=== PATIENT | female | born 1960 | race Caucasian/White ===

== ENCOUNTER → 2018-02-07 | Outpatient (CLI) | payer BC ==
--- NOTE | 2018-02-09 12:51 | RADIOLOGY REPORT (SQ) ---
EXAM DESCRIPTION: MRI PELVIS COMBO COMPLETED DATE/TIME: 02/07/2018 REASON FOR STUDY: RECTAL CANCER C20 MALIGNANT NEOPLASM OF RECTUM COMPARISON: None. TECHNIQUE: Sagittal, axial oblique, and coronal oblique T2-weighted images of the pelvis centered on the rectum. Additional postcontrast images are obtained. 10 cc ProHance. GFR greater than 60. FINDINGS: BRIEF DESCRIPTION OF MASS: Partially circumferential wall thickening in the rectum. Irreg ular wall thickening most pronounced posteriorly. LOCATION OF TUMOR: low. 0-5 cm. DISTANCE FROM ANORECTAL JUNCTION TO LOWER POLE OF TUMOR: 0 cm. LENGTH OF TUMOR: 3.9 cm. EXTENSION BEYOND MUSCULARIS PROPIA: Irregular spiculation along the left aspect of the mass and poste riorly, suspected extension into the mesorectum. Regional T2 hyperintense presacral edema. INVOLVEMENT OF THE MESORECTAL FASCIA: Yes, extension to involve the posterior mesorectal fascia. PATHOLOGIC LYMPH NODES: None suggested. BONES: Hyperintense T2 lesions in the sacrum, potentially underlying metastatic disease. OTHER: Bladder unremarkable. IMPRESSION: LOW RECTAL TUMOR WITH INVASION OF THE MESORECTAL MK AND EXTENSION TO INVOLVE THE MESOREC GUEVARA FASCIA. BONE LESIONS OUTLINED ABOVE, CONSIDER BONE SCAN EVALUATION. TECHNICAL DOCUMENTATION: JOB ID: [id number] [employer]- All Rights Reserved Reading location - IP/workstation name: [email or web address]
== END ==
LOC: RAD 08:19
PROVIDERS: ATTEND Internal Medicine Hematology & Oncology
DX: C20 Malignant neoplasm of rectum (principal)
CPT/HCPCS: 82565; 72197; A9576

== ENCOUNTER → 2018-02-11 | Outpatient (CLI) | payer BC ==
--- NOTE | 2018-02-11 10:31 | RADIOLOGY REPORT (SQ) ---
EXAM DESCRIPTION: CT CHEST WITH COMPLETED DATE/TIME: 02/11/2018 10:13 am REASON FOR STUDY: RECTAL CA C20 MALIGNANT NEOPLASM OF RECTUM COMPARISON: MR pelvis dated 02/07/2018 TECHNIQUE: CT scan of the chest performed using helical scanning technique with dynamic intravenous contrast injection. Images reviewed with lung, soft tissue and bone windows. Reconstructed coronal and sagittal MPR and MIP images reviewed. All images stored on PACS. All CT scanners at this facility use dose modulation, iterative reconstruction, and/or weight based d osing when appropriate to reduce radiation dose to as low as reasonably achievable (ALARA). [facility]: Dose Right [facility]: CareDose [facility]: Dose Right [facility]: Teradose 4D [facility]: [employer]Spring CONTRAST TYPE AND DOSE: 76.2 mL Isovue 370- low osmolar. RENAL FUNCTION: Creatinine 0.8 RADIATION DOSE: . LIMITATIONS: None. FINDINGS: LUNGS AND PLEURA: There are multiple bilateral subpleural nodules. These are nonspecific. These range in size from approximately 3.6 mm up to 6.8 mm. No consolidation or effusions. HILAR AND MEDIASTINAL STRUCTURES: No identified masses or abnormal nodes. HEART AND VASCULAR STRUCTURES: No aneurysm or dissection. No central pulmonary emboli. No pericardi al effusion. HARDWARE: None in the chest. UPPER ABDOMEN: No significant findings. Limited exam. THYROID AND OTHER SOFT TISSUES: No masses. No adenopathy. BONES: No significant finding. OTHER: No other significant finding. IMPRESSION: Multiple small subpleural pulmonary nodules. These are nonspecific but will need follow up. TECHNICAL DOCUMENTATION: JOB ID: [id number] Quality ID # [id number]: Final reports with documentation of one or more dose reduction techniques (e.g., Au tomated exposure control, adjustment of the mA and/or kV according to patient size, use of iterative reconstruction technique) 2010 [employer]- All Rights Reserved Reading location - IP/workstation name: [email or web address]
--- NOTE | 2018-02-11 10:33 | RADIOLOGY REPORT (SQ) ---
EXAM DESCRIPTION: CT ABDOMEN WITH IV ORAL CONT COMPLETED DATE/TIME: 02/11/2018 10:13 am REASON FOR STUDY: RECTAL CA C20 MALIGNANT NEOPLASM OF RECTUM COMPARISON: None. TECHNIQUE: CT scan of the abdomen performed with intravenous and with oral contrast using helical sc anning technique with dynamic intravenous contrast injection. Images reviewed with lung, soft tissue, and bone windows. Reconstructed coronal and sagittal MPR images reviewed. Delayed images for evaluat ion of the urinary system also acquired and evaluated. All images stored on PACS. All CT scanners at this facility use dose modulation, iterative reconstruc tion, and/or weight based dosing when appropriate to reduce radiation dose to as low as reasonably ac hievable (ALARA). [facility]: Dose Right [facility]: CareDose [facility]: Dose Right [facility]: Teradose 4D [facility]: [employer] CONTRAST TYPE AND DOSE: contrast/concentration: Isovue 350.00 mg/ml; Total Contrast Delivered: 76.0 ml; Total Saline Delivered: 67.0 ml RENAL FUNCTION: Creatinine 0.8 RADIATION DOSE: CT Rad equipment meets quality standard of care and radiation dose reduction techniq ues were employed. CTDIvol: 4.4 - 4.6 mGy. DLP: 446 mGy-cm. . LIMITATIONS: None. FINDINGS: LOWER CHEST: Please refer to the chest CT for lung findings. There are small subpleural n odules. LIVER: No masses. There are mildly prominent central bile ducts. SPLEEN: Normal size. No focal lesions. PANCREAS: No masses. No significant calcifications. No adjacent inflammation or peripancreatic fluid collections. Pancreatic duct not dilated. GALLBLADDER: There is large amount of gallbladder sludge. Probable septation in the gallbladder neck . Correlation with ultrasound is recommended. ADRENAL GLANDS: No significant masses or asymmetry. RIGHT KIDNEY AND URETER: No solid masses. No significant calcifications. No hydronephrosis or hyd roureter. LEFT KIDNEY AND URETER: No solid masses. No significant calcifications. No hydronephrosis or hydr oureter. AORTA AND VESSELS: No aneurysm. No dissection. Renal arteries, SMA, celiac without stenosis. RETROPERITONEUM: No retroperitoneal adenopathy, hemorrhage or masses. BOWEL AND PERITONEAL CAVITY: No masses or inflammatory changes. No free fluid or peritoneal masses. APPENDIX: Not imaged. ABDOMINAL WALL: No masses. No hernias. BONES: No significant or acute findings. OTHER: No other significant finding. IMPRESSION: 1. Large amount of gallbladder sludge with mildly dilated central bile ducts. Correlati on with ultrasound is recommended. No other significant findings. TECHNICAL DOCUMENTATION: JOB ID: [id number] Quality ID # [id number]: Final reports with documentation of one or more dose reduction techniques (e.g., Au tomated exposure control, adjustment of the mA and/or kV according to patient size, use of iterative reconstruction technique) 2010 [employer]- All Rights Reserved Reading location - IP/workstation name: [email or web address]
== END ==
LOC: RAD 08:20
PROVIDERS: ATTEND Internal Medicine Hematology & Oncology
DX: C20 Malignant neoplasm of rectum (principal); R91.8 Other nonspecific abnormal finding of lung field
CPT/HCPCS: 71260; 74160

== ENCOUNTER → 2018-02-24 | Outpatient (CLI) | payer BC ==
--- NOTE | 2018-02-25 09:22 | RADIOLOGY REPORT (SQ) ---
EXAM DESCRIPTION: PET CT SKULL/THIGH COMPLETED DATE/TIME: 02/24/2018 8:10 pm REASON FOR STUDY: RECTAL CANCER C20 MALIGNANT NEOPLASM OF RECTUM COMPARISON: None. RADIONUCLIDE AND DOSE: 10.4 mCi F18 FDG The route of agent administration: Intravenous FASTING BLOOD SUGAR: 87 mg/dl CONTRAST TYPE AND DOSE: No CT contrast given. TECHNIQUE: Blood glucose level was verified. Above dose of FDG was injected intravenously. 2-D seg mented attenuation correction images were obtained from the base of the skull to the midthighs. Nonc ontrast CT images were obtained for attenuation correction and fusion with emission images. CT image s were performed without oral or intravenous contrast and are not sensitive for parenchymal lesions. A series of overlapping emission PET images were obtained. Images reviewed and manipulated at [facility] [employer] work station by the radiologist. Images stored on PACS. LIMITATIONS: None. FINDINGS: HEAD AND NECK: No areas of abnormal metabolic activity in the soft tissues of the head and neck. CHEST: No areas of abnormal metabolic activity in the chest. ABDOMEN AND PELVIS: Several hypermetabolic retroperitoneal nodes measuring 3.5 to 4.0 SUV. Morpholog ically up to 1 cm. Hypermetabolic pelvic nodes measuring 3.1 to 3.5 SUV. Largest is a right externa l iliac chain node measuring 1.5 cm and 6.1 to 6.8 SUV. Hypermetabolic rind of right rectal tissue 5 .4 to 6.5 SUV. PROXIMAL LOWER EXTREMITIES: No areas of abnormal metabolic activity in the soft tissues of the lower extremities. BONES: No abnormal metabolic activity in the visualized skeleton. ADDITIONAL CT FINDINGS: Stable occasional subpleural nodules measuring up to about 6 mm in the right lower lobe. Non hypermetabolic but below size threshold for negative predictive value. OTHER: No other significant findings. IMPRESSION: Hypermetabolic rectal mass. Hypermetabolic pelvic and retroperitoneal nodes. TECHNICAL DOCUMENTATION: JOB ID: [id number] [employer]- All Rights Reserved Reading location - IP/workstation name: [email or web address]
== END ==
LOC: RAD 17:42
PROVIDERS: ATTEND Radiology Radiation Oncology
DX: C20 Malignant neoplasm of rectum (principal)
CPT/HCPCS: 78815; A9552

== ENCOUNTER 2018-03-23 05:54 | Day surgery (SDC) | payer BC ==
[~2018-03-23 05:54] MED LIST: CEFAZOLIN 2 GM/D5W RTU 2 GM/50 ML RTUPB IV PRN; DIAZEPAM 5 MG TABLET PO PRN; OXYCODONE-ACETAMINOPHEN 5-325 MG TABLET PO PRN
--- NOTE | 2018-03-23 06:23 | RADIOLOGY REPORT (SQ) ---
EXAM DESCRIPTION: X-ray single view chest. CLINICAL HISTORY: 57 years Female, preop COMPARISON: None. TECHNIQUE: Single portable view of the chest performed on 03/23/2018 at 6:17 AM FINDINGS: The lungs are well expanded and are clear. There is no evidence of a pneumothorax. The cardiac silhouette is normal in size and configuration. The mediastinal contours are normal. No acute osseous abnormality is identified. No focal soft tissue abnormalities are seen. Lines and tubes: None. IMPRESSION: No evidence of acute intrathoracic disease.
[2018-03-23 06:37] LABS: ABSOLUTE BASOPHILS # (AUTO) 0.1 10^3/uL (0.0-0.2); ABSOLUTE EOSINOPHILS # (AUTO) 0.4 10^3/uL (0.0-0.6); ABSOLUTE LYMPHOCYTES (AUTO) 1.8 10^3/uL (0.5-4.7); ABSOLUTE MONOCYTES (AUTO) 0.4 10^3/uL (0.1-1.4); ABSOLUTE NEUT (AUTO) 3.5 10^3/uL (1.7-8.2); BASOPHILS % (AUTO) 0.8 % (0-2); EOSINOPHILS % (AUTO) 6.5 % (0-6); HEMATOCRIT 38.7 % (36.0-47.0); HEMOGLOBIN 13.7 g/dL (12.0-15.5); LYMPHOCYTES % (AUTO) 29.2 % (13-45); MEAN CORPUSCULAR HEMOGLOBIN 30.5 pg (27.0-33.4); MEAN CORPUSCULAR HGB CONC 35.4 g/dL (32.0-36.0); MEAN CORPUSCULAR VOLUME 86 fl (80-97); MONOCYTES % (AUTO) 6.4 % (3-13); PLATELET COUNT 181 10^3/uL (150-450); RED BLOOD COUNT 4.49 10^6/uL (3.72-5.28); RED CELL DISTRIBUTION WIDTH 12.8 % (11.5-14.0); SEGMENTED NEUTROPHILS % (AUTO) 57.1 % (42-78); TOTAL CELLS COUNTED % (AUTO) 100 %; WHITE BLOOD COUNT 6.1 10^3/uL (4.0-10.5)
[2018-03-23] MEDS ORDERED: OXYCODONE-ACETAMINOPHEN 5-325 MG TABLET ONE (06:37)
[2018-03-23] MEDS ORDERED: DIAZEPAM 5 MG TABLET ONE (06:37)
[2018-03-23] MEDS ORDERED: CEFAZOLIN 1 GM/D5W RTU 1 GM/50 ML RTUPB IV ONE (06:38)
[2018-03-23 06:59] LABS: ANION GAP 9 (5-19); BLOOD UREA NITROGEN 11 mg/dL (7-20); CALCIUM 9.4 mg/dL (8.4-10.2); CARBON DIOXIDE 27 mmol/L (22-30); CHLORIDE 107 mmol/L (98-107); GLUCOSE 96 mg/dL (75-110); POTASSIUM 3.9 mmol/L (3.6-5.0); SODIUM 142.8 mmol/L (137-145)
[2018-03-23] MEDS ORDERED: BACITRACIN INJ 50,000 UNIT VIAL ONE (07:18)
[2018-03-23] MEDS ORDERED: LIDOCAINE 0.5% INJ-PF (5 MG/ML) 50 ML SDV ONE (07:18)
[2018-03-23] MEDS ORDERED: MIDAZOLAM 2 MG/2 ML INJ ONE (07:42)
[2018-03-23] MEDS ORDERED: FENTANYL CITRATE INJ/PF 100 MCG/2 ML AMPUL ONE (07:42)
--- NOTE | 2018-03-23 08:44 | Discharge Summary ---
Discharge Summary (SDC) - Discharge Final Diagnosis: Rectal cancer Date of Surgery: 03/23/18 Discharge Date: 03/23/18 Condition: Good Treatment or Instructions: Discharge home [after recovery per ASU criteria]. Diet , as tolerated, when fully awake advance as tolerated. Activities within moderation encouraged. Follow up in my office by appointment in about [1 week]. Call for appointment. Leave wounds [covered], [keep clean and dry, until office visit in 1 week]. Hold of on school/work [until evaluation in office]. Meds per med rec. May shower [in 48 hrs], [try to keep operated area as dry as possible]. Referrals: GÓMEZ PETERSON MD [Primary Care Provider] - Discharge Diet: As Tolerated Respiratory Treatments at Home: Deep Breathing/Coughing Discharge Activity: Activity As Tolerated Report the Following to Your Physician Immediately: Shortness of Breath, Unusual Bleeding
--- NOTE | 2018-03-23 08:47 | Operative Report ---
Operative Report DATE OF SURGERY: 03/23/18 PREOPERATIVE DIAGNOSIS: Rectal cancer POSTOPERATIVE DIAGNOSIS: Rectal cancer OPERATION: 1. Ultrasound evaluation of the right internal jugular vein. 2. Insertion of single-lumen Port-A-Cath via real time access in the right internal jugular vein. 3. Angiogram and interpretation. SURGEON: [employer]ICE LEAD: None. ANESTHESIA: Moderate Sedation TISSUE REMOVED OR ALTERED: Not applicable. COMPLICATIONS: None. ESTIMATED BLOOD LOSS: 5 mL. INTRAOPERATIVE FINDINGS: Of a satisfactory right internal jugular vein, about 1.5 cm in diameter. Satisfactory and safe access under ultrasound guidance. Satisfactory position with the tip of the catheter just down in the right atrium. Easy egress of blood and ingress of heparinized solution. Smooth flow of contrast through the right atrium ventricle and pulmonary outflow tract. PROCEDURE: After obtaining informed consent, the patient was taken to the [facility] and positioned supine. The [right] neck and chest were prepared with chlorhexidine and draped out with sterile linen. After the " universal timeout", in which it was verified that the patient continued to receive antibiotic, the procedure commenced. A steriley sheathed ultrasound probe was used to evaluate the [ right] internal jugular vein. Local anesthesia was infiltrated adjacent to the probe. Access into the [right] internal jugular vein was obtained using a micropuncture needle, followed by micropuncture wire and then a micropuncture catheter. This was followed by introduction of a 0.035 guidewire the tip of which was placed down into the inferior vena cava . The port sites was marked , locally anesthetized and incision made. Dissection now proceeded to the deep subcutaneous subcutaneous tissues so that a pocket for the port was made. Meticulous hemostasis was secured and the catheter was tunneled between the 2 incisions. Proximally, the catheter was now positioned using a peel-away sheath. Distally the catheter was tailored to an appropriate length and then mated to the port using the contained fixating device. The port was now placed in the pocket and the catheter optimally positioned. The port was accessed with a Mendenhall needle and an angiogram done under digital subtraction. The findings as dictated. With adequate and satisfactory positioning, both lumens of the chamber were irrigated with heparinized solution. The wounds were now closed using interrupted 3-0 PDS to the subcutaneous tissues and a continuous subcuticular suture of 4-0 Monocryl to the skin. These are reinforced with Steri-Strips over benzoin and then dressings applied. Time: 0.3 minute. Dose: 3.44 m Gy Contrast: 5 Mls. Isovue 300. Copies of the dictated operative report for Dr. Cisco Gilbert MD.
--- NOTE | 2018-03-23 10:02 | RADIOLOGY REPORT (SQ) ---
EXAM DESCRIPTION: PORTACATH INSERTION COMPLETED DATE/TIME: 03/23/2018 8:45 am REASON FOR STUDY: C20 RECTAL CA C20 MALIGNANT NEOPLASM OF RECTUM COMPARISON: None. FLUOROSCOPY TIME: 0.3 minutes 14 digital radiographic images saved to PACS. TECHNIQUE: Intra-operative images acquired during surgical procedure to evaluate progress. NUMBER OF IMAGES: 14 digital radiographic images LIMITATIONS: None. FINDINGS: Intra procedural imaging and fluoro during placement of a central venous catheter by Dr. Jesus candelario in the laborer aquatic life. Please see the operative report IMPRESSION: IMAGE(S) OBTAINED DURING PROCEDURE. COMMENT: Quality ID [id number]: Final reports for procedures using fluoroscopy that document radiation exp osure indices, or exposure time and number of fluorographic images (if radiation exposure indices are not available) Please consult full operative report of the attending physician for description of the procedure. TECHNICAL DOCUMENTATION: JOB ID: [id number] [employer]- All Rights Reserved Reading location - IP/workstation name: [email or web address]
[2018-03-23 11:29] VITALS: BP 164/97
== END 2018-03-23 10:10 | disposition home or self-care (01) ==
LOC: CCL 05:54
PROVIDERS: ATTEND Surgery
DX: C20 Malignant neoplasm of rectum (principal); I10 Essential (primary) hypertension; E78.00 Pure hypercholesterolemia, unspecified; F17.210 Nicotine dependence, cigarettes, uncomplicated; Z79.899 Other long term (current) drug therapy; Z79.82 Long term (current) use of aspirin; Z79.1 Long term (current) use of non-steroidal anti-inflammatories (NSAID); Z01.818 Encounter for other preprocedural examination
CPT/HCPCS: 36415; 85025; 80048; 36561; 76937; 77001; 71045; C1752; C1788; J2250; J3490 ×2; J0690; J3010; J1644

== ENCOUNTER → 2018-04-01 | Outpatient (CLI) | payer BC ==
[2018-04-01 12:05] LABS: ABSOLUTE EOSINOPHILS # (AUTO) 0.4 10^3/uL (0.0-0.6); ABSOLUTE LYMPHOCYTES (AUTO) 1.4 10^3/uL (0.5-4.7); ABSOLUTE MONOCYTES (AUTO) 0.4 10^3/uL (0.1-1.4); ABSOLUTE NEUT (AUTO) 4.5 10^3/uL (1.7-8.2); BASOPHILS % (AUTO) 0.7 % (0-2); EOSINOPHILS % (AUTO) 5.7 % (0-6); HEMATOCRIT 40.1 % (36.0-47.0); HEMOGLOBIN 14.3 g/dL (12.0-15.5); LYMPHOCYTES % (AUTO) 21.3 % (13-45); MEAN CORPUSCULAR HEMOGLOBIN 30.5 pg (27.0-33.4); MEAN CORPUSCULAR HGB CONC 35.7 g/dL (32.0-36.0); MEAN CORPUSCULAR VOLUME 85 fl (80-97); MONOCYTES % (AUTO) 6.2 % (3-13); PLATELET COUNT 218 10^3/uL (150-450); RED BLOOD COUNT 4.71 10^6/uL (3.72-5.28); RED CELL DISTRIBUTION WIDTH 12.9 % (11.5-14.0); SEGMENTED NEUTROPHILS % (AUTO) 66.1 % (42-78); TOTAL CELLS COUNTED % (AUTO) 100 %; WHITE BLOOD COUNT 6.8 10^3/uL (4.0-10.5)
[2018-04-01 12:17] LABS: BLOOD UREA NITROGEN 12 mg/dL (7-20)
[2018-04-01 12:41] LABS: CARCINOEMBRYONIC ANTIGEN 5.6 ng/mL (<3.0)
== END ==
LOC: OD 10:48
PROVIDERS: ATTEND Radiology Radiation Oncology
DX: C20 Malignant neoplasm of rectum (principal); C77.5 Secondary and unspecified malignant neoplasm of intrapelvic lymph nodes; C77.2 Secondary and unspecified malignant neoplasm of intra-abdominal lymph nodes
CPT/HCPCS: 36415; 82378; 82565; 84520; 85025

== ENCOUNTER → 2018-06-05 | Outpatient (CLI) | payer BC ==
--- NOTE | 2018-06-05 10:19 | RADIOLOGY REPORT (SQ) ---
EXAM DESCRIPTION: CT CHEST WITH COMPLETED DATE/TIME: 06/05/2018 9:46 am REASON FOR STUDY: C20 MALIGNANT NEOPLASM OF RECTUM R91.1 SOLITARY PULMONARY NODULE C20 MALIGNANT NE OPLASM OF RECTUM R91.1 SOLITARY PULMONARY NODULE COMPARISON: PET-CT 02/24/2018 CT chest abdomen pelvis 02/11/2018 TECHNIQUE: CT scan of the chest performed using helical scanning technique with dynamic intravenous contrast injection. Images reviewed with lung, soft tissue and bone windows. Reconstructed coronal and sagittal MPR and MIP images reviewed. All images stored on PACS. All CT scanners at this facility use dose modulation, iterative reconstruction, and/or weight based d osing when appropriate to reduce radiation dose to as low as reasonably achievable (ALARA). [facility]: Dose Right [facility]: CareDose [facility]: Dose Right [facility]: Teradose 4D [facility]: [employer] CONTRAST TYPE AND DOSE: contrast/concentration: Isovue 350.00 mg/ml; Total Contrast Delivered: 80.0 ml; Total Saline Delivered: 55.0 ml RENAL FUNCTION: Creatinine 0.6 RADIATION DOSE: CT Rad equipment meets quality standard of care and radiation dose reduction techniq ues were employed. CTDIvol: 3.5 mGy. DLP: 126 mGy-cm. . LIMITATIONS: None. FINDINGS: LUNGS AND PLEURA: No acute infiltrates. No pleural effusion or pneumothorax. There are multiple small less than 5 mm noncalcified subpleural nodules along the periphery of both l ungs, likely benign postinflammatory change. These findings are stable compared to both prior studie s. HILAR AND MEDIASTINAL STRUCTURES: No identified masses or abnormal nodes. HEART AND VASCULAR STRUCTURES: No aneurysm or dissection. No central pulmonary emboli. No pericardi al effusion. HARDWARE: Right jugular central line tip superior vena cava. UPPER ABDOMEN: No significant findings. Limited exam. THYROID AND OTHER SOFT TISSUES: No masses. No adenopathy. BONES: No significant finding. OTHER: No other significant finding. IMPRESSION: Multiple small less than 5 mm noncalcified bilateral subpleural nodules, likely benign p ostinflammatory change. These are stable compared to 02/24/2018 and 02/11/2018 exams TECHNICAL DOCUMENTATION: JOB ID: [id number] Quality ID # [id number]: Final reports with documentation of one or more dose reduction techniques (e.g., Au tomated exposure control, adjustment of the mA and/or kV according to patient size, use of iterative reconstruction technique) 2010 [employer]- All Rights Reserved Reading location - IP/workstation name: [email or web address]
== END ==
LOC: RAD 13:35
PROVIDERS: ATTEND Internal Medicine Hematology & Oncology
DX: C20 Malignant neoplasm of rectum (principal); R91.8 Other nonspecific abnormal finding of lung field
CPT/HCPCS: 71260

== ENCOUNTER → 2018-07-02 | Outpatient (CLI) | payer BC ==
--- NOTE | 2018-07-02 19:55 | DRAGON STRESS TEST REPORT ---
Exercise EKG treadmill stress test. Data procedure: July 02, 2018 Indication: Preop cardiac clearance and chest pain. Coronary risk factors: Smoking, dyslipidemia, hypertension. Significant physical findings prior to stress testing show a blood pressure of 77, and a heart rate of 132/80 beats per minute. Brief exam revealed no contraindication for patient proceeding with treadmill stress test. Resting 12-lead EKG: Sinus rhythm, no baseline ST-T wave changes are noted. Procedure: The patient was excised on a standard Benjamin protocol. The patient walked a total of 6 minutes minutes and 0 seconds on this protocol and reached a peak heart rate of 139 beats per minute, which is 84 percent of maximum predicted heart rate for age. This is at a workload of 7.0 METS. The test was stopped because of fatigue and tiredness. The patient described no symptoms of chest pain. Exercise EKG's show: No significant ST segment changes. Arrhythmias seen: None The blood pressure response was adequate. At peak exercise the blood pressure was 178/86 millimeters of Hg. The double product was 24.4 K. Summary of findings and interpretation: 1. No chest pain or chest discomfort symptoms reproduced. 2. No EKG evidence of ischemia in the form of ST segment depression. 3. Normal blood pressure response. 4. No arrhythmias seen. 5. Average exercise tolerance, average aerobic capacity. Diagnostic treadmill stress test negative for ischemia by EKG criteria. Recommendations: Aggressive risk factor modification, and treatment of underlying co-morbidities. Sunni Charles M.D., [employer] Examiner catalog specialist, Board certified in cardiovascular diseases, Nuclear cardiology, Echocardiography Cardiac CT and cardiac MRI Ph. [phone] [facility]
== END ==
LOC: SP 09:36
PROVIDERS: ATTEND Surgery
DX: R07.9 Chest pain, unspecified (principal); F17.200 Nicotine dependence, unspecified, uncomplicated
CPT/HCPCS: 93017

== ENCOUNTER → 2018-07-28 | Outpatient (CLI) | payer BC ==
--- NOTE | 2018-07-28 15:55 | RADIOLOGY REPORT (SQ) ---
EXAM DESCRIPTION: MRI HEAD COMBO COMPLETED DATE/TIME: 07/28/2018 3:41 pm REASON FOR STUDY: FACIAL NUMBNESS,RECTAL CA R29.818 OTHER SYMPTOMS AND SIGNS INVOLVING THE NERVOUS SYSTE C20 MALIGNANT NEOPLASM OF RECTUM COMPARISON: None. TECHNIQUE: Multiplanar imaging includes noncontrasted T1, T2, FLAIR, and Diffusion with ADC map seq uences. Contrast enhanced T1 images. Images stored on PACS. CONTRAST TYPE AND DOSE: 10 mL Dotarem. RENAL FUNCTION: GFR > 60. LIMITATIONS: None. FINDINGS: ANATOMY: No anomalies. Normal vascular flow voids. Pituitary fossa normal. CSF SPACES: Normal size and contour. No hemorrhage. CEREBRUM: A few high-signal intensity lesions scattered throughout the white matter on FLAIR imaging with distribution suggesting chronic microvascular ischemic change. Sulci and gyri normal in size and contour. No evidence of hemorrhage, mass or extraaxial fluid collection. No enhancing lesions. POSTERIOR FOSSA: No signal alteration. No hemorrhage. No edema, masses or mass effect. Internal audit ory canals, cerebello-pontine angles, mastoids normal. DIFFUSION: Negative for acute or subacute infarction. ORBITS: No masses. Globes normal. PARANASAL SINUSES: No fluid levels. Mucosa normal. OTHER: No other significant finding. IMPRESSION: No evidence of metastatic disease. EVIDENCE OF ACUTE STROKE: NO. TECHNICAL DOCUMENTATION: JOB ID: [id number] [employer]- All Rights Reserved Reading location - IP/workstation name: [email or web address]
== END ==
LOC: RAD 14:50
PROVIDERS: ATTEND Internal Medicine Hematology & Oncology
DX: C20 Malignant neoplasm of rectum (principal); R29.818 Other symptoms and signs involving the nervous system
CPT/HCPCS: 70553; 82565

== ENCOUNTER 2018-07-31 08:09 | Observation (INO) | payer BC ==
--- NOTE | 2018-07-24 10:38 | RADIOLOGY REPORT (SQ) ---
EXAM DESCRIPTION: CHEST PA/LATERAL COMPLETED DATE/TIME: 07/24/2018 10:29 am REASON FOR STUDY: PRE-OP COMPARISON: None. EXAM PARAMETERS: NUMBER OF VIEWS: two views TECHNIQUE: Digital Frontal and Lateral radiographic views of the chest acquired. RADIATION DOSE: NA LIMITATIONS: none FINDINGS: LUNGS AND PLEURA: No opacities, masses or pneumothorax. No pleural effusion. MEDIASTINUM AND HILAR STRUCTURES: No masses or contour abnormalities. HEART AND VASCULAR STRUCTURES: Heart normal size. No evidence for failure. BONES: No acute findings. HARDWARE: Right Kmygnj-P-Noje catheter. OTHER: No other significant finding. IMPRESSION: 1. NO SIGNIFICANT RADIOGRAPHIC FINDING IN THE CHEST. TECHNICAL DOCUMENTATION: JOB ID: [id number] [employer]- All Rights Reserved Reading location - IP/workstation name: [email or web address]
[2018-07-24 11:10] LABS: HEMATOCRIT 38.3 % (36.0-47.0); HEMOGLOBIN 13.4 g/dL (12.0-15.5); MEAN CORPUSCULAR HEMOGLOBIN 31.7 pg (27.0-33.4); MEAN CORPUSCULAR VOLUME 91 fl (80-97); PLATELET COUNT 180 10^3/uL (150-450); RED BLOOD COUNT 4.23 10^6/uL (3.72-5.28); RED CELL DISTRIBUTION WIDTH 13.3 % (11.5-14.0)
[2018-07-24 11:39] LABS: ANION GAP 7 (5-19); BLOOD UREA NITROGEN 16 mg/dL (7-20); CALCIUM 9.3 mg/dL (8.4-10.2); CARBON DIOXIDE 31 mmol/L (22-30); CHLORIDE 104 mmol/L (98-107); GLUCOSE 93 mg/dL (75-110); POTASSIUM 4.3 mmol/L (3.6-5.0); SODIUM 141.6 mmol/L (137-145)
[~2018-07-31 08:09] MED LIST changes: +BUPIVACAINE HCL 0.25 % INJ/PF (2.5 MG/1 ML) 30 ML VIAL ONE; -CEFAZOLIN 2 GM/D5W RTU 2 GM/50 ML RTUPB IV PRN; +CEFOXITIN SODIUM 2 GM in DEXTROSE 5%-WATER 100 ML IV PRN; -DIAZEPAM 5 MG TABLET PO PRN; +IBUPROFEN 800 MG in NORMAL SALINE 250 ML IV PRN; +LACTATED RINGERS 1000 ML IV PRN; +LIDOCAINE 0.5% INJ-PF (5 MG/ML) 50 ML SDV SUBCUT PRN; -OXYCODONE-ACETAMINOPHEN 5-325 MG TABLET PO PRN
[2018-07-31] MEDS ORDERED: CEFAZOLIN 2 GM/D5W RTU 0 GM/0 ML RTUPB IV ONE (08:39)
[2018-07-31] MEDS ORDERED: ROCURONIUM BROMIDE INJ 50 MG/5 ML VIAL IV ONE (09:56)
[2018-07-31] MEDS ORDERED: SUCCINYLCHOLINE CHLORIDE INJ 200 MG/10 ML VIAL ONE (09:56)
[2018-07-31] MEDS ORDERED: FENTANYL CITRATE INJ/PF 250 MCG/5 ML AMPULE ONE (09:58)
[2018-07-31] MEDS ORDERED: MIDAZOLAM 2 MG/2 ML INJ ONE (09:58)
[2018-07-31] MEDS ORDERED: PROMETHAZINE HCL INJ 25 MG/1 ML VIAL ONE (09:58)
[2018-07-31] MEDS ORDERED: ONDANSETRON HCL INJ/PF 4 MG/2 ML SDV ONE (09:59)
[2018-07-31] MEDS ORDERED: EPHEDRINE SULFATE INJ 50 MG/1 ML AMPULE ONE (09:59)
[2018-07-31] MEDS ORDERED: PROPOFOL INJ 200 MG/20 ML VIAL IV ONE (09:59)
[2018-07-31] MEDS ORDERED: DEXAMETHASONE SOD PHOSPHATE INJ 4 MG/1 ML VIAL ONE (09:59)
[2018-07-31] MEDS ORDERED: ACETAMINOPHEN 0 MG/0 ML RTUPB IV ONE (09:59)
[2018-07-31] MEDS ORDERED: HYDROMORPHONE HCL INJ/PF 2 MG/ML AMPULE ONE (09:59)
[2018-07-31] MEDS ORDERED: SUGAMMADEX SODIUM 200 MG/2 ML SDV IV ONE (11:32)
[2018-07-31] MEDS ORDERED: NITROGLYCERIN 0.4 MG/TAB 25 TAB/BOTTLE ONE (12:03)
[2018-07-31] MEDS ORDERED: MORPHINE SULFATE 10 MG/ML INJ IV PRN (12:07)
[2018-07-31] MEDS ORDERED: ONDANSETRON HCL INJ/PF 4 MG/2 ML SDV IV PRN (12:07)
[2018-07-31 12:17] LABS: CREATINE KINASE MB 0.28 ng/mL (<4.55)
[2018-07-31 12:18] LABS: TROPONIN I < 0.012 ng/mL
[2018-07-31 18:30] LABS: CREATINE KINASE MB 0.82 ng/mL (<4.55); TROPONIN I 0.017 ng/mL
--- NOTE | 2018-07-31 21:22 | EKG REPORT ---
SEVERITY:- NORMAL ECG - SINUS RHYTHM : Confirmed by: Gabi Pineda MD 31-Jul-2018 21:20:34
[2018-07-31] MEDS ORDERED: NITROGLYCERIN 2% OINTMENT 1 GM PACKET TP PRN (22:08)
[2018-07-31] MEDS ORDERED: DEXTROSE 40% GEL 15 GM TUBE PO PRN ×2 (22:34)
[2018-07-31] MEDS ORDERED: GLUCAGON,HUMAN RECOMB 1 MG INJ SUBCUT PRN (22:34)
[2018-07-31] MEDS ORDERED: DEXTROSE 50%-WATER 25 GM/50 ML DISP.SYRIN IV PRN ×2 (22:34)
[2018-07-31] MEDS: POTASSI CL 20 MEQ/D5-1/2NS 1L 1,000 ML IV PRN (23:22)
[2018-08-01 00:45] LABS: CREATINE KINASE MB 0.59 ng/mL (<4.55); TROPONIN I 0.012 ng/mL
[2018-08-01 05:02] LABS: ABSOLUTE LYMPHOCYTES (AUTO) 0.5 10^3/uL (0.5-4.7); ABSOLUTE MONOCYTES (AUTO) 0.6 10^3/uL (0.1-1.4); ABSOLUTE NEUT (AUTO) 7.3 10^3/uL (1.7-8.2); BASOPHILS % (AUTO) 0.3 % (0-2); EOSINOPHILS % (AUTO) 0.5 % (0-6); HEMATOCRIT 33.8 % (36.0-47.0); HEMOGLOBIN 11.8 g/dL (12.0-15.5); LYMPHOCYTES % (AUTO) 6.3 % (13-45); MEAN CORPUSCULAR HEMOGLOBIN 31.6 pg (27.0-33.4); MEAN CORPUSCULAR HGB CONC 35.1 g/dL (32.0-36.0); MEAN CORPUSCULAR VOLUME 90 fl (80-97); MONOCYTES % (AUTO) 6.9 % (3-13); PLATELET COUNT 156 10^3/uL (150-450); RED BLOOD COUNT 3.74 10^6/uL (3.72-5.28); RED CELL DISTRIBUTION WIDTH 12.6 % (11.5-14.0); TOTAL CELLS COUNTED % (AUTO) 100 %; WHITE BLOOD COUNT 8.5 10^3/uL (4.0-10.5)
[2018-08-01 05:17] LABS: ANION GAP 6 (5-19); BLOOD UREA NITROGEN 9 mg/dL (7-20); CALCIUM 9.1 mg/dL (8.4-10.2); CARBON DIOXIDE 28 mmol/L (22-30); CHLORIDE 107 mmol/L (98-107); GLUCOSE 121 mg/dL (75-110); POTASSIUM 4.4 mmol/L (3.6-5.0); SODIUM 140.8 mmol/L (137-145)
[2018-08-01] MEDS: POTASSI CL 20 MEQ/D5-1/2NS 1L 1,000 ML IV PRN (08:11)
--- NOTE | 2018-08-01 08:44 | PDOC DISCHARGE SUMMARY ---
General - Admit/Disc Date/PCP Admission Date/Primary Care Provider: 07/31/18 08:09 CORAL VERMA MD Discharge Date: 08/01/18 - Additional Information Discharge Diet: As Tolerated Discharge Activity: Activity As Tolerated Home Medications: Lisinopril 20 mg PO QAM 03/20/18 Lovastatin [Altoprev] 20 mg PO QHS 03/20/18 Cholecalciferol (Vitamin D3) [Vitamin D3 5000 unit Capsule] 5,000 unit PO DAILY 07/24/18 Docusate Sodium [Colace] 200 mg PO DAILYP PRN 07/24/18 Garlic 1,000 mg PO DAILY 07/24/18 Ibuprofen [Motrin 800 mg Tablet] 800 mg PO DAILYP PRN 07/24/18 [place]-3S/Dha/Epa/Fish Oil [Fish Oil 1,200 mg Softgel] 1 each PO DAILY 07/24/18 History of Present Illness History of Present Illness: RAY BURGESS is a 57 year old female admitted for surgery to address her rectal cancer. Anesthesia was induced and there were changes on the patient's EKG. The surgery was halted and a cardiology consult was sought. Hospital Course Hospital Course: The pt was sent to the floor on telemetry. She was evaluated by Dr. Monique. Her EKG and cardiac enzymes were normal. She was cleared for surgery. On Friday, a discussion was held with OR staff and anesthesia. It was felt that there were not enough resources available on the weekend for such a lengthy case. Will plan for discharge today. Will plan to reschedule the case for possibly Friday. Physical Exam Vital Signs: Temp Pulse Resp BP Pulse Ox 98.4 F 63 20 121/67 100 08/01/18 06:26 08/01/18 07:00 08/01/18 06:26 08/01/18 06:26 08/01/18 06:26 Intake & Output 07/31/18 08/01/18 08/02/18 06:59 06:59 06:59 Intake Total 1586 882 Output Total 170 Balance 1416 882 Weight 65 kg Results Laboratory Results: 08/01/18 04:47 08/01/18 04:47 08/01/18 08/01/18 04:47 04:47 WBC 8.5 RBC 3.74 Hgb 11.8 L Hct 33.8 L MCV 90 MCH 31.6 MCHC 35.1 RDW 12.6 Plt Count 156 Seg Neutrophils % 86.0 H Lymphocytes % 6.3 L Monocytes % 6.9 Eosinophils % 0.5 Basophils % 0.3 Absolute Neutrophils 7.3 Absolute Lymphocytes 0.5 Absolute Monocytes 0.6 Absolute Eosinophils 0.0 Absolute Basophils 0.0 Sodium 140.8 Potassium 4.4 Chloride 107 Carbon Dioxide 28 Anion Gap 6 BUN 9 Creatinine 0.56 Est GFR ( Amer) > 60 Est GFR (Non-Af Amer) > 60 Glucose 121 H Calcium 9.1 07/31/18 07/31/18 07/31/18 11:30 11:30 17:50 Creatine Kinase 50 53 CK-MB (CK-2) 0.28 Troponin I < 0.012 07/31/18 08/01/18 08/01/18 17:50 00:14 00:14 Creatine Kinase 49 CK-MB (CK-2) 0.82 0.59 Troponin I 0.017 0.012 Impressions: Chest X-Ray 07/24/18 10:18 IMPRESSION: 1. NO SIGNIFICANT RADIOGRAPHIC FINDING IN THE CHEST. Qualifiers - * PATIENT BEING DISCHARGED WITH ANY OF THE FOLLOWING DIAGNOSIS: No Plan Discharge Plan: D/c home. diet as tolerated. activity as tolerated. Will call with new day/time for surgery. Time Spent: Less than 30 Minutes
[2018-08-01 08:48] VITALS: BP 119/71
[2018-08-01] MEDS ORDERED: ENOXAPARIN SODIUM INJ 40 MG/0.4 ML DISP.SYRIN SUBCUT SCH (10:00)
[2018-08-01] MEDS ORDERED: AMLODIPINE BESYLATE 2.5 MG TABLET PO SCH (10:00)
--- NOTE | 2018-08-01 22:35 | PDOC CONSULTATION ---
Consultation-Blank Consultation: CARDIOLOGY CONSULTATION by Dr. Gabi Pineda on 08/01/2018. The patient seen at 9 AM on 08/01/2018. The patient was also seen last night [07/31/2018] at around 8:30 PM. REASON FOR CONSULTATION: Patient scheduled for rectal cancer surgery, said to have ST segment elevation on EKG on intubation. HISTORY PRESENT ILLNESS: Patient is a 57-year-old female with known history of hypertension, hyperlipidemia, who was admitted for surgery for rectal cancer. As per my discussion with the POULTRY FARM MANAGER after the patient was intubated she had ST segment elevation. Hence the surgery was canceled, and rescheduled for a later date. Although I was told that the patient did not receive any ephedrine, review of the order sheet shows that the patient did get ephedrine. After that the patient was seen to have frequent PVCs, although asymptomatic, and without any hemodynamic compromise. The patient's troponin I is negative. EKG is reviewed by me shows no ST segment elevation in the monitor strips. The patient at present denies any history of chest pain or discomfort. There is no shortness of breath. There is no PND orthopnea. There is no prior history of angina or coronary artery disease. There is no history of palpitations PND of heart failure or syncope. On July 02, the patient underwent a exercise EKG treadmill stress test in Dr. Charles's office. This showed that there was no exercise induced symptoms of angina or shortness of breath, and no EKG evidence of exercise-induced ischemia at a at a workload of 7 M ETS. [Report on chart]. PAST MEDICAL HISTORY: Is positive for hypertension and hyperlipidemia. The patient is a smoker. There is no history of asthma or COPD. There is no history of diabetes mellitus or thyroid disease. There is no history of coronary artery disease. There is no history of angina or NV. She has no history of congestive heart failure. There is no palpitations or cardiac arrhythmia. There is no TIA CVA symptoms. PAST SURGICAL HISTORY: Bilateral tubal ligation. FAMILY HISTORY: Is negative for coronary artery disease or sudden . ALLERGIES: No known allergies. SOCIAL HISTORY: The patient is a smoker. There is no history of EtOH abuse. DISPOSITION: The patient is a full code. Her is a surrogate healthcare decision maker. REVIEW SYSTEMS: Constitutional: Denies fever chills or rigors. She is does have some generalized fatigue. HEAD: Denies headaches or head injury. EYES: No history of amlodipine diplopia. No history of amaurosis fugax. EARS: No history of hearing loss. No history of tinnitus. No history of vertigo. NOSE: No history of hayfever. No history of nosebleeds. No history of nasal polyposis. MOUTH: No history of altered taste sensation. No ulcers in the mouth. THROAT: No history of odynophagia or dysphagia. No history of recurrent sore throats. SKIN: There is no pruritus. There is no yellowish discoloration of the skin. There is no psoriasis or skin cancer. NECK: No neck pain. No lymphadenopathy. No swelling in the neck. No goiter. LUNGS: No history of asthma or COPD. The patient is a smoker. There is no history of sleep apnea. No symptoms of upper or lower respiratory tract infections. No wheezing. No pleuritic chest pain. No history of pulmonary embolism. No history of pleuritic chest pain no history of hemoptysis. CARDIAC: History of hypertension present patient states is well controlled. She states prior to the diagnosis of rectal cancer she had a good exercise tolerance. No history of coronary artery disease. No history of NV or anginal symptoms. No history of congenital heart disease. No history of rheumatic fever. No history of congestive heart fa ilure. No history of cardiac arrhythmias. No history of dizziness or syncope. No history of Raynaud's phenomena. GI: History of rectal cancer. She has received radiation therapy and chemotherapy. Patient is now for surgical surgery of the rectal cancer. No history of fatty food intolerance. No history of altered bowel movements. No tawny GI bleed. No ascites. No history of hepatitis or jaundice. ENDOCRINE: No history of diabetes mellitus or thyroid disease. No history of polydipsia polyuria no history of heat or cold intolerance. No history of hirsutism. No history of excessive sweating. RENAL: No history of chronic kidney disease. No symptoms of UTI. No history of hematuria pyuria or dysuria. MUSCULOSKELETAL: Denies arthritis or collagen vascular disease. METABOLIC: No history of obesity. No history of gout. History of hyperlipidemia. LOAN SERVICING SPECIALIST: No history of TIA CVA. No history of headaches migraines or seizures. PSYCHIATRIC: No history of anxiety or depression. No suicidal ideation. No homicidal ideation. HEMATOLOGICAL: No history of bleeding diathesis. No history of clotting disorders. VASCULAR: No history of calf or buttock claudication. No history of DVT. Physical EXAMINATION: The patient is well-built and well-nourished. At present in no acute distress. Selected Entries 07/31/18 08/01/18 08/01/18 23:58 06:26 08:43 Temperature 98.3 F 98.4 F Temperature Oral Source Pulse Rate 64 63 Respiratory 16 20 Rate Blood Pressure 119/65 Blood Pressure 119/71 [Right] Blood Pressure 83 Mean BP Location Right Arm BP Position Sitting O2 Sat by Pulse 98 100 Oximetry Oxygen Delivery Room Air Room Air Method Pain Level Denies Home Meds Table Lisinopril 20 mg PO QAM 03/20/18 Lovastatin [Altoprev] 20 mg PO QHS 03/20/18 Cholecalciferol (Vitamin D3) [Vitamin D3 5000 unit Capsule] 5,000 unit PO DAILY 07/24/18 Docusate Sodium [Colace] 200 mg PO DAILYP PRN 07/24/18 Garlic 1,000 mg PO DAILY 07/24/18 Ibuprofen [Motrin 800 mg Tablet] 800 mg PO DAILYP PRN 07/24/18 [place]-3S/Dha/Epa/Fish Oil [Fish Oil 1,200 mg Softgel] 1 each PO DAILY 07/24/18 MEDICATION in this hospital 07/31/18 07:16 Bupivacaine HCl/Pf [Sensorcaine-Mpf 0.25% Inj 30 ml Sdv] 30 ml .ROUTE .STK-MED ONE 07/31/18 08:39 Cefazolin 2 gm/D5w RTU [Ancef RTU 2 gm/D5w 50 ml Premix Bag] 2 gm in 50 ml IV .STK-MED 07/31/18 09:58 Fentanyl Citrate/Pf [Sublimaze Inj/Pf 250 Mcg/5 ml Ampule] 250 mcg .ROUTE .STK-MED ONE Midazolam HCl [Versed 2 mg/2 ml Inj] 2 mg .ROUTE .STK-MED ONE Promethazine HCl [Phenergan Inj 25 mg/1 ml Vial] 25 mg .ROUTE .STK-MED ONE 07/31/18 09:59 Acetaminophen [Ofirmev Inj/Pf 1000 mg/100 ml Sdv] 1,000 mg in 100 ml IV .STK-MED Dexamethasone Sod Phosphate [Decadron Inj 4 mg/ml Vial] 4 mg .ROUTE .STK-MED ONE Ephedrine Sulfate [Ephedrine Sulfate Inj 50 mg/ml Ampule] 50 mg .ROUTE .STK- MED ONE Hydromorphone HCl/Pf [Dilaudid Inj/Pf 2 mg/ml Ampule] 2 mg .ROUTE .STK-MED ONE Ondansetron HCl/Pf [Zofran Inj/Pf 4 mg/2 ml Sdv] 4 mg .ROUTE .STK-MED ONE Propofol [Diprivan Inj 200 mg/20 ml Vial] 200 mg IV .STK-MED ONE 07/31/18 11:32 Sugammadex Sodium [Bridion 200 mg/2 ml Sdv] 200 mg IV .STK-MED ONE 07/31/18 12:03 Nitroglycerin [Nitrostat 0.4 mg (1/150 Gr) Tabs 25/Bottle] 25 tab .ROUTE .STK- MED ONE CHEST X-ray: Is negative. EKG shows sinus bradycardia within normal limits. The patient's troponin I is negative. 1. Alleged ST segment elevation as per anesthesia. There are no strips to support this. But the patient did receive ephedrine, which sometimes could in some people because coronary vasospasm. Hence would recommend adding a small dose of Norvasc 2.5 mg p.o. daily to her lisinopril. 2. Hypertension: Well-controlled with current medications. 3. Hyperlipidemia. Continue the patient's statin. 4. Clinically no coronary artery disease, and EKG within normal limits. The patient did have a negative EKG treadmill stress test by Dr. Charles which has been reported as negative for ischemia at a workload of 7 M ETS. 5. Tobacco abuse disorder: Tobacco cessation counseling done. 3 minutes spent on this. 6. Rectal cancer: For surgery Discussed with Dr. Velasquez, and the surgicalist that the patient will be at her low/average cardiac risk for this procedure. Also recommended addition of Norvasc, in case the patient does indeed have coronary artery spasm. [I very much doubt that the patient has coronary spasm] Discussed with the patient and patient's . I have explained to the patie nt that she would be at an average/low cardiac risk for this procedure. As per Dr. Velasquez the patient is being discharged home, and brought back on Friday for surgery. At present we will sign off please call me if my services are needed postoperatively on Friday. Medical decision making is of moderate complexity. 60 minutes spent on this patient with more than 50% of time spent in direct patient care. Her medications have been reviewed. Medications added.
== END 2018-08-01 11:33 | disposition home or self-care (01) ==
LOC: INTOOBSV 08:09 → INOR 08:09 → EDSTATUS 10:30 → 3W 14:26
PROVIDERS: ADMIT Surgery; ATTEND Surgery
DX: C20 Malignant neoplasm of rectum (principal); T88.59XA Other complications of anesthesia, initial encounter; T41.295A Adverse effect of other general anesthetics, initial encounter; Y84.9 Medical procedure, unspecified as the cause of abnormal reaction of the patient, or of later complication, without mention of misadventure at the time of the procedure; Y92.234 Operating room of hospital as the place of occurrence of the external cause; I49.3 Ventricular premature depolarization; E78.00 Pure hypercholesterolemia, unspecified; I10 Essential (primary) hypertension; F17.210 Nicotine dependence, cigarettes, uncomplicated; R53.83 Other fatigue; Z79.899 Other long term (current) drug therapy; Z92.3 Personal history of irradiation; Z95.828 Presence of other vascular implants and grafts; Z92.21 Personal history of antineoplastic chemotherapy; Z79.82 Long term (current) use of aspirin; Z53.09 Procedure and treatment not carried out because of other contraindication; Z98.890 Other specified postprocedural states
CPT/HCPCS: 86900; 86901; 36415 ×3; 82553 ×2; 86850; 82550 ×2; 85025; 85027; 80048 ×2; 84484 ×2; 71046; 93005; 93010; 45395; J2250; J3490 ×2; J1100; J0694; J3010; J1650; J3480 ×2; J2550; J0330; J2405; J7050; J2704; J1741; 840; G0378; G0379; J0131; J0690; J1170

== ENCOUNTER 2018-08-04 08:41 | Inpatient (IN) | payer BC ==
[~2018-08-04 08:41] MED LIST changes: -BUPIVACAINE HCL 0.25 % INJ/PF (2.5 MG/1 ML) 30 ML VIAL ONE; -CEFOXITIN SODIUM 2 GM in DEXTROSE 5%-WATER 100 ML IV PRN; +GLYCOPYRROLATE 1 MG/5 ML SYRINGE ONE; -IBUPROFEN 800 MG in NORMAL SALINE 250 ML IV PRN; -LACTATED RINGERS 1000 ML IV PRN; -LIDOCAINE 0.5% INJ-PF (5 MG/ML) 50 ML SDV SUBCUT PRN; +NEOSTIGMINE METHYLSULFATE 10 MG/10 ML VIAL ONE; +ROCURONIUM BROMIDE INJ 50 MG/5 ML VIAL IV ONE; +SUCCINYLCHOLINE CHLORIDE INJ 200 MG/10 ML VIAL ONE
[2018-08-04] MEDS ORDERED: CEFOXITIN SODIUM 2 GM in DEXTROSE 5%-WATER 100 ML IV PRN (08:46)
[2018-08-04] MEDS ORDERED: IBUPROFEN 800 MG in NORMAL SALINE 250 ML IV PRN (08:46)
[2018-08-04] MEDS ORDERED: CEFAZOLIN 2 GM/D5W RTU 0 GM/0 ML RTUPB IV ONE (08:59)
[2018-08-04] MEDS ORDERED: ALBUTEROL SULFATE 0.083% NEB 2.5 MG/3 ML AMPUL NEB ONE (09:17)
[2018-08-04] MEDS ORDERED: BUPIVACAINE HCL 0.25 % INJ/PF (2.5 MG/1 ML) 30 ML VIAL ONE (09:35)
[2018-08-04] MEDS ORDERED: FENTANYL CITRATE INJ/PF 100 MCG/2 ML AMPUL ONE (10:19)
[2018-08-04] MEDS ORDERED: MIDAZOLAM 2 MG/2 ML INJ ONE (10:19)
[2018-08-04] MEDS ORDERED: PROPOFOL INJ 200 MG/20 ML VIAL IV ONE (10:20)
[2018-08-04] MEDS ORDERED: ACETAMINOPHEN 1,000 MG/100 ML RTUPB IV ONE (10:20)
[2018-08-04] MEDS ORDERED: HYDROMORPHONE HCL INJ/PF 2 MG/ML AMPULE ONE (10:20)
[2018-08-04] MEDS ORDERED: ONDANSETRON HCL INJ/PF 4 MG/2 ML SDV ONE (10:20)
[2018-08-04] MEDS ORDERED: EPHEDRINE SULFATE INJ 50 MG/1 ML AMPULE ONE (10:20)
[2018-08-04] MEDS ORDERED: DEXAMETHASONE SOD PHOSPHATE INJ 4 MG/1 ML VIAL ONE (10:20)
[2018-08-04] MEDS ORDERED: VASOPRESSIN INJ 20 UNIT/1 ML VIAL ONE (10:28)
[2018-08-04] MEDS ORDERED: DIPHENHYDRAMINE HCL 50 MG/ML VIAL IV PRN (12:57)
[2018-08-04] MEDS ORDERED: MORPHINE SULFATE 10 MG/ML INJ IV PRN (12:57)
[2018-08-04] MEDS ORDERED: PROMETHAZINE HCL INJ 25 MG/1 ML VIAL IV PRN ×2 (12:57)
[2018-08-04] MEDS ORDERED: FENTANYL CITRATE INJ/PF 100 MCG/2 ML AMPUL IV PRN ×3 (12:57)
[2018-08-04] MEDS ORDERED: MEPERIDINE HCL/PF INJ 25 MG/1 ML DISP.SYRIN IV PRN (12:57)
[2018-08-04] MEDS ORDERED: ONDANSETRON HCL INJ/PF 4 MG/2 ML SDV IV PRN (19:18)
[2018-08-04] MEDS ORDERED: MORPHINE SULFATE 60 MG/60 ML RTUINJ IV PRN (19:47)
[2018-08-04] MEDS: CEFOXITIN SODIUM 2 GM in DEXTROSE 5%-WATER 100 ML IV SCH (22:09)
[2018-08-04] MEDS: KETOROLAC TROMETHAMINE INJ/PF 30 MG/1 ML SDV IV SCH (22:09)
[2018-08-04] MEDS: FAMOTIDINE INJ/PF 20 MG/2 ML SDV IV SCH (22:09)
[2018-08-04] MEDS: ACETAMINOPHEN 1,000 MG/100 ML RTUPB IV SCH (23:29)
[2018-08-05] MEDS: DEXTROSE 5%-LACTATED RINGERS 1,000 ML IV PRN ×3 (03:31→14:48)
[2018-08-05] MEDS: KETOROLAC TROMETHAMINE INJ/PF 30 MG/1 ML SDV IV SCH ×3 (05:00→20:59)
[2018-08-05] MEDS: CEFOXITIN SODIUM 2 GM in DEXTROSE 5%-WATER 100 ML IV SCH (05:00)
[2018-08-05] MEDS: ACETAMINOPHEN 1,000 MG/100 ML RTUPB IV SCH ×3 (05:00→20:59)
[2018-08-05 05:22] LABS: HEMATOCRIT 33.8 % (36.0-47.0); HEMOGLOBIN 11.8 g/dL (12.0-15.5); MEAN CORPUSCULAR HEMOGLOBIN 31.4 pg (27.0-33.4); MEAN CORPUSCULAR VOLUME 90 fl (80-97); PLATELET COUNT 142 10^3/uL (150-450); RED BLOOD COUNT 3.77 10^6/uL (3.72-5.28); RED CELL DISTRIBUTION WIDTH 12.7 % (11.5-14.0)
[2018-08-05 05:34] LABS: ANION GAP 5 (5-19); BLOOD UREA NITROGEN 14 mg/dL (7-20); CALCIUM 8.8 mg/dL (8.4-10.2); GLUCOSE 121 mg/dL (75-110); POTASSIUM 4.1 mmol/L (3.6-5.0)
[2018-08-05 05:40] LABS: CARBON DIOXIDE 29 mmol/L (22-30); CHLORIDE 103 mmol/L (98-107); SODIUM 136.8 mmol/L (137-145)
[2018-08-05 05:50] LABS: ABSOLUTE LYMPHOCYTES# (MANUAL) 0.5 10^3/uL (0.5-4.7); ABSOLUTE MONOCYTES # (MANUAL) 0.4 10^3/uL (0.1-1.4); ABSOLUTE NEUTROPHILS# (MANUAL) 8.1 10^3/uL (1.7-8.2); BAND NEUTROPHILS % (MANUAL) 1 % (3-5); BASOPHILS % (MANUAL) 0 % (0-2); EOSINOPHILS % (MANUAL) 0 % (0-6); LYMPHOCYTES % (MANUAL) 6 % (13-45); MONOCYTES % (MANUAL) 4 % (3-13); SEGMENTED NEUTROPHILS % (MAN) 89 % (42-78); TOTAL CELLS COUNTED 100
[2018-08-05 05:51] LABS: PLATELET COMMENT DECREASED; RBC MORPHOLOGY COMMENT NORMO-CYTIC/CHROMIC
[2018-08-05] MEDS: FAMOTIDINE INJ/PF 20 MG/2 ML SDV IV SCH ×2 (10:04→20:59)
[2018-08-05] MEDS: ENOXAPARIN SODIUM INJ 40 MG/0.4 ML DISP.SYRIN SUBCUT SCH (10:05)
--- NOTE | 2018-08-05 11:09 | PDOC PROGRESS REPORT ---
Subjective Progress Note for:: 08/05/18 Reason For Visit: RECTAL CANCER Physical Exam Vital Signs: Temp Pulse Resp BP Pulse Ox 98.6 F 83 22 H 132/70 H 99 08/05/18 08:00 08/05/18 10:00 08/05/18 10:00 08/05/18 10:00 08/05/18 10:00 Intake & Output 08/04/18 08/05/18 08/06/18 06:59 06:59 06:59 Intake Total 5257 Output Total 8070 785 Balance 5347 -785 Weight 64 kg 66.9 kg Results Laboratory Results: 08/05/18 05:09 08/05/18 05:09 08/05/18 08/05/18 05:09 05:09 WBC 9.0 RBC 3.77 Hgb 11.8 L Hct 33.8 L MCV 90 MCH 31.4 MCHC 35.0 RDW 12.7 Plt Count 142 L Seg Neutrophils % Not Reportable Lymphocytes % Not Reportable Monocytes % Not Reportable Eosinophils % Not Reportable Basophils % Not Reportable Absolute Neutrophils Not Reportable Absolute Lymphocytes Not Reportable Absolute Monocytes Not Reportable Absolute Eosinophils Not Reportable Absolute Basophils Not Reportable Sodium 136.8 L Potassium 4.1 Chloride 103 Carbon Dioxide 29 Anion Gap 5 BUN 14 Creatinine 0.58 Est GFR ( Amer) > 60 Est GFR (Non-Af Amer) > 60 Glucose 121 H Calcium 8.8 Assessment & Plan - Diagnosis (1) Rectal cancer Is this a current diagnosis for this admission?: Yes - Plan Summary Plan Summary: This is a 57-year-old female status post robot-assisted laparoscopic abdominoperineal resection for rectal cancer. She was also found to have a s mall focus of metastasis on the left anterior liver. This was removed via laparoscopic wedge resection. The patient is doing well today. She reports that her pain is well controlled. Her colostomy is pink. It is not yet productive. Out of bed today. Aggressive pulmonary toilet. Maintain Smith for strict urine output measurement as well as significant pelvic floor trauma. Continue POWER SUPERINTENDENT for now. Continue Toradol and acetaminophen for now. Repeat labs tomorrow.
[2018-08-06] MEDS ORDERED: NORMAL SALINE 500 ML IV ONE (04:00)
[2018-08-06] MEDS: KETOROLAC TROMETHAMINE INJ/PF 30 MG/1 ML SDV IV SCH ×3 (05:06→23:36)
[2018-08-06] MEDS: ACETAMINOPHEN 1,000 MG/100 ML RTUPB IV SCH ×3 (05:06→23:36)
[2018-08-06] MEDS: DEXTROSE 5%-LACTATED RINGERS 1,000 ML IV PRN (05:06)
[2018-08-06 06:51] LABS: ANION GAP 5 (5-19); BLOOD UREA NITROGEN 15 mg/dL (7-20); CARBON DIOXIDE 27 mmol/L (22-30); CHLORIDE 102 mmol/L (98-107); GLUCOSE 97 mg/dL (75-110); POTASSIUM 3.7 mmol/L (3.6-5.0); SODIUM 133.8 mmol/L (137-145)
[2018-08-06 07:41] LABS: ABSOLUTE LYMPHOCYTES (AUTO) 0.2 10^3/uL (0.5-4.7); ABSOLUTE MONOCYTES (AUTO) 0.4 10^3/uL (0.1-1.4); ABSOLUTE NEUT (AUTO) 2.1 10^3/uL (1.7-8.2); BASOPHILS % (AUTO) 0.2 % (0-2); EOSINOPHILS % (AUTO) 1.5 % (0-6); HEMATOCRIT 31.9 % (36.0-47.0); HEMOGLOBIN 11.1 g/dL (12.0-15.5); LYMPHOCYTES % (AUTO) 5.9 % (13-45); MEAN CORPUSCULAR HEMOGLOBIN 31.3 pg (27.0-33.4); MEAN CORPUSCULAR HGB CONC 34.9 g/dL (32.0-36.0); MEAN CORPUSCULAR VOLUME 90 fl (80-97); MONOCYTES % (AUTO) 13.2 % (3-13); PLATELET COUNT 130 10^3/uL (150-450); RED BLOOD COUNT 3.56 10^6/uL (3.72-5.28); RED CELL DISTRIBUTION WIDTH 12.7 % (11.5-14.0); SEGMENTED NEUTROPHILS % (AUTO) 79.2 % (42-78); TOTAL CELLS COUNTED % (AUTO) 100 %
[2018-08-06 07:48] LABS: WHITE BLOOD COUNT 2.7 10^3/uL (4.0-10.5)
[2018-08-06] MEDS: ENOXAPARIN SODIUM INJ 40 MG/0.4 ML DISP.SYRIN SUBCUT SCH (10:27)
[2018-08-06] MEDS: FAMOTIDINE INJ/PF 20 MG/2 ML SDV IV SCH (10:27)
--- NOTE | 2018-08-06 17:22 | PDOC PROGRESS REPORT ---
Subjective Reason For Visit: RECTAL CANCER Physical Exam Vital Signs: Temp Pulse Resp BP Pulse Ox 98.0 F 89 18 136/72 H 99 08/06/18 16:19 08/06/18 16:19 08/06/18 16:19 08/06/18 16:19 08/06/18 16:19 Intake & Output 08/05/18 08/06/18 08/07/18 06:59 06:59 06:59 Intake Total 5257 2515 640 Output Total 2560 2075 525 Balance 2697 440 115 Weight 66.9 kg 67.2 kg Results Laboratory Results: 08/06/18 06:22 08/06/18 06:22 08/06/18 08/06/18 06:22 06:22 WBC 2.7 L D RBC 3.56 L Hgb 11.1 L Hct 31.9 L MCV 90 MCH 31.3 MCHC 34.9 RDW 12.7 Plt Count 130 L Seg Neutrophils % 79.2 H Lymphocytes % 5.9 L Monocytes % 13.2 H Eosinophils % 1.5 Basophils % 0.2 Absolute Neutrophils 2.1 Absolute Lymphocytes 0.2 L Absolute Monocytes 0.4 Absolute Eosinophils 0.0 Absolute Basophils 0.0 Sodium 133.8 L Potassium 3.7 Chloride 102 Carbon Dioxide 27 Anion Gap 5 BUN 15 Creatinine 0.60 Est GFR ( Amer) > 60 Est GFR (Non-Af Amer) > 60 Glucose 97 Calcium 8.0 L Assessment & Plan - Diagnosis (1) Rectal cancer Is this a current diagnosis for this admission?: Yes - Plan Summary Plan Summary: This is a 57-year-old female status post robot-assisted laparoscopic abdominoperineal resection for rectal cancer. She was also found to have a small focus of metastasis on the left anterior liver. This was removed via laparoscopic wedge resection. The patient is doing well today. She reports that her pain is well controlled. Her colostomy is pink and productive. Out of bed today. Aggressive pulmonary toilet. Maintain Smith for strict urine output measurement as well as significant pelvic floor trauma. Continue REFUELER for now. Continue Toradol and acetaminophen. Start PO pain meds. Transfer to floor. Advance diet as tolerated. Repeat labs tomorrow.
[2018-08-06] MEDS ORDERED: TRAMADOL HCL 50 MG TABLET PO PRN (17:39)
[2018-08-06] MEDS: FAMOTIDINE 20 MG TABLET PO SCH (23:37)
[2018-08-07] MEDS ORDERED: ACETAMINOPHEN 1,000 MG/100 ML RTUPB IV ONE (05:58)
[2018-08-07] MEDS: KETOROLAC TROMETHAMINE INJ/PF 30 MG/1 ML SDV IV SCH ×3 (06:50→21:24)
[2018-08-07] MEDS: ACETAMINOPHEN 1,000 MG/100 ML RTUPB IV SCH ×2 (06:51→15:18)
[2018-08-07 07:36] LABS: ABSOLUTE EOSINOPHILS # (AUTO) 0.1 10^3/uL (0.0-0.6); ABSOLUTE LYMPHOCYTES (AUTO) 0.3 10^3/uL (0.5-4.7); ABSOLUTE MONOCYTES (AUTO) 0.5 10^3/uL (0.1-1.4); BASOPHILS % (AUTO) 0.3 % (0-2); EOSINOPHILS % (AUTO) 3.6 % (0-6); HEMOGLOBIN 10.6 g/dL (12.0-15.5); LYMPHOCYTES % (AUTO) 6.5 % (13-45); MEAN CORPUSCULAR HEMOGLOBIN 31.2 pg (27.0-33.4); MEAN CORPUSCULAR HGB CONC 35.3 g/dL (32.0-36.0); MEAN CORPUSCULAR VOLUME 88 fl (80-97); MONOCYTES % (AUTO) 12.4 % (3-13); PLATELET COUNT 113 10^3/uL (150-450); RED CELL DISTRIBUTION WIDTH 12.5 % (11.5-14.0); SEGMENTED NEUTROPHILS % (AUTO) 77.2 % (42-78); TOTAL CELLS COUNTED % (AUTO) 100 %; WHITE BLOOD COUNT 3.9 10^3/uL (4.0-10.5)
[2018-08-07 07:55] LABS: ANION GAP 5 (5-19); BLOOD UREA NITROGEN 16 mg/dL (7-20); CARBON DIOXIDE 28 mmol/L (22-30); CHLORIDE 101 mmol/L (98-107); GLUCOSE 82 mg/dL (75-110); POTASSIUM 3.2 mmol/L (3.6-5.0); SODIUM 134.1 mmol/L (137-145)
[2018-08-07] MEDS: FAMOTIDINE 20 MG TABLET PO SCH ×2 (08:59→21:24)
[2018-08-07] MEDS: ENOXAPARIN SODIUM INJ 40 MG/0.4 ML DISP.SYRIN SUBCUT SCH (09:01)
[2018-08-07] MEDS ORDERED: MORPHINE SULFATE 10 MG/ML INJ IV PRN (15:40)
--- NOTE | 2018-08-07 17:11 | PDOC PROGRESS REPORT ---
Subjective Reason For Visit: RECTAL CANCER Physical Exam Vital Signs: Temp Pulse Resp BP Pulse Ox 98.2 F 71 18 126/74 H 100 08/07/18 12:40 08/07/18 14:00 08/07/18 12:40 08/07/18 12:40 08/07/18 12:40 Intake & Output 08/06/18 08/07/18 08/08/18 06:59 06:59 06:59 Intake Total 2515 2715 366 Output Total 2075 1420 350 Balance 440 1295 16 Weight 67.2 kg 68.4 kg Results Laboratory Results: 08/07/18 06:48 08/07/18 06:48 08/07/18 08/07/18 06:48 06:48 WBC 3.9 L RBC 3.40 L Hgb 10.6 L Hct 30.0 L MCV 88 MCH 31.2 MCHC 35.3 RDW 12.5 Plt Count 113 L Seg Neutrophils % 77.2 Lymphocytes % 6.5 L Monocytes % 12.4 Eosinophils % 3.6 Basophils % 0.3 Absolute Neutrophils 3.0 Absolute Lymphocytes 0.3 L Absolute Monocytes 0.5 Absolute Eosinophils 0.1 Absolute Basophils 0.0 Sodium 134.1 L Potassium 3.2 L Chloride 101 Carbon Dioxide 28 Anion Gap 5 BUN 16 Creatinine 0.59 Est GFR ( Amer) > 60 Est GFR (Non-Af Amer) > 60 Glucose 82 Calcium 8.0 L Assessment & Plan - Diagnosis (1) Rectal cancer Is this a current diagnosis for this admission?: Yes - Plan Summary Plan Summary: This is a 57-year-old female status post robot-assisted laparoscopic abdominoperineal resection for rectal cancer. She was also found to have a small focus of metastasis on the left anterior liver. This was removed via laparoscopic wedge resection. The patient is doing well today. She reports that her pain is controlled. Her colostomy is pink and productive. her incisions are without erythema or drainage. Out of bed today. Aggressive pulmonary toilet. D/c Smith today. discontinue TEXTURE ARTIST. Continue Toradol and PO pain meds. Tolerated soft diet. Hypokalemia --> replace with oral potassium. Repeat labs tomorrow.
[2018-08-07] MEDS: POTASSIUM CHLORIDE 10 MEQ CAPSULE.ER PO SCH (21:25)
[2018-08-08 08:14] LABS: ABSOLUTE EOSINOPHILS # (AUTO) 0.2 10^3/uL (0.0-0.6); ABSOLUTE LYMPHOCYTES (AUTO) 0.3 10^3/uL (0.5-4.7); ABSOLUTE MONOCYTES (AUTO) 0.3 10^3/uL (0.1-1.4); ABSOLUTE NEUT (AUTO) 4.4 10^3/uL (1.7-8.2); BASOPHILS % (AUTO) 0.2 % (0-2); EOSINOPHILS % (AUTO) 3.9 % (0-6); HEMATOCRIT 31.3 % (36.0-47.0); HEMOGLOBIN 11.1 g/dL (12.0-15.5); LYMPHOCYTES % (AUTO) 5.1 % (13-45); MEAN CORPUSCULAR HEMOGLOBIN 31.5 pg (27.0-33.4); MEAN CORPUSCULAR HGB CONC 35.5 g/dL (32.0-36.0); MEAN CORPUSCULAR VOLUME 89 fl (80-97); MONOCYTES % (AUTO) 6.3 % (3-13); PLATELET COUNT 158 10^3/uL (150-450); RED BLOOD COUNT 3.53 10^6/uL (3.72-5.28); RED CELL DISTRIBUTION WIDTH 12.7 % (11.5-14.0); SEGMENTED NEUTROPHILS % (AUTO) 84.5 % (42-78); TOTAL CELLS COUNTED % (AUTO) 100 %; WHITE BLOOD COUNT 5.2 10^3/uL (4.0-10.5)
[2018-08-08] MEDS: KETOROLAC TROMETHAMINE INJ/PF 30 MG/1 ML SDV IV SCH ×3 (08:30→21:05)
[2018-08-08 08:37] LABS: ANION GAP 5 (5-19); BLOOD UREA NITROGEN 11 mg/dL (7-20); CALCIUM 8.2 mg/dL (8.4-10.2); CARBON DIOXIDE 30 mmol/L (22-30); CHLORIDE 102 mmol/L (98-107); GLUCOSE 99 mg/dL (75-110); POTASSIUM 3.4 mmol/L (3.6-5.0); SODIUM 136.8 mmol/L (137-145)
[2018-08-08] MEDS ORDERED: POTASSIUM CHLORIDE 10 MEQ CAPSULE.ER PO SCH (10:18)
[2018-08-08] MEDS: POTASSIUM CHLORIDE 10 MEQ CAPSULE.ER PO SCH ×2 (10:38→18:15)
[2018-08-08] MEDS: FAMOTIDINE 20 MG TABLET PO SCH ×2 (10:39→21:05)
[2018-08-08] MEDS: ENOXAPARIN SODIUM INJ 40 MG/0.4 ML DISP.SYRIN SUBCUT SCH (10:43)
[2018-08-08] MEDS: NYSTATIN 500000 UNIT/5 ML UDCUP PO SCH ×3 (14:39→23:42)
[2018-08-08] MEDS ORDERED: LORAZEPAM 1 MG TABLET PO ONE (18:15)
--- NOTE | 2018-08-08 19:33 | PDOC PROGRESS REPORT ---
Subjective Reason For Visit: RECTAL CANCER Physical Exam Vital Signs: Temp Pulse Resp BP Pulse Ox 99.2 F 74 17 143/90 H 99 08/08/18 08:02 08/08/18 08:02 08/08/18 08:02 08/08/18 08:02 08/08/18 08:02 Intake & Output 08/07/18 08/08/18 08/09/18 06:59 06:59 06:59 Intake Total 2715 666 Output Total 1420 1295 Balance 1295 -629 Weight 68.4 kg Results Laboratory Results: 08/08/18 07:19 08/08/18 07:19 08/08/18 08/08/18 07:19 07:19 WBC 5.2 RBC 3.53 L Hgb 11.1 L Hct 31.3 L MCV 89 MCH 31.5 MCHC 35.5 RDW 12.7 Plt Count 158 Seg Neutrophils % 84.5 H Lymphocytes % 5.1 L Monocytes % 6.3 Eosinophils % 3.9 Basophils % 0.2 Absolute Neutrophils 4.4 Absolute Lymphocytes 0.3 L Absolute Monocytes 0.3 Absolute Eosinophils 0.2 Absolute Basophils 0.0 Sodium 136.8 L Potassium 3.4 L Chloride 102 Carbon Dioxide 30 Anion Gap 5 BUN 11 Creatinine 0.58 Est GFR ( Amer) > 60 Est GFR (Non-Af Amer) > 60 Glucose 99 Calcium 8.2 L Assessment & Plan - Diagnosis (1) Rectal cancer Is this a current diagnosis for this admission?: Yes - Plan Summary Plan Summary: This is a 57-year-old female status post robot-assisted laparoscopic abdominoperineal resection for rectal cancer. She was also found to have a small focus of metastasis on the left anterior liver. This was removed via laparoscopic wedge resection. The patient is doing well today. She reports that her pain is controlled. Her colostomy is pink and productive. Her incisions are without erythema or drainage. Out of bed today. Aggressive pulmonary toilet. Continue current pain medication regimen. Tolerated regular diet. Hypokalemia --> replace with oral potassium. Repeat labs tomorrow.
--- NOTE | 2018-08-08 19:55 | Operative Report ---
Nonrecallable Operative Report DATE OF SURGERY: 08/04/18 PREOPERATIVE DIAGNOSIS: Rectal cancer, advanced POSTOPERATIVE DIAGNOSIS: 1. Rectal cancer. 2. Evidence of small metastasis on the left lobe of the liver, anterior position. OPERATION: 1. Robot-assisted laparoscopic abdominoperineal resection. 2. Laparoscopic wedge resection of a portion of the left lobe of the liver. SURGEON: ELKIN CALHOUN ANESTHESIA: GA TISSUE REMOVED OR ALTERED: 1. Sigmoid colon and rectum. 2. Wedge resection of the left lobe of the liver. COMPLICATIONS: Evidence of a small focus of metastatic disease on the left lobe of the liver. This was removed and wedge resection fashion. ESTIMATED BLOOD LOSS: 75 cc. PROCEDURE: Drains/implants: 1. 15 Armenian round Blaise drain in the pelvis. 2. Surgicel at the raw edge of the left lobe of the liver. Procedure in detail: After informed consent was obtained, the patient was brought into the operating room and laid in the supine position. The area of the abdomen and perineum were prepped and draped in a normal sterile fashion. A supraumbilical incision was created with a 15 blade scalpel. Dissection was then carried through the subcutaneous tissue using sharp and blunt means. The linea alba fascia was incised sharply, and the abdomen was entered sharply. The balloon trocar was inserted, and pneumoperitoneum was achieved. The abdomen was then surveyed with the laparoscopic/robotic camera. The right lobe of the liver appeared smooth without obvious defect or mass. The left lobe of the liver was then inspected. There is a small, less than 1 cm focus of what appeared to be metastatic disease. This was biopsied and sent for frozen section. It was confirmed to be adenocarcinoma, likely metastatic. Once this was confirmed, the area would have to be resected (this would be done after the APR was completed). Robotic trochars were then placed in the left lateral abdomen, left lower quadrant, and right lower quadrant. An intellectual property legal assistant port was placed in the right upper quadrant. The robot was then brought over the patient and docked appropriately. Dissection was then begun at the mesentery of the descending colon/Sigmoid junction. I then assumed my position at the surgeon's console. An incision was created in the mesentery anterior to the sacral promontory. Dissection was then carried out in a medial to lateral fashion. The mesentery of the sigmoid colon was lifted anteriorly. The left iliac artery and left ureter were then identified. Once this was completed the dissection was carried cranially. The superior rectal artery was identified and was divided using the vessel sealing device. Once this was completed the dissection was carried inferiorly into the pelvis. The total mesorectal excision was performed by retracting the rectum anteriorly and dividing the plane between the sacral fascia and the mesorectum. This was done using sharp dissection and electrocautery. The posterior dissection was taken from the sacral promontory all the way down to the levators. Next, attention was turned to the anterior dissection. The ureter was again identified on the left and right. The anterior peritoneal reflection was taken down using a mixture of electrocautery and sharp dissection. Great care was taken to separate the rectum from the vagina anteriorly. The dissection was carried inferiorly until the levators were identified. Once this was completed the lateral stalks were taken down using electrocautery. This was done with great care to avoid injury to the ureters bilaterally. Once the rectum was completely freed, attention was turned to the perineal dissection. I assumed a position between the legs, at the perineum. An incision was created lateral to the sphincter complex in an elliptical fashion extending from the perineal body to the gluteal cleft. This incision was created with a 15 blade scalpel. Bovie electrocautery was then used to perform an extra sphincteric dissection. The dissection was carried posteriorly to the tip of the sacrum. The levators were divided and a finger was inserted into the pelvis. Dissection was carried laterally over top of my finger, dividing the levators. This was done on the left and right sides. Next, the rectum was pulled out the defect, a nd the anterior dissection was completed. Great care was taken not to injure the posterior vagina. Once the specimen was freed, it was removed from the patient, passed off the field, and sent to pathology. Next, the levators were reapproximated using multiple 0 Vicryl sutures in [id number] fashion. The subcutaneous tissue was closed using 2-0 Vicryl suture in simple interrupted fashion. This was done after a 15 Armenian round Blaise drain was inserted through the levators, and into the pelvis. The skin was closed using skin almaz. I then returned to the surgeon's console. The pelvic peritoneum was then closed using 2-0 V lock suture in simple running fashion. The abdomen was copiously irrigated and suctioned. The robot was then undocked, and I scrubbed back into the case. Attention was then turned to the liver. Using traditional laparoscopic instruments the small metastasis was identified on the liver. It was elevated and the LigaSure device was used to wedge out the area of metastasis. Hemostasis was achieved using electrocautery and Surgicel. The Surgicel was packed onto the liver and left in situ. Once this was completed, attention was turned to creation of the colostomy. A left lower quadrant incision was created. Dissection was carried through the subcutaneous tissue using blunt dissection. A cruciate incision was created within the rectus muscle midway between the ASIS and the umbilicus. The distal descending colon was then pulled out through the colostomy site. The bowel appeared healthy without necrosis or injury. The right lower quadrant 12 mm site and supraumbilical 12 mm site were closed using 0 Vicryl suture in [id number] fashion. The overlying skin was closed using skin almaz. Attention was then turned to the colostomy. The colostomy was matured in Marcela fashion. 3-0 Vicryl pop-off sutures were used to secure the colostomy to the skin circumferentially. Once this was completed, the colostomy appliance was placed. Dressings were fashioned, and the procedure was concluded. All sponge, instrument, and needle counts were correct x2. Condition: Fair.
[2018-08-08] MEDS ORDERED: PREDNISONE 20 MG TABLET PO ONE (22:30)
[2018-08-08] MEDS ORDERED: VALACYCLOVIR HCL 500 MG TABLET PO ONE (23:30)
[2018-08-09] MEDS: NYSTATIN 500000 UNIT/5 ML UDCUP PO SCH ×4 (06:24→22:29)
[2018-08-09] MEDS: KETOROLAC TROMETHAMINE INJ/PF 30 MG/1 ML SDV IV SCH ×2 (06:24→14:00)
[2018-08-09] MEDS: POTASSIUM CHLORIDE 10 MEQ CAPSULE.ER PO SCH (06:24)
[2018-08-09 06:46] LABS: HEMATOCRIT 31.8 % (36.0-47.0); HEMOGLOBIN 11.2 g/dL (12.0-15.5); MEAN CORPUSCULAR HEMOGLOBIN 31.5 pg (27.0-33.4); MEAN CORPUSCULAR HGB CONC 35.3 g/dL (32.0-36.0); MEAN CORPUSCULAR VOLUME 89 fl (80-97); PLATELET COUNT 154 10^3/uL (150-450); RED BLOOD COUNT 3.55 10^6/uL (3.72-5.28); RED CELL DISTRIBUTION WIDTH 12.7 % (11.5-14.0)
[2018-08-09 07:04] LABS: ANION GAP 5 (5-19); BLOOD UREA NITROGEN 9 mg/dL (7-20); CALCIUM 8.3 mg/dL (8.4-10.2); CARBON DIOXIDE 29 mmol/L (22-30); CHLORIDE 102 mmol/L (98-107); GLUCOSE 102 mg/dL (75-110); POTASSIUM 3.4 mmol/L (3.6-5.0); SODIUM 135.8 mmol/L (137-145)
[2018-08-09 07:16] LABS: ABSOLUTE LYMPHOCYTES# (MANUAL) 0.1 10^3/uL (0.5-4.7); ABSOLUTE MONOCYTES # (MANUAL) 0.3 10^3/uL (0.1-1.4); ABSOLUTE NEUTROPHILS# (MANUAL) 6.4 10^3/uL (1.7-8.2); BASOPHILS % (MANUAL) 0 % (0-2); EOSINOPHILS % (MANUAL) 2 % (0-6); LYMPHOCYTES % (MANUAL) 2 % (13-45); MONOCYTES % (MANUAL) 4 % (3-13); SEGMENTED NEUTROPHILS % (MAN) 92 % (42-78); TOTAL CELLS COUNTED 100
[2018-08-09 07:18] LABS: PLATELET COMMENT ADEQUATE; TOXIC GRANULATION SLIGHT
[2018-08-09] MEDS: ENOXAPARIN SODIUM INJ 40 MG/0.4 ML DISP.SYRIN SUBCUT SCH (10:22)
[2018-08-09] MEDS: PREDNISONE 20 MG TABLET PO SCH (10:25)
[2018-08-09] MEDS: FAMOTIDINE 20 MG TABLET PO SCH ×2 (10:25→22:30)
[2018-08-09] MEDS: VALACYCLOVIR HCL 500 MG TABLET PO SCH ×2 (10:25→22:30)
--- NOTE | 2018-08-09 14:22 | PDOC PROGRESS REPORT ---
Subjective Progress Note for:: 08/09/18 Reason For Visit: RECTAL CANCER Physical Exam Vital Signs: Temp Pulse Resp BP Pulse Ox 99.4 F 91 18 134/76 H 100 08/09/18 11:19 08/09/18 11:19 08/09/18 11:19 08/09/18 11:19 08/09/18 11:19 Intake & Output 08/08/18 08/09/18 08/10/18 06:59 06:59 06:59 Intake Total 666 700 Output Total 1295 1250 Balance -629 -550 Weight 64.3 kg Results Laboratory Results: 08/09/18 06:26 08/09/18 06:26 08/09/18 08/09/18 06:26 06:26 WBC 7.0 RBC 3.55 L Hgb 11.2 L Hct 31.8 L MCV 89 MCH 31.5 MCHC 35.3 RDW 12.7 Plt Count 154 Seg Neutrophils % Not Reportable Lymphocytes % Not Reportable Monocytes % Not Reportable Eosinophils % Not Reportable Basophils % Not Reportable Absolute Neutrophils Not Reportable Absolute Lymphocytes Not Reportable Absolute Monocytes Not Reportable Absolute Eosinophils Not Reportable Absolute Basophils Not Reportable Sodium 135.8 L Potassium 3.4 L Chloride 102 Carbon Dioxide 29 Anion Gap 5 BUN 9 Creatinine 0.52 Est GFR ( Amer) > 60 Est GFR (Non-Af Amer) > 60 Glucose 102 Calcium 8.3 L Assessment & Plan - Diagnosis (1) Rectal cancer Is this a current diagnosis for this admission?: Yes - Plan Summary Plan Summary: This is a 57-year-old female status post robot-assisted laparoscopic abdominoperineal resection for rectal cancer. She was also found to have a sm all focus of metastasis on the left anterior liver. This was removed via laparoscopic wedge resection. The patient is doing well today. She reports that her pain is controlled. Her colostomy is pink and productive. Her abdominal incisions are without erythema or drainage. Her rectal incision has bruising in the vacinity, that I believe is related to pressure. Out of bed today. Try to avoid pressure to the perineal incision. Aggressive pulmonary toilet. Continue current pain medication regimen. Tolerated regular diet. Hypokalemia --> replace again with oral potassium. Repeat labs tomorrow.
[2018-08-10] MEDS: FAMOTIDINE 20 MG TABLET PO SCH ×2 (11:15→22:23)
[2018-08-10] MEDS: VALACYCLOVIR HCL 500 MG TABLET PO SCH ×2 (11:17→22:23)
[2018-08-10] MEDS: ENOXAPARIN SODIUM INJ 40 MG/0.4 ML DISP.SYRIN SUBCUT SCH (11:17)
[2018-08-10] MEDS: NYSTATIN 500000 UNIT/5 ML UDCUP PO SCH ×4 (11:17→22:23)
[2018-08-10] MEDS: PREDNISONE 20 MG TABLET PO SCH (11:17)
--- NOTE | 2018-08-10 13:08 | PDOC PROGRESS REPORT ---
Subjective Reason For Visit: RECTAL CANCER Physical Exam Vital Signs: Temp Pulse Resp BP Pulse Ox 97.9 F 72 20 144/93 H 100 08/10/18 11:28 08/10/18 11:28 08/10/18 11:28 08/10/18 11:28 08/10/18 11:28 Intake & Output 08/09/18 08/10/18 08/11/18 06:59 06:59 06:59 Intake Total 700 418 236 Output Total 1250 3385 300 Balance -550 -2967 -64 Weight 64.3 kg 64 kg Results Laboratory Results: 08/09/18 06:26 08/09/18 06:26 Assessment & Plan - Diagnosis (1) Rectal cancer Is this a current diagnosis for this admission?: Yes - Plan Summary Plan Summary: This is a 57-year-old female status post robot-assisted laparoscopic abdominoperineal resection for rectal cancer. She was also found to have a small focus of metastasis on the left anterior liver. This was removed via laparoscopic wedge resection. The patient is doing well today. She reports that her pain is controlled. Her colostomy is pink and productive. Her abdominal incisions are without erythema or drainage. Her rectal incision has bruising in the vicinity, that I believe is related to pressure. It is stable from yesterday. No erythema or sign of infection. Out of bed today. Try to avoid pressure to the perineal incision. Aggressive pulmonary toilet. Continue current pain medication regimen. Tolerated regular diet. Continue treatment for Moncada's palsy. Likely D/c home tomorrow.
[2018-08-11] MEDS: ENOXAPARIN SODIUM INJ 40 MG/0.4 ML DISP.SYRIN SUBCUT SCH (09:08)
[2018-08-11] MEDS: FAMOTIDINE 20 MG TABLET PO SCH (09:08)
[2018-08-11] MEDS: PREDNISONE 20 MG TABLET PO SCH (09:08)
[2018-08-11] MEDS: VALACYCLOVIR HCL 500 MG TABLET PO SCH (09:08)
[2018-08-11] MEDS: NYSTATIN 500000 UNIT/5 ML UDCUP PO SCH (09:08)
--- NOTE | 2018-08-11 10:11 | PDOC DISCHARGE SUMMARY ---
General - Admit/Disc Date/PCP Admission Date/Primary Care Provider: 08/04/18 08:41 CORAL VERMA MD Discharge Date: 08/11/18 - Discharge Diagnosis (1) Rectal cancer Is this a current diagnosis for this admission?: Yes - Additional Information Resuscitation Status: Full Code Discharge Diet: As Tolerated Discharge Activity: No Lifting Over 10 Pounds Home Medications: Lisinopril 20 mg PO QAM 03/20/18 Lovastatin [Altoprev] 20 mg PO QHS 03/20/18 Cholecalciferol (Vitamin D3) [Vitamin D3 5000 unit Capsule] 5,000 unit PO DAILY 07/24/18 Docusate Sodium [Colace] 200 mg PO DAILYP PRN 07/24/18 Ibuprofen [Motrin 800 mg Tablet] 800 mg PO DAILYP PRN 07/24/18 Maria Stein-3S/Dha/Epa/Fish Oil [Fish Oil 1,200 mg Softgel] 1 each PO DAILY 07/24/18 Amlodipine Besylate [Norvasc 2.5 mg Tablet] 2.5 mg PO DAILY 08/04/18 Garlic 1,000 mg PO DAILY 08/04/18 History of Present Illness History of Present Illness: RAY BURGESS is a 57 year old female with rectal cancer. She was admitted for abdominal perineal resection. She was found to have a small focus of metastasis on the liver, requiring segmental wedge resection of the liver. The patient tolerated the operation well and was taken to the floor in stable condition. See the operative note for details regarding her procedure. Hospital Course Hospital Course: The patient was taken to the floor in stable condition. She is on postop day 0 she was tolerating a full liquid diet. Within several days, the patient's colostomy began producing air and stool. The patient's diet was advanced. Over the coming days, she began ambulating, tolerating a diet, and her pain was controlled with oral pain medications. By 08/11/2018 her DONTAE drain was minimally productive, and was removed. At this time it was felt that she had reached maximal hospital benefit, and was fit for discharge. Physical Exam Vital Signs: Temp Pulse Resp BP Pulse Ox 98.2 F 59 L 18 143/78 H 100 08/11/18 07:34 08/11/18 07:34 08/11/18 07:34 08/11/18 07:34 08/11/18 07:34 Intake & Output 08/10/18 08/11/18 08/12/18 06:59 06:59 06:59 Intake Total 418 236 Output Total 3387 7206 Balance -9804 -1295 Weight 64 kg 63.4 kg Results Laboratory Results: 08/09/18 06:26 08/09/18 06:26 Qualifiers - * PATIENT BEING DISCHARGED WITH ANY OF THE FOLLOWING DIAGNOSIS: No Plan Discharge Plan: Discharge home. Diet as tolerated. Activity: No lifting greater than 10 pounds x 6 weeks. Follow-up with me in 7-10 days. Ultram 50 mg p.o. every 6 hours as needed for pain. Okay to shower. No tub baths or swimming pools times 2 weeks. Moncada's palsy treatment: Prednisone 60 mg p.o. daily times 6 days. Prednisone taper for the following 6 days, per written instructions. Acyclovir 500 mg p.o. 5 times per day, x8 more days. Time Spent: Less than 30 Minutes
[2018-08-11 11:09] LABS: ANION GAP 5 (5-19); BLOOD UREA NITROGEN 10 mg/dL (7-20); CALCIUM 8.8 mg/dL (8.4-10.2); CARBON DIOXIDE 32 mmol/L (22-30); CHLORIDE 99 mmol/L (98-107); GLUCOSE 105 mg/dL (75-110); POTASSIUM 3.2 mmol/L (3.6-5.0); SODIUM 135.7 mmol/L (137-145)
[2018-08-11 14:19] VITALS: BP 131/76
== END 2018-08-11 15:04 | disposition home health service (06) | DRG 330 ==
LOC: INOR 08:41 → EDSTATUS 11:00 → ICU 21:13 → 4S 08-06 16:44
PROVIDERS: ADMIT Surgery; ATTEND Surgery
PROC: 0D1M4Z4 Bypass Descending Colon to Cutaneous, Percutaneous Endoscopic Approach (ICD-10-PCS; principal; 2018-08-05)
PROC: 0FB24ZX Excision of Left Lobe Liver, Percutaneous Endoscopic Approach, Diagnostic (ICD-10-PCS; 2018-08-05)
PROC: 0DBP4ZZ Excision of Rectum, Percutaneous Endoscopic Approach (ICD-10-PCS; 2018-08-05)
PROC: 8E0W4CZ Robotic Assisted Procedure of Trunk Region, Percutaneous Endoscopic Approach (ICD-10-PCS; 2018-08-05)
DX: C20 Malignant neoplasm of rectum (principal); C78.7 Secondary malignant neoplasm of liver and intrahepatic bile duct; G51.0 Bell's palsy; E87.6 Hypokalemia; I10 Essential (primary) hypertension; E78.00 Pure hypercholesterolemia, unspecified; F17.210 Nicotine dependence, cigarettes, uncomplicated
CPT/HCPCS: 36415; 790; 80048; 85025; 86850; 86900; 86901; 88305; 88307; 88309; 88313; 88341; 88342; 94799; J0131; J0330; J0690; J0694; J1100; J1170; J1650; J1741; J1885; J2250; J2270; J2405; J2704; J3010; J3490; J7040; J7050; J7512; S0028

== ENCOUNTER → 2018-09-28 | Outpatient (CLI) | payer BC, OTHER ==
--- NOTE | 2018-09-28 14:46 | RADIOLOGY REPORT (SQ) ---
EXAM DESCRIPTION: MRI HEAD COMBO COMPLETED DATE/TIME: 09/28/2018 2:04 pm REASON FOR STUDY: C20 MALIGNANT NEOPLASM OF RECTUM/H53.8 OTHER VISUAL DISTURBANCES C20 MALIGNANT NE OPLASM OF RECTUM H53.8 OTHER VISUAL DISTURBANCES COMPARISON: 07/28/2018. TECHNIQUE: Multiplanar imaging includes noncontrasted T1, T2, FLAIR, diffusion with ADC map and post gadolinium contrast T1 sequences. Images stored on PACS. CONTRAST TYPE AND DOSE: 10 mL Dotarem. RENAL FUNCTION: GFR > 60. LIMITATIONS: None. FINDINGS: ANATOMY: There is extensive enhancing soft tissue which has totally replaced and destroyed the clivus and fills both sides of the cavernous sinus and extends into the floor of the left middle cranial fossa. Approximate AP measurement is 3.0 cm, transverse measurement 5.0 cm, and craniocauda l measurement 3.0 cm. The mass also extends anteriorly into the posterior aspect of the nasopharynx. The flow void in the cavernous left internal carotid artery is not present and this is concerning f or extrinsic compression of the vessel with occlusion. On postcontrast imaging there is contrast opa cification of the left middle cerebral artery and left anterior cerebral artery and therefore some fl ow may be present and there is likely flow via the communicating arteries of the [place] of [place]. CSF SPACES: Normal in size and contour. No hemorrhage. CEREBRUM: Sulci and gyri normal in size and contour. Normal white matter signal on FLAIR imaging. No evidence of hemorrhage, mass, or extraaxial fluid collection. No abnormal enhancement post contrast. POSTERIOR FOSSA: No signal alteration. No hemorrhage. No edema, masses, or mass effect. Internal agus tory canals and cerebellopontine angles normal. Fluid signal in the left mastoid air cells. No enhan cing lesions. No abnormal enhancement post contrast. DIFFUSION IMAGING: Negative for acute or subacute infarction. ORBITS: No masses. Globes normal. PARANASAL SINUSES: No fluid levels. Mucosa normal. OTHER: No other significant finding. IMPRESSION: 1. EXTENSIVE ENHANCING SOFT TISSUE AT THE BASE OF THE SKULL WHICH HAS COMPLETELY REPLACED AND DESTROY ED THE CLIVUS WITH ENHANCING SOFT TISSUE FILLING THE CAVERNOUS SINUSES AND EXTENDING INTO THE LEFT DC DDLE CRANIAL FOSSA. THIS IS LIKELY DUE TO AGGRESSIVE METASTASIS WHICH HAS DEVELOPED SINCE JULY 18. THERE IS EXTRINSIC COMPRESSION AND POSSIBLE OCCLUSION OF THE CAVERNOUS PORTION OF THE LEFT INTE RNAL CAROTID ARTERY. 2. FLUID SIGNAL IN THE LEFT MASTOID AIR CELLS CONSISTENT WITH MASTOID EFFUSION. 3. NO EVIDENCE OF METASTATIC INVOLVEMENT IN THE BRAIN ITSELF. EVIDENCE OF ACUTE STROKE: NO. TECHNICAL DOCUMENTATION: JOB ID: [id number] [employer]- All Rights Reserved Reading location - IP/workstation name: [email or web address]
== END ==
LOC: RAD 13:14
PROVIDERS: ATTEND Physician Assistant Medical
DX: C20 Malignant neoplasm of rectum (principal); H53.8 Other visual disturbances
CPT/HCPCS: 70553; A9576

== ENCOUNTER → 2018-10-14 | Outpatient (CLI) | payer BC, OTHER ==
--- NOTE | 2018-10-14 13:18 | RADIOLOGY REPORT (SQ) ---
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 S elected spectral images acquired with additional compression and augmentation maneuvers. The contrala teral common femoral vein and saphenofemoral junction were also imaged. Images stored on PACS. LIMITATIONS: None. FINDINGS: COMMON FEMORAL: Normal phasicity, compression and augmentation. No visualized echogenic ma terial on white scale. No defects on color images. FEMORAL: Normal compression and augmentation. No visualized echogenic material on white scale. No defe cts on color images. POPLITEAL: Normal compression, augmentation. No visualized echogenic material on white scale. No defec ts on color images. CALF VESSELS: Normal compression, augmentation. No visualized echogenic material on white scale. No de fects on color images. GSV and SSV: Normal compression, augmentation. No visualized echogenic material on white scale. No def ects on color images. ANY DEEP VENOUS INSUFFICIENCY: Not evaluated. ANY EVIDENCE OF POPLITEAL CYST: No. OTHER: No other significant finding. CONTRALATERAL COMMON FEMORAL VEIN AND SAPHENOFEMORAL JUNCTION: Normal phasicity, compression and augmentation. No visualized echogenic material on white scale. No de fects on color images. IMPRESSION: NO EVIDENCE DVT OR SVT IN THE RIGHT LEG. TECHNICAL DOCUMENTATION: JOB ID: [id number] [employer]- All Rights Reserved Reading location - IP/workstation name: [email or web address]
== END ==
LOC: SP 14:45
PROVIDERS: ATTEND Radiology Radiation Oncology
DX: M79.89 Other specified soft tissue disorders (principal); C77.5 Secondary and unspecified malignant neoplasm of intrapelvic lymph nodes; C79.31 Secondary malignant neoplasm of brain
CPT/HCPCS: 93971

== ENCOUNTER 2018-10-16 12:27 | Emergency (ER) | payer SELFPAY ==
[2018-10-16] MEDS ORDERED: TETRACAINE HCL 0.5% OPH SOLN 4 ML OU ONE (12:43)
--- NOTE | 2018-10-16 12:46 | ER Document Report ---
ED Medical Screen (RME) - General Chief Complaint: Eye Problem Stated Complaint: LEFT EYE IRRITATION, SWELLING Time Seen by Provider: 10/16/18 12:34 Primary Care Provider: BHARGAVI JOSHUA MD [Primary Care Provider] - Follow up as needed Mode of Arrival: Wheelchair Information source: Patient, Relative TRAVEL OUTSIDE OF THE [place] IN LAST 30 DAYS: No - HPI Patient complains to provider of: LEFT EYE PAIN, PAIN IN THE PORT Notes: 10/16/18 12:44 Patient here with at the bedside. Patient is a history of rectal cancer with metastasis with tumor in the left maxillary sinus area. 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 She is been wearing eye patches over the left eye. She is unable to completely close the eye. Since Friday the eye has become swollen, red, painful. She is also complaining of pain in her right upper chest port. Exam No distress. Left eye with chemosis, clouding of the cornea, injection. No drainage. Slurred speech noted. Tachycardia. Plan CBC, CMP, coags, blood culture, chest x-ray, EKG due to tachycardia. Will allow provider to see the patient in the back to determine if and what advanced imaging is needed at this time. An initial examination was made on the patient as part of the triage process, and it was determined a more comprehensive evaluation was necessary. Initial labs were ordered and patient was transferred to another provider in the ED who assumed care and finished evaluation and plan. - Related Data Allergies/Adverse Reactions: No Known Allergies Allergy (Verified 08/04/18 10:34) Past Medical History - Social History Frequency of alcohol use: None Drug Abuse: None - Past Medical History Cardiac Medical History: Reports: Hx Hypercholesterolemia, Hx Hypertension Denies: Hx Atrial Fibrillation, Hx Congestive Heart Failure, Hx Coronary Ar kristi Disease, Hx Heart Attack, Hx Peripheral Vascular Disease, Hx Heart Murmur Pulmonary Medical History: Neurological Medical History: Renal/ Medical History: Denies: Hx End Stage Renal Disease, Hx Kidney Stones, Hx Peritoneal Dialysis GI Medical History: Denies: Hx Crohn's Disease, Hx Gastroesophageal Reflux Disease, Hx Hiatal Hernia, Hx Irritable Bowel, Hx Liver Failure, Hx Pancreatitis, Hx Ulcer Musculoskeltal Medical History: Psychiatric Medical History: Past Surgical History: Reports: Hx Bowel Surgery, Hx Tubal Ligation. Denies: Hx Appendectomy, Hx Section, Hx Cholecystectomy, Hx Colostomy, Hx Coronary Artery Bypass Graft, Hx Gastric Bypass Surgery, Hx Herniorrhaphy, Hx Hysterectomy, Hx Mastectomy, Hx Pacemaker, Hx Tonsillectomy - Immunizations Hx Diphtheria, Pertussis, Tetanus Vaccination: No History of Influenza Vaccine for 03/2017 - 08/2017 Season: No Physical Exam - Vital signs Vitals: Temp Pulse Resp BP Pulse Ox 97.9 F 139 H 16 104/69 98 10/16/18 12:34 10/16/18 12:34 10/16/18 12:34 10/16/18 12:34 10/16/18 12:34 Course - Vital Signs Vital signs: Temp Pulse Resp BP Pulse Ox 97.9 F 139 H 16 104/69 98 10/16/18 12:34 10/16/18 12:34 10/16/18 12:34 10/16/18 12:34 10/16/18 12:34 Doctor's Discharge - Discharge Referrals: BHARGAVI JOSHUA MD [Primary Care Provider] - Follow up as needed
[2018-10-16 13:22] LABS: HEMATOCRIT 35.4 % (36.0-47.0); HEMOGLOBIN 11.6 g/dL (12.0-15.5); MEAN CORPUSCULAR HEMOGLOBIN 27.8 pg (27.0-33.4); MEAN CORPUSCULAR HGB CONC 32.7 g/dL (32.0-36.0); MEAN CORPUSCULAR VOLUME 85 fl (80-97); PLATELET COUNT 260 10^3/uL (150-450); RED BLOOD COUNT 4.17 10^6/uL (3.72-5.28); RED CELL DISTRIBUTION WIDTH 16.6 % (11.5-14.0); WHITE BLOOD COUNT 14.6 10^3/uL (4.0-10.5)
[2018-10-16 13:30] LABS: INTERNATIONAL RATION (INR) 1.09; PROTHROMBIN TIME 14.6 SEC (11.4-15.4)
[2018-10-16 13:31] LABS: PARTIAL THROMBOPLASTIN TIME 33.3 SEC (23.5-35.8)
[2018-10-16 13:38] LABS: ALANINE AMINOTRANSFERASE 146 U/L (9-52); ALBUMIN 3.3 g/dL (3.5-5.0); ALKALINE PHOSPHATASE 481 U/L (38-126); ANION GAP 11 (5-19); ASPARTATE AMINO TRANSFERASE 97 U/L (14-36); BILIRUBIN,DIRECT 0.7 mg/dL (0.0-0.4); BILIRUBIN,TOTAL 1.1 mg/dL (0.2-1.3); BLOOD UREA NITROGEN 45 mg/dL (7-20); CALCIUM 9.8 mg/dL (8.4-10.2); CARBON DIOXIDE 26 mmol/L (22-30); CHLORIDE 95 mmol/L (98-107); GLUCOSE 132 mg/dL (75-110); POTASSIUM 5.4 mmol/L (3.6-5.0); SODIUM 132.3 mmol/L (137-145); TOTAL PROTEIN 6.9 g/dL (6.3-8.2)
--- NOTE | 2018-10-16 13:42 | RADIOLOGY REPORT (SQ) ---
EXAM DESCRIPTION: CHEST SINGLE VIEW COMPLETED DATE/TIME: 10/16/2018 1:32 pm REASON FOR STUDY: PAIN AROUND PORT COMPARISON: None. EXAM PARAMETERS: NUMBER OF VIEWS: One view. TECHNIQUE: Single frontal radiographic view of the chest acquired. RADIATION DOSE: NA LIMITATIONS: None. FINDINGS: LUNGS AND PLEURA: No acute infiltrates or effusions. . MEDIASTINUM AND HILAR STRUCTURES: No masses. Contour normal. HEART AND VASCULAR STRUCTURES: The heart and pulmonary vasculature are normal. BONES: No acute findings. HARDWARE: Port-A-Cath in place with tip overlying SVC. OTHER: No other significant finding. IMPRESSION: NO ACUTE DISEASE. TECHNICAL DOCUMENTATION: JOB ID: [id number] 2010 [employer]- All Rights Reserved Reading location - IP/workstation name: [email or web address]
[2018-10-16 13:53] LABS: ABSOLUTE MONOCYTES # (MANUAL) 0.3 10^3/uL (0.1-1.4); ABSOLUTE NEUTROPHILS# (MANUAL) 14.3 10^3/uL (1.7-8.2); BAND NEUTROPHILS % (MANUAL) 2 % (3-5); BASOPHILS % (MANUAL) 0 % (0-2); EOSINOPHILS % (MANUAL) 0 % (0-6); LYMPHOCYTES % (MANUAL) 0 % (13-45); MONOCYTES % (MANUAL) 2 % (3-13); SEGMENTED NEUTROPHILS % (MAN) 96 % (42-78); TOTAL CELLS COUNTED 100
[2018-10-16 14:10] LABS: TOXIC GRANULATION SLIGHT; TOXIC VACUOLATION PRESENT
[2018-10-16 14:11] LABS: ANISOCYTOSIS 1+; OVALOCYTES 1+
[2018-10-16 14:12] LABS: PLATELET COMMENT ADEQUATE
--- NOTE | 2018-10-16 14:54 | ER Document Report ---
ED General - General Chief Complaint: Eye Problem Stated Complaint: LEFT EYE IRRITATION, SWELLING Time Seen by Provider: 10/16/18 12:34 Primary Care Provider: BHARGAVI JOSHUA MD [Primary Care Provider] - Follow up as needed Mode of Arrival: Wheelchair Notes: 57-year-old female with history of rectal cancer with metastatic cysts to the left maxillary sinus area where she has a tumor producing cranial nerve deficits presents to the emergency department with a swollen, red, painful left eye. She has a history of vision loss in the left eye dating back to July 2018 when she was diagnosed with the metastatic disease. She has been wearing patches over the left eye. reports he saw a redness since Friday, there is some purulent discharge coming from it, and she has been unable to close it completely. She denies fevers, chills, nausea, vomiting, diarrhea. She does have a baseline left facial droop. She has a wound VAC in place over her rectum. - Related Data Allergies/Adverse Reactions: No Known Allergies Allergy (Verified 08/04/18 10:34) Past Medical History - General Information source: Patient, Relative - Social History Smoking Status: Former Smoker Frequency of alcohol use: None Drug Abuse: None Family History: None Patient has suicidal ideation: No Patient has homicidal ideation: No - Past Medical History Cardiac Medical History: Reports: Hx Hypercholesterolemia, Hx Hypertension Denies: Hx Atrial Fibrillation, Hx Congestive Heart Failure, Hx Coronary Artery Disease, Hx Heart Attack, Hx Peripheral Vascular Disease, Hx Heart Murmur Pulmonary Medical History: Neurological Medical History: Renal/ Medical History: Denies: Hx End Stage Renal Disease, Hx Kidney Stones, Hx Peritoneal Dialysis GI Medical History: Denies: Hx Crohn's Disease, Hx Gastroesophageal Reflux Disease, Hx Hiatal Hernia, Hx Irritable Bowel, Hx Liver Failure, Hx Pancreatitis, Hx Ulcer Musculoskeletal Medical History: Psychiatric Medical History: Past Surgical History: Reports: Hx Bowel Surgery, Hx Tubal Ligation. Denies: Hx Appendectomy, Hx Section, Hx Cholecystectomy, Hx Colostomy, Hx Coronary Artery Bypass Graft, Hx Gastric Bypass Surgery, Hx Herniorrhaphy, Hx Hyst erectomy, Hx Mastectomy, Hx Pacemaker, Hx Tonsillectomy - Immunizations Hx Diphtheria, Pertussis, Tetanus Vaccination: No Review of Systems - Review of Systems Constitutional: See HPI EENT: See HPI Cardiovascular: See HPI Respiratory: See HPI Gastrointestinal: See HPI Genitourinary: See HPI Neurological/Psychological: See HPI Physical Exam - Vital signs Vitals: Temp Pulse Resp BP Pulse Ox 97.9 F 139 H 16 104/69 98 10/16/18 12:34 10/16/18 12:34 10/16/18 12:34 10/16/18 12:34 10/16/18 12:34 - Notes Notes: PHYSICAL EXAMINATION: Reviewed vital signs and charting by RN GENERAL: Alert, difficulty to understand due to baseline speech difficulties from her tumor, mild distress. HEAD: Normocephalic, atraumatic. EYES: Right pupil round and reactive to light, left eye unable to close scleral injection, purulent discharge, unable to close eye completely ENT: Oral mucosa dry, tongue midline. NECK: Full range of motion. Supple. Trachea midline. LUNGS: Clear to auscultation bilaterally, no wheezes, rales, or rhonchi. No respiratory distress. HEART: Tachycardia cardia. No murmur ABDOMEN: soft, non-tender. Non-distended. Bowel sounds present. no McBurney's point tenderness, no Guo sign. EXTREMITIES: Moves all 4 extremities spontaneously. No edema, No cyanosis. Normal distal neurovascular exam BACK: No CVAT NEUROLOGIC: Oriented and appropriate. Normal speech. PSYCH: Normal affect, normal mood. SKIN: Warm, dry, normal turgor. No rashes or lesions noted. Course - Re-evaluation Re-evalutation: 10/16/18 14:51 Overall cachectic, floor seen stain of left eye but patient is unable to sit up on the edge of the bed for slit-lamp exam. I then performed a Aguilar lamp exam where there appears to be a 3 mm x 4 mm oblong corneal abrasion versus ulceration. There is also purulent discharge coming from the eye. Zuleika with Dr. De Anda he recommended I call ophthalmology even though they are not on-call for a recommendation on this patient. 10/16/18 14:56 10/16/18 15:[address] Olvera, oculoplastic surgeon who is on-call for ophthalmology at [facility], he recommended that we use erythromycin ointment and tape the eye shut. He wants to see her in his office Friday morning at 8 AM he provided phone information. 05/03/19 18:56 Patient received normal saline 1 L and she was tachycardia in the 120s to 130s. She responded to it and is currently tachycardic in the 110s. I encouraged her to get a second liter of fluids but she refused. She wishes to be discharged home at this time I discussed this with Dr. De Anda, supervising physician is aware. I encouraged her to increase p.o. fluids as she is dehydrated. Patient does have metastatic rectal cancer to the brain and her wishes her to be at home at this time. Everyone is in agreement with plan. - Vital Signs Vital signs: Temp Pulse Resp BP Pulse Ox 97.9 F 139 H 24 H 86/62 L 97 10/16/18 12:34 10/16/18 12:34 10/16/18 15:45 10/16/18 15:45 10/16/18 15:45 - Laboratory Result Diagrams: 10/16/18 12:50 10/16/18 12:50 Laboratory results interpreted by me: 10/16/18 10/16/18 12:50 12:50 WBC 14.6 H Hgb 11.6 L Hct 35.4 L RDW 16.6 H Seg Neuts % (Manual) 96 H Band Neutrophils % 2 L Lymphocytes % (Manual) 0 L Monocytes % (Manual) 2 L Abs Neuts (Manual) 14.3 H Abs Lymphs (Manual) 0.0 L Sodium 132.3 L Potassium 5.4 H Chloride 95 L BUN 45 H Est GFR (Non-Af Amer) 54 L Glucose 132 H Direct Bilirubin 0.7 H AST 97 H ALT 146 H Alkaline Phosphatase 481 H Albumin 3.3 L Discharge - Discharge Clinical Impression: Corneal abrasion, left Qualifiers: Encounter type: initial encounter Qualified Code(s): S05.02XA - Injury of conjunctiva and corneal abrasion without foreign body, left eye, initial encoun ter Condition: Good Disposition: HOME, SELF-CARE Additional Instructions: You are seen in the emergency department this afternoon for corneal abrasion. It is a rather significant injury so it is very important that you follow-up with Dr. Olvera, relaster, first thing Friday morning. His recommendation and standing order is to use the erythromycin ointment every 2 hours while you are awake and to keep your eye taped shut to make sure that it stays lubricated. Also, you are mildly dehydrated which explains her elevated heart rate. Please do your best to increase your fluids. If you develop any worsening symptoms in your eye, develop severe chest pain, acute shortness of breath, or you have any other concerning symptoms please do not hesitate to return to the emergency department. Dr. Olvera, relaster Please call him Friday morning at 8 AM to arrange close follow-up Referrals: BHARGAVI JOSHUA MD [Primary Care Provider] - Follow up as needed
[2018-10-16] MEDS ORDERED: NORMAL SALINE 1000 ML 1,000 ML IV ONE ×2 (15:47→17:46)
--- NOTE | 2018-10-16 18:51 | EKG REPORT ---
SEVERITY:- OTHERWISE NORMAL ECG - SINUS TACHYCARDIA : Confirmed by: Sunni Charles 16-Oct-2018 18:50:38
[2018-10-16] MEDS ORDERED: ERYTHROMYCIN 0.5% OPH OINT 1 GM UNIT DOSE OS ONE (18:55)
[2018-10-16 19:19] VITALS: BP 91/69
== END 2018-10-16 19:33 | disposition home or self-care (01) ==
LOC: ER 12:27
DX: S05.02XA Injury of conjunctiva and corneal abrasion without foreign body, left eye, initial encounter (principal); X58.XXXA Exposure to other specified factors, initial encounter; C78.39 Secondary malignant neoplasm of other respiratory organs; R29.810 Facial weakness; E78.00 Pure hypercholesterolemia, unspecified; I10 Essential (primary) hypertension; Z98.51 Tubal ligation status; Z85.048 Personal history of other malignant neoplasm of rectum, rectosigmoid junction, and anus
CPT/HCPCS: 93005; 99284; 96360; 36415; 87040; 87070; 87205; 85025; 85610; 85730; 87077; 80053; 87186; 71045; 93010; J7030; J3490

== ENCOUNTER 2018-10-17 08:58 | Inpatient (IN) | payer SELFPAY ==
--- NOTE | 2018-10-17 10:43 | ER Document Report ---
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 She was seen here yesterday and blood cultures were positive in 1 of 2 bottles. On arrival she is hypotensive and tachycardic. Lab work from yesterday showed evidence of dehydration and she does appear clinically dehydrated. She denies fevers or chills, shortness of br eath or chest pain, nausea or vomiting, diarrhea. She denies any dizziness or lightheadedness, complains of weakness. TRAVEL OUTSIDE OF THE [place] IN LAST 30 DAYS: No - Related Data Allergies/Adverse Reactions: No Known Allergies Allergy (Verified 10/17/18 09:00) Past Medical History - Social History Smoking Status: Former Smoker Chew tobacco use (# tins/day): No Frequency of alcohol use: None Drug Abuse: None Family History: None Patient has suicidal ideation: No Patient has homicidal ideation: No - Past Medical History Cardiac Medical History: Reports: Hx Hypercholesterolemia, Hx Hypertension Denies: Hx Atrial Fibrillation, Hx Congestive Heart Failure, Hx Coronary Artery Disease, Hx Heart Attack, Hx Peripheral Vascular Disease, Hx Heart Murmur Pulmonary Medical History: Neurological Medical History: Renal/ Medical History: Denies: Hx End Stage Renal Disease, Hx Kidney Stones, Hx Peritoneal Dialysis GI Medical History: Denies: Hx Crohn's Disease, Hx Gastroesophageal Reflux Disease, Hx Hiatal Hernia, Hx Irritable Bowel, Hx Liver Failure, Hx Pancreatitis, Hx Ulcer Musculoskeletal Medical History: Psychiatric Medical History: Past Surgical History: Reports: Hx Bowel Surgery, Hx Tubal Ligation. Denies: Hx Appendectomy, Hx Section, Hx Cholecystectomy, Hx Colostomy, Hx Coronary Artery Bypass Graft, Hx Gastric Bypass Surgery, Hx Herniorrhaphy, Hx Hysterectomy, Hx Mastectomy, Hx Pacemaker, Hx Tonsillectomy - Immunizations Hx Diphtheria, Pertussis, Tetanus Vaccination: No Review of Systems - Review of Systems Constitutional: See HPI EENT: See HPI Cardiovascular: See HPI Respiratory: See HPI Gastrointestinal: See HPI Genitourinary: See HPI Female Genitourinary: No symptoms reported Musculoskeletal: No symptoms reported Skin: No symptoms reported Hematologic/Lymphatic: No symptoms reported Neurological/Psychological: See HPI Physical Exam - Vital signs Vitals: Pulse Ox 91 L 10/17/18 03:56 - Notes Notes: PHYSICAL EXAMINATION: Reviewed vital signs and charting by RN GENERAL: Alert, interacts well. cachetic HEAD: Normocephalic, atraumatic. EYES: Pupils equal and round. Extraocular movements intact. ENT: Oral mucosa dry NECK: Full range of motion. Supple. Trachea midline. LUNGS: Clear to auscultation bilaterally, no wheezes, rales, or rhonchi. No respiratory distress. HEART: Tachycardia. No murmur ABDOMEN: soft, non-tender. Non-distended. Bowel sounds present. no McBurney's point tenderness, no Guo sign. EXTREMITIES: Moves all 4 extremities spontaneously. No edema, No cyanosis. Normal distal neurovascular exam NEUROLOGIC: Oriented and appropriate. Normal speech. PSYCH: Normal affect, normal mood. SKIN: Warm, dry, normal turgor. No rashes or lesions noted. Course - Re-evaluation Re-evalutation: 10/17/18 10:42 Patient called back for abnormal labs after encounter yesterday. Blood cultures were positive in 1/2 tubes, gram-positive cocci in pairs. Unclear at this point if it is a contaminant so plan is to redraw cultures, get some basic labs, and pursue aggressive IV rehydration. 10/17/18 13:37 Patient received 2 L of normal saline. Her creatinine is 1.79 up from 1.05 yesterday. She has an SASHA. She is clearly dehydrated. Her blood pressure continues to be systolic 80s to 90s over 50s to 60s. I reggie a lactate and it was 3.6. Called the hospitalist who accepted the patient for full admission to telemetry - Vital Signs Vital signs: Temp Pulse Resp BP Pulse Ox 98.8 F 138 H 25 H 79/55 L 100 10/17/18 11:05 10/17/18 09:05 10/17/18 12:20 10/17/18 12:20 10/17/18 12:00 - Laboratory Result Diagrams: 10/17/18 10:38 10/17/18 10:47 Laboratory results interpreted by me: 10/17/18 10/17/18 10/17/18 09:40 10:38 10:47 WBC 14.0 H Hgb 10.6 L Hct 32.4 L RDW 16.5 H Seg Neuts % (Manual) 94 H Lymphocytes % (Manual) 1 L Monocytes % (Manual) 0 L Abs Neuts (Manual) 13.9 H Abs Lymphs (Manual) 0.1 L Abs Monocytes (Manual) 0.0 L Sodium 130.3 L Potassium 5.8 H Chloride 96 L BUN 56 H Creatinine 1.79 H Est GFR ( Amer) 36 L Est GFR (Non-Af Amer) 29 L Glucose 146 H Lactic Acid 3.6 H Direct Bilirubin 0.9 H AST 118 H ALT 152 H Alkaline Phosphatase 411 H Total Protein 5.4 L Albumin 2.6 L Discharge - Discharge Clinical Impression: Acute kidney injury Hypotension Qualifiers: Hypotension type: hypotension due to hypovolemia Qualified Code(s): I95.89 - Other hypotension; E86.1 - Hypovolemia Corneal abrasion Qualifiers: Encounter type: subsequent encounter Laterality: left Qualified Code(s): S05.02XD - Injury of conjunctiva and corneal abrasion without foreign body, left eye, subsequent encounter Condition: Stable Disposition: ADMITTED INPATIENT Admitting Provider: Jani (Hospitalist) Unit Admitted: Telemetry Referrals: BHARGAVI JOSHUA MD [Primary Care Provider] - Follow up as needed
[2018-10-17 11:00] LABS: ALANINE AMINOTRANSFERASE 152 U/L (9-52); ALBUMIN 2.6 g/dL (3.5-5.0); ALKALINE PHOSPHATASE 411 U/L (38-126); ANION GAP 11 (5-19); ASPARTATE AMINO TRANSFERASE 118 U/L (14-36); BILIRUBIN,DIRECT 0.9 mg/dL (0.0-0.4); BILIRUBIN,TOTAL 1.2 mg/dL (0.2-1.3); BLOOD UREA NITROGEN 56 mg/dL (7-20); CALCIUM 9.2 mg/dL (8.4-10.2); CARBON DIOXIDE 23 mmol/L (22-30); CHLORIDE 96 mmol/L (98-107); GLUCOSE 146 mg/dL (75-110); POTASSIUM 5.8 mmol/L (3.6-5.0); SODIUM 130.3 mmol/L (137-145); TOTAL PROTEIN 5.4 g/dL (6.3-8.2)
[2018-10-17 11:09] LABS: HEMATOCRIT 32.4 % (36.0-47.0); HEMOGLOBIN 10.6 g/dL (12.0-15.5); MEAN CORPUSCULAR HEMOGLOBIN 27.9 pg (27.0-33.4); MEAN CORPUSCULAR HGB CONC 32.8 g/dL (32.0-36.0); MEAN CORPUSCULAR VOLUME 85 fl (80-97); PLATELET COUNT 226 10^3/uL (150-450); RED BLOOD COUNT 3.82 10^6/uL (3.72-5.28); RED CELL DISTRIBUTION WIDTH 16.5 % (11.5-14.0)
[2018-10-17] MEDS: NORMAL SALINE 1000 ML 1,000 ML IV PRN ×3 (11:18→18:28)
[2018-10-17 11:59] LABS: ABSOLUTE LYMPHOCYTES# (MANUAL) 0.1 10^3/uL (0.5-4.7); ABSOLUTE NEUTROPHILS# (MANUAL) 13.9 10^3/uL (1.7-8.2); BAND NEUTROPHILS % (MANUAL) 5 % (3-5); BASOPHILS % (MANUAL) 0 % (0-2); EOSINOPHILS % (MANUAL) 0 % (0-6); LYMPHOCYTES % (MANUAL) 1 % (13-45); MONOCYTES % (MANUAL) 0 % (3-13); SEGMENTED NEUTROPHILS % (MAN) 94 % (42-78); TOTAL CELLS COUNTED 100
[2018-10-17 12:00] LABS: ANISOCYTOSIS 1+; OVALOCYTES 1+; PLATELET CLUMPS PRESENT; PLATELET COMMENT ADEQUATE; POIKILOCYTOSIS 1+
[2018-10-17] MEDS ORDERED: ACETAMINOPHEN 650 MG SUPP.RECT PR PRN (14:43)
[2018-10-17] MEDS ORDERED: ACETAMINOPHEN 325 MG TABLET PO PRN (14:43)
[2018-10-17] MEDS ORDERED: ONDANSETRON HCL INJ/PF 4 MG/2 ML SDV IV PRN (14:43)
[2018-10-17] MEDS ORDERED: LEVALBUTEROL HCL NEB 0.63 MG/3 ML AMPUL NEB PRN (14:43)
[2018-10-17] MEDS ORDERED: (PENDING PHARMACY ID) (Megestrol Acetate [Megestrol Acetate] 40 MG) PO SCH (14:45)
[2018-10-17] MEDS ORDERED: (PENDING PHARMACY ID) (Fluconazole [Diflucan] 200 MG) PO SCH (14:45)
[2018-10-17] MEDS ORDERED: PIPERACILLIN/TAZOBACTAM 3.375 GM VIAL IV SCH (15:00)
--- NOTE | 2018-10-17 15:11 | PDOC H&P ---
History of Present Illness Admission Date/PCP: 10/17/18 13:43 BHARGAVI JOSHUA MD Patient complains of: Blood cultures came back positive History of Present Illness: RAY BURGESS is a 57 year old female active cancer status post removal of rectum with rectal pouch, metastasis to the brain, radiation therapy 3 days ago, came to the emergency room yesterday with corneal abrasion. The ER physician talked to the junior software developer recommendation is erythromycin eyedrops and eye closure at that time patient was advised to stay in the hospital because she looks dehydrated even after giving 1 L of fluid but the patient chooses to go home and she was called this morning to come back to the emergency room because blood cultures are positive for gram-positive cocci. is given the history that patient is not eating well for the last 2 weeks. Because of the medicine the brain causing the weakness of the left side of the face difficulty in swallowing only thinks she able to take his liquids. And is on megestrol for appetite but patient has difficulty in eating solid food. Thinking about PEG tube placement. Past Medical History Cardiac Medical History: Reports: Hyperlipidema, Hypertension Denies: Atrial Fibrillation, Congestive Heart Failure, Coronary Artery Disease, Myocardial Infarction, Peripheral Vascular Disease, Heart Murmur Pulmonary Medical History: Neurological Medical History: Renal/ Medical History: Denies: End Stage Renal Disease GI Medical History: Denies: Crohn's Disease, Gastroesophageal Reflux Disease, Hiatal Hernia Musculoskeltal Medical History: Psychiatric Medical History: Hematology: Past Surgical History Past Surgical History: Reports: Tubal Ligation Denies: Appendectomy, Section, Cholecystectomy, Colostomy, Coronary Artery Bypass Graft, Gastric Bypass Surgery, Herniorrhaphy, Hysterectomy, Mastectomy, Pacemaker, Tonsillectomy Social History Smoking Status: Former Smoker Frequency of Alcohol Use: Rare Hx Recreational Drug Use: No Hx Prescription Drug Abuse: No - Advance Directive Resuscitation Status: Full Code Family History Family History: None Parental Family History Reviewed: Yes - Family history of strokes cancers. Children Family History Reviewed: Yes Sibling(s) Family History Reviewed.: Yes Medication/Allergy Home Medications: Aspirin [Ecotrin] 81 mg PO DAILY 10/17/18 Dexamethasone [Decadron 4 Mg Tablet] 8 mg PO BID 10/17/18 Fluconazole [Diflucan] 200 mg PO DAILY 10/17/18 Garlic 1 each PO DAILY 10/17/18 Lisinopril 20 mg PO DAILY 10/17/18 Lovastatin [Altoprev] 20 mg PO QHS 10/17/18 Megestrol Acetate 40 mg PO DAILY 10/17/18 Tramadol HCl [Ultram] 50 mg PO Q6HP PRN 10/17/18 Allergies/Adverse Reactions: No Known Allergies Allergy (Verified 10/17/18 09:00) Review of Systems Constitutional: ABSENT: chills, fatigue, fever(s), headache(s), weakness Eyes: ABSENT: visual disturbances Ears: ABSENT: hearing changes Nose, Mouth, and Throat: ABSENT: sore throat Cardiovascular: ABSENT: chest pain, dyspnea on exertion, edema, orthropnea, palpitations Gastrointestinal: PRESENT: other - Patient has a decreased appetite for last 2 weeks able to take only liquids. Neurological: PRESENT: weakness, other - According to the EMS has to come and pick her up because patient is weak unable to get out of the bed. Physical Exam Vital Signs: Temp Pulse Resp BP Pulse Ox 98.8 F 138 H 25 H 79/55 L 100 10/17/18 11:05 10/17/18 09:05 10/17/18 12:20 10/17/18 12:20 10/17/18 12:00 Intake & Output 10/16/18 10/17/18 10/18/18 06:59 06:59 06:59 Intake Total 193 Balance 193 Weight 73 kg General appearance: PRESENT: mild distress, thin Head exam: PRESENT: atraumatic Eye exam: PRESENT: PERRLA, other - Eye corneal abrasion. Teeth exam: PRESENT: poor dentation Neck exam: ABSENT: carotid bruit, JVD, lymphadenopathy, thyromegaly Respiratory exam: PRESENT: decreased breath sounds Cardiovascular exam: PRESENT: systolic murmur, tachycardia GI/Abdominal exam: PRESENT: other - She had a rectal pump and colostomy bag. Gentrourinary exam: PRESENT: other Neurological exam: PRESENT: alert, awake, oriented to person, oriented to place, oriented to time, oriented to situation, CN II-XII grossly intact. ABSENT: motor sensory deficit Results Laboratory Results: 10/17/18 10:38 10/17/18 10:47 10/17/18 10/17/18 10/17/18 09:40 10:38 10:47 WBC 14.0 H RBC 3.82 Hgb 10.6 L Hct 32.4 L MCV 85 MCH 27.9 MCHC 32.8 RDW 16.5 H Plt Count 226 Seg Neutrophils % Not Reportable Lymphocytes % Not Reportable Monocytes % Not Reportable Eosinophils % Not Reportable Basophils % Not Reportable Absolute Neutrophils Not Reportable Absolute Lymphocytes Not Reportable Absolute Monocytes Not Reportable Absolute Eosinophils Not Reportable Absolute Basophils Not Reportable Sodium 130.3 L Potassium 5.8 H Chloride 96 L Carbon Dioxide 23 Anion Gap 11 BUN 56 H Creatinine 1.79 H Est GFR ( Amer) 36 L Est GFR (Non-Af Amer) 29 L Glucose 146 H Lactic Acid 3.6 H Calcium 9.2 Total Bilirubin 1.2 AST 118 H ALT 152 H Alkaline Phosphatase 411 H Total Protein 5.4 L Albumin 2.6 L Assessment and Plan - Diagnosis (1) Acute kidney injury Is this a current diagnosis for this admission?: Yes Plan: 10/17/2018-patient's creatinine today is 0.79. Her baseline creatinine is around 0.8. Acute kidney injury most likely secondary to poor oral intake. And to put her in telemetry she is a full code. To start on IV fluids normal saline at 125 cc/h to watch for the fluid overload. GI prophylaxis DVT prophylaxis requ ested. Consultation with Dr. Velasquez and also with Dr. Winkler is requested. Start on IV morphine 2 mg every 4 hours as needed for pain. to start On liquid diet. (2) Corneal abrasion Qualifiers: Encounter type: subsequent encounter Laterality: left Qualified Code(s): S05.02XD - Injury of conjunctiva and corneal abrasion without foreign body, left eye, subsequent encounter Is this a current diagnosis for this admission?: Yes Plan: 10/17/2018-patient has a left eye corneal abrasion. As per the ophthalmology recommendations she is going to be on erythromycin eye ointment and eye closure. (3) Hypotension Qualifiers: Hypotension type: hypotension due to hypovolemia Qualified Code(s): I95.89 - Other hypotension; E86.1 - Hypovolemia Is this a current diagnosis for this admission?: Yes Plan: 10/17/2018-patient blood pressure is 100/60. Hypotension is most likely secondary to poor oral intake. Started on normal saline at 125 cc/h. Dietary consult is going to be requested. (4) Rectal cancer Is this a current diagnosis for this admission?: No Plan: 10/17/2018-patient has history of rectal cancer status post rectum removal. She has a rectal pump. She is supposed to see Dr. Velasquez on Friday but she is in the hospital today. Consultation with Dr. Velasquez was requested. She has colostomy bag. (5) Tobacco abuse Is this a current diagnosis for this admission?: No Plan: 10/17/2018-patient has history of tobacco use. Used to smoke 1 pack every day for more than 30 years. She quit smoking in July as per the . (6) Hyperkalemia Is this a current diagnosis for this admission?: Yes Plan: 10/17/2018-patient serum potassium is 5.8 hyperkalemic. To give Kayexalate 30 g twice a day and to recheck potassium level on daily basis. (7) Hyponatremia Is this a current diagnosis for this admission?: Yes Plan: 10/17/2018-patient serum sodium level is 130.3 hyponatremia most likely secondary to poor oral intake. (8) Tachycardia Is this a current diagnosis for this admission?: Yes Plan: 10/17/2018-patient's heart rate is around 120s. Tachycardia most likely secondary to dehydration may be underlying sepsis. (9) SIRS (systemic inflammatory response syndrome) Is this a current diagnosis for this admission?: Yes Plan: 09/2018-patient is tachycardic and hypotensive, blood cultures positive for gram- positive cocci with acute kidney injury and lactic acid level is 3.6. Missed the criteria for Sirs. Blood cultures pending. Started on IV Zosyn 3.37 g every 6 hours. - Time Time Spent with patient: 25-34 minutes Medications reviewed and adjusted accordingly: Yes Anticipated discharge: Home
[2018-10-17] MEDS ORDERED: SODIUM POLYSTYRENE SULFONATE 15 GM/60 ML PO SCH (15:15)
--- NOTE | 2018-10-17 15:24 | RADIOLOGY REPORT (SQ) ---
EXAM DESCRIPTION: CHEST SINGLE VIEW COMPLETED DATE/TIME: 10/17/2018 3:13 pm REASON FOR STUDY: shortness of breath COMPARISON: 10/16/2018 TECHNIQUE: Single frontal radiographic view of the chest acquired. NUMBER OF VIEWS: One view. LIMITATIONS: None. FINDINGS: LUNGS AND PLEURA: No pneumothorax. No consolidation or pleural effusion. MEDIASTINUM AND HILAR STRUCTURES: Stable. HEART AND VASCULAR STRUCTURES: Stable. BONES: No acute findings. HARDWARE: Right chest port. OTHER: No other significant finding. IMPRESSION: NO ACUTE FINDINGS. TECHNICAL DOCUMENTATION: JOB ID: [id number] [id number] 2010 [employer]- All Rights Reserved Reading location - IP/workstation name: [email or web address]
[2018-10-17 16:14] LABS: CREATINE KINASE MB 0.45 ng/mL (<4.55); TROPONIN I 0.027 ng/mL
[2018-10-17 17:11] LABS: CREATINE KINASE MB 0.44 ng/mL (<4.55)
[2018-10-17 17:14] LABS: TROPONIN I 0.025 ng/mL
[2018-10-17 18:12] LABS: AMORPHOUS SEDIMENT,URINE TRACE /HPF; APPEARANCE,URINE TURBID; BILIRUBIN,URINE NEGATIVE (NEGATIVE); COLOR,URINE YELLOW; GLUCOSE, URINE NEGATIVE (NEGATIVE); KETONES,URINE NEGATIVE (NEGATIVE); LEUKOCYTE ESTERASE,URINE MODERATE (NEGATIVE); NITRITE,URINE NEGATIVE (NEGATIVE); PROTEIN,URINE NEGATIVE (NEGATIVE); URINE SPECIFIC GRAVITY 1.015; UROBILINOGEN,URINE NEGATIVE mg/dL (<2.0)
[2018-10-17] MEDS: PATIROMER 8.4 GM SUSP PACKET PO SCH (18:17)
[2018-10-17] MEDS: DEXAMETHASONE 4 MG TABLET PO SCH (18:17)
[2018-10-17] MEDS: DOCUSATE SODIUM 100 MG CAPSULE PO SCH (18:17)
[2018-10-17] MEDS: FLUCONAZOLE 100 MG TABLET PO SCH (18:17)
[2018-10-17] MEDS: MEGESTROL ACETATE 20 MG TABLET PO SCH (18:18)
[2018-10-17] MEDS: ASPIRIN 81 MG TABLET, ENT COATED PO SCH (18:18)
[2018-10-17] MEDS: ENOXAPARIN SODIUM INJ 30 MG/0.3 ML DISP.SYRIN SUBCUT SCH (18:23)
[2018-10-17] MEDS: PIPERACILLIN SODIUM/TAZOBACTAM 3.375 GM in NORMAL SALINE 100 ML IV SCH ×2 (18:28→23:10)
[2018-10-17] MEDS: FAMOTIDINE INJ/PF 20 MG/2 ML SDV IV SCH ×2 (18:29→21:56)
[2018-10-17] MEDS ORDERED: LORAZEPAM INJ 2 MG/1 ML VIAL IV PRN (21:37)
--- NOTE | 2018-10-17 23:03 | EKG REPORT ---
SEVERITY:- NORMAL ECG - SINUS RHYTHM : Confirmed by: Sunni Charles 17-Oct-2018 23:03:01
[2018-10-18 04:11] LABS: HEMOGLOBIN 9.8 g/dL (12.0-15.5); MEAN CORPUSCULAR HEMOGLOBIN 27.7 pg (27.0-33.4); MEAN CORPUSCULAR HGB CONC 32.8 g/dL (32.0-36.0); MEAN CORPUSCULAR VOLUME 85 fl (80-97); PLATELET COUNT 176 10^3/uL (150-450); RED BLOOD COUNT 3.55 10^6/uL (3.72-5.28); RED CELL DISTRIBUTION WIDTH 16.8 % (11.5-14.0); WHITE BLOOD COUNT 13.1 10^3/uL (4.0-10.5)
[2018-10-18 04:37] LABS: ABSOLUTE MONOCYTES # (MANUAL) 0.1 10^3/uL (0.1-1.4); BAND NEUTROPHILS % (MANUAL) 8 % (3-5); BASOPHILS % (MANUAL) 0 % (0-2); EOSINOPHILS % (MANUAL) 0 % (0-6); LYMPHOCYTES % (MANUAL) 0 % (13-45); MONOCYTES % (MANUAL) 1 % (3-13); SEGMENTED NEUTROPHILS % (MAN) 91 % (42-78); TOTAL CELLS COUNTED 100
[2018-10-18 04:38] LABS: PLATELET CLUMPS PRESENT; TOXIC GRANULATION 1+; TOXIC VACUOLATION PRESENT
[2018-10-18 04:39] LABS: ALANINE AMINOTRANSFERASE 124 U/L (9-52); ALBUMIN 2.3 g/dL (3.5-5.0); ALKALINE PHOSPHATASE 358 U/L (38-126); ANION GAP 11 (5-19); ASPARTATE AMINO TRANSFERASE 134 U/L (14-36); BILIRUBIN,TOTAL 1.3 mg/dL (0.2-1.3); BLOOD UREA NITROGEN 54 mg/dL (7-20); BURR CELLS SLIGHT; CALCIUM 8.5 mg/dL (8.4-10.2); CARBON DIOXIDE 20 mmol/L (22-30); CHLORIDE 102 mmol/L (98-107); GLUCOSE 73 mg/dL (75-110); OVALOCYTES 1+; POTASSIUM 5.1 mmol/L (3.6-5.0); SODIUM 132.5 mmol/L (137-145); TOTAL PROTEIN 4.9 g/dL (6.3-8.2); TRIGLYCERIDES 222 mg/dL (<150)
[2018-10-18] MEDS ORDERED: LORAZEPAM INJ 2 MG/1 ML VIAL IV PRN (04:42)
[2018-10-18 04:47] LABS: CREATINE KINASE MB 0.43 ng/mL (<4.55); TROPONIN I 0.017 ng/mL; VLDL CHOLESTEROL 44.4 mg/dL (10-31)
[2018-10-18 04:49] LABS: DIRECT LDL 135 mg/dL (<100)
[2018-10-18] MEDS: PIPERACILLIN SODIUM/TAZOBACTAM 3.375 GM in NORMAL SALINE 100 ML IV SCH ×5 (06:28→23:32)
[2018-10-18] MEDS: NORMAL SALINE 1000 ML 1,000 ML IV PRN ×2 (06:29→23:33)
[2018-10-18] MEDS: DOCUSATE SODIUM 100 MG CAPSULE PO SCH ×2 (09:02→17:50)
[2018-10-18] MEDS: FAMOTIDINE INJ/PF 20 MG/2 ML SDV IV SCH ×2 (09:14→21:28)
[2018-10-18] MEDS: ASPIRIN 81 MG TABLET, ENT COATED PO SCH (09:14)
[2018-10-18] MEDS: DEXAMETHASONE 4 MG TABLET PO SCH (09:14)
[2018-10-18] MEDS: MEGESTROL ACETATE 20 MG TABLET PO SCH (09:14)
[2018-10-18] MEDS: ENOXAPARIN SODIUM INJ 30 MG/0.3 ML DISP.SYRIN SUBCUT SCH (09:15)
--- NOTE | 2018-10-18 11:55 | PDOC CONSULTATION ---
Consultation Consult Date: 10/18/18 Attending physician:: YOHANA PÉREZ Consult reason:: And history of rectal cancer with brain metastasis, currently receiving brain radiation, here with debilitation, dehydration History of Present Illness Admission Date/PCP: 10/17/18 13:43 BHARGAVI JOSHUA MD Patient complains of: Weakness, increasing neurologic deficits, poor p.o. intake History of Present Illness: RAY BURGESS is a 57 year old female with known history of stage IV rectal cancer with brain metastasis, currently receiving whole brain radiation, 5/10 of treatments thus far. Over the last 48 hours experiencing increasing dehydration, weakness, poor p.o. intake, notes over the last 5 to 7 days her neurologic status has declined, now having some left-sided facial weakness and weakness in the extremities. She also is dealing with corneal abrasions r ecently, that may have resulted from the eye patch that she was wearing. She was discharged with treatment for the corneal abrasion and then came back because she had positive cultures, upon coming back she was hypotensive, dehydrated, tachycardic was given aggressive hydration and has been started on antibiotics for the positive cultures. I had a long discussion with the about the recent decline of patient but at present he is not ready to initiate a DNR status for the patient or consider comfort care measures, he still wants to see how things go and consider further treatment if possible. Past Medical History Cardiac Medical History: Reports: Hyperlipidema, Hypertension Denies: Atrial Fibrillation, Congestive Heart Failure, Coronary Artery Disease, Myocardial Infarction, Peripheral Vascular Disease, Heart Murmur Pulmonary Medical History: Neurological Medical History: Renal/ Medical History: Denies: End Stage Renal Disease Malignancy Medical History: Reports: Colorectal Cancer - Stage IV with brain metastasis GI Medical History: Denies: Crohn's Disease, Gastroesophageal Reflux Disease, Hiatal Hernia Musculoskeltal Medical History: Psychiatric Medical History: Hematology: Past Surgical History Past Surgical History: Reports: Tubal Ligation Denies: Appendectomy, Section, Cholecystectomy, Colostomy, Coronary Artery Bypass Graft, Gastric Bypass Surgery, Herniorrhaphy, Hysterectomy, Mastectomy, Pacemaker, Tonsillectomy Social History Information Source: Patient Smoking Status: Former Smoker Frequency of Alcohol Use: Rare Hx Recreational Drug Use: No Drugs: None Hx Prescription Drug Abuse: No - Advance Directive Resuscitation Status: Full Code Family History Family History: None Parental Family History Reviewed: Yes Children Family History Reviewed: Yes Sibling(s) Family History Reviewed.: Yes Medication/Allergy Home Medications: Aspirin [Ecotrin] 81 mg PO DAILY 10/17/18 Dexamethasone [Decadron 4 Mg Tablet] 8 mg PO BID 10/17/18 Fluconazole [Diflucan] 200 mg PO DAILY 10/17/18 Garlic 1 each PO DAILY 10/17/18 Lisinopril 20 mg PO DAILY 10/17/18 Lovastatin [Altoprev] 20 mg PO QHS 10/17/18 Megestrol Acetate 40 mg PO DAILY 10/17/18 Tramadol HCl [Ultram] 50 mg PO Q6HP PRN 10/17/18 Allergies/Adverse Reactions: No Known Allergies Allergy (Verified 10/17/18 09:00) Review of Systems ROS unobtainable: Due to mental status Physical Exam Vital Signs: Temp Pulse Resp BP Pulse Ox 97.8 F 117 H 20 92/59 L 100 10/18/18 08:00 10/18/18 08:00 10/18/18 08:00 10/18/18 08:00 10/18/18 08:00 Intake & Output 10/17/18 10/18/18 10/19/18 06:59 06:59 06:59 Intake Total 3133 100 Balance 3133 100 Weight 52.9 kg General appearance: PRESENT: mild distress, thin Eye exam: PRESENT: other - Left taped shut Mouth exam: PRESENT: dry mucosa Teeth exam: PRESENT: poor dentation Respiratory exam: PRESENT: clear to auscultation digna. ABSENT: rales, rhonchi, wheezes Cardiovascular exam: PRESENT: RRR. ABSENT: diastolic murmur, rubs, systolic murmur GI/Abdominal exam: PRESENT: normal bowel sounds, soft. ABSENT: distended, guarding, mass, organolmegaly, rebound, tenderness Rectal exam: PRESENT: deferred Neurological exam: PRESENT: altered Psychiatric exam: PRESENT: anxious Results Laboratory Results: 10/18/18 03:13 10/18/18 03:13 10/17/18 10/17/18 10/17/18 09:40 10:38 10:47 WBC 14.0 H RBC 3.82 Hgb 10.6 L Hct 32.4 L MCV 85 MCH 27.9 MCHC 32.8 RDW 16.5 H Plt Count 226 Seg Neutrophils % Not Reportable Lymphocytes % Not Reportable Monocytes % Not Reportable Eosinophils % Not Reportable Basophils % Not Reportable Absolute Neutrophils Not Reportable Absolute Lymphocytes Not Reportable Absolute Monocytes Not Reportable Absolute Eosinophils Not Reportable Absolute Basophils Not Reportable Sodium Potassium Chloride Carbon Dioxide Anion Gap BUN Creatinine Est GFR ( Amer) Est GFR (Non-Af Amer) Glucose Lactic Acid 3.6 H Calcium Magnesium Total Bilirubin AST ALT Alkaline Phosphatase Total Protein Albumin Triglycerides Cholesterol LDL Cholesterol Direct VLDL Cholesterol HDL Cholesterol Amylase 52 TSH Urine Color Urine Appearance Urine pH Ur Specific [place] Urine Protein Urine Glucose (UA) Urine Ketones Urine Blood Urine Nitrite Ur Leukocyte Esterase Urine WBC (Auto) Urine RBC (Auto) 10/17/18 10/17/18 10/18/18 15:35 16:30 03:13 WBC 13.1 H RBC 3.55 L Hgb 9.8 L Hct 30.0 L MCV 85 MCH 27.7 MCHC 32.8 RDW 16.8 H Plt Count 176 Seg Neutrophils % Not Reportable Lymphocytes % Not Reportable Monocytes % Not Reportable Eosinophils % Not Reportable Basophils % Not Reportable Absolute Neutrophils Not Reportable Absolute Lymphocytes Not Reportable Absolute Monocytes Not Reportable Absolute Eosinophils Not Reportable Absolute Basophils Not Reportable Sodium Potassium Chloride Carbon Dioxide Anion Gap BUN Creatinine Est GFR ( Amer) Est GFR (Non-Af Amer) Glucose Lactic Acid 1.9 Calcium Magnesium Total Bilirubin AST ALT Alkaline Phosphatase Total Protein Albumin Triglycerides Cholesterol LDL Cholesterol Direct VLDL Cholesterol HDL Cholesterol Amylase TSH Urine Color YELLOW Urine Appearance TURBID Urine pH 5.0 Ur Specific [place] 1.015 Urine Protein NEGATIVE Urine Glucose (UA) NEGATIVE Urine Ketones NEGATIVE Urine Blood MODERATE H Urine Nitrite NEGATIVE Ur Leukocyte Esterase MODERATE H Urine WBC (Auto) 71 Urine RBC (Auto) 2 10/18/18 10/18/18 03:13 03:13 WBC RBC Hgb Hct MCV MCH MCHC RDW Plt Count Seg Neutrophils % Lymphocytes % Monocytes % Eosinophils % Basophils % Absolute Neutrophils Absolute Lymphocytes Absolute Monocytes Absolute Eosinophils Absolute Basophils Sodium 132.5 L Potassium 5.1 H Chloride 102 Carbon Dioxide 20 L Anion Gap 11 BUN 54 H Creatinine 1.50 H Est GFR ( Amer) 44 L Est GFR (Non-Af Amer) 36 L Glucose 73 L Lactic Acid Calcium 8.5 Magnesium 2.5 H Total Bilirubin 1.3 AST 134 H ALT 124 H Alkaline Phosphatase 358 H Total Protein 4.9 L Albumin 2.3 L Triglycerides 222 H Cholesterol 234.20 H LDL Cholesterol Direct 135 H VLDL Cholesterol 44.4 H HDL Cholesterol 20 L Amylase TSH 0.08 L Urine Color Urine Appearance Urine pH Ur Specific [place] Urine Protein Urine Glucose (UA) Urine Ketones Urine Blood Urine Nitrite Ur Leukocyte Esterase Urine WBC (Auto) Urine RBC (Auto) 10/17/18 10/17/18 10/17/18 10:47 10:47 16:30 Creatine Kinase 120 132 CK-MB (CK-2) 0.45 Troponin I 0.027 NT-Pro-B Natriuret Pep 10/17/18 10/18/18 10/18/18 16:30 03:13 03:13 Creatine Kinase 133 CK-MB (CK-2) 0.44 0.43 Troponin I 0.025 0.017 NT-Pro-B Natriuret Pep 10/18/18 03:13 Creatine Kinase CK-MB (CK-2) Troponin I NT-Pro-B Natriuret Pep 288 Impressions: Chest X-Ray 10/17/18 14:48 IMPRESSION: NO ACUTE FINDINGS. Assessment & Plan - Diagnosis (1) Rectal cancer Is this a current diagnosis for this admission?: Yes Plan: Stage IV rectal cancer with brain metastasis, significant decline over the last week. Continue with current therapy for the bacteremia as well as hydration. Dr. Ramirez will be back tomorrow to discuss further care with patient. (2) SIRS (systemic inflammatory response syndrome) Is this a current diagnosis for this admission?: Yes Plan: Bacteremia, continue antibiotics per hospitalist team (3) Acute kidney injury Is this a current diagnosis for this admission?: Yes Plan: Secondary to dehydration, continue with aggressive hydration (4) Corneal abrasion Qualifiers: Encounter type: initial encounter Laterality: left Qualified Code(s): S05.02XA - Injury of conjunctiva and corneal abrasion without foreign body, left eye, initial encounter Is this a current diagnosis for this admission?: Yes Plan: May need ophthalmologic evaluation tomorrow (5) Pain, neoplasm-related Is this a current diagnosis for this admission?: Yes Plan: Patient does have pain start low-dose morphine for patient (6) Brain metastases Is this a current diagnosis for this admission?: Yes Plan: Unsure if patient will be strong enough for radiation tomorrow, I will just restart her dexamethasone IV - Time Time Spent: Greater than 70 Minutes
[2018-10-18] MEDS ORDERED: COLLAGENASE CLOSTRIDIUM HIST. OINT 30 GM TOP SCH (12:00)
[2018-10-18] MEDS: PATIROMER 8.4 GM SUSP PACKET PO SCH (13:04)
[2018-10-18] MEDS ORDERED: ERYTHROMYCIN 0.5% OPH OINT 1 GM UNIT DOSE OS PRN (13:34)
[2018-10-18] MEDS ORDERED: VANCOMYCIN HCL 0 MG in DEXTROSE 5%-WATER 250 ML IV NR (14:15)
[2018-10-18 14:44] LABS: AMORPHOUS SEDIMENT,URINE 1+ /HPF; APPEARANCE,URINE CLOUDY; BILIRUBIN,URINE NEGATIVE (NEGATIVE); COLOR,URINE YELLOW; GLUCOSE, URINE NEGATIVE (NEGATIVE); KETONES,URINE NEGATIVE (NEGATIVE); LEUKOCYTE ESTERASE,URINE NEGATIVE (NEGATIVE); NITRITE,URINE NEGATIVE (NEGATIVE); PROTEIN,URINE NEGATIVE (NEGATIVE); UROBILINOGEN,URINE NEGATIVE mg/dL (<2.0)
[2018-10-18 15:24] LABS: ALANINE AMINOTRANSFERASE 121 U/L (9-52); ALBUMIN 2.3 g/dL (3.5-5.0); ALKALINE PHOSPHATASE 350 U/L (38-126); ANION GAP 12 (5-19); ASPARTATE AMINO TRANSFERASE 130 U/L (14-36); BILIRUBIN,TOTAL 1.1 mg/dL (0.2-1.3); BLOOD UREA NITROGEN 54 mg/dL (7-20); CALCIUM 8.6 mg/dL (8.4-10.2); CARBON DIOXIDE 19 mmol/L (22-30); CHLORIDE 103 mmol/L (98-107); GLUCOSE 83 mg/dL (75-110); TOTAL PROTEIN 4.9 g/dL (6.3-8.2)
[2018-10-18] MEDS ORDERED: VANCOMYCIN HCL 1,000 MG in DEXTROSE 5%-WATER 250 ML IV ONE (16:00)
--- NOTE | 2018-10-18 16:12 | PDOC PROGRESS REPORT ---
Subjective Progress Note for:: 10/18/18 Subjective:: The patient is quite somnolent. She has multiple brain metastases. It is because crossed vision in the left eye which is taped shut. She has difficulty maneuvering her jaw and it hangs open. She is intermittently waking for several seconds and then falls back asleep. She has a Smith catheter in with cloudy yellow-orange urine. Edema both lower extremities as well. Reason For Visit: ACUTE KIDNEY INJURY Physical Exam Vital Signs: Temp Pulse Resp BP Pulse Ox 97.8 F 117 H 20 92/59 L 100 10/18/18 08:00 10/18/18 08:00 10/18/18 08:00 10/18/18 08:00 10/18/18 08:00 Intake & Output 10/17/18 10/18/18 10/19/18 06:59 06:59 06:59 Intake Total 3133 100 Balance 3133 100 Weight 52.9 kg General appearance: PRESENT: mild distress, thin - Very frail-appearing 57-year-old female resting in bed.. ABSENT: cooperative - Unable to meaningfully participate during the encounter. Eye exam: PRESENT: other - Left eye taped shut. Mouth exam: PRESENT: dry mucosa, other - Unable to close her mouth while sleeping. Respiratory exam: PRESENT: clear to auscultation digna - But with markedly decreased inspiratory phase, symmetrical. ABSENT: accessory muscle use, rales, rhonchi, wheezes Cardiovascular exam: PRESENT: +S1, +S2, tachycardia GI/Abdominal exam: PRESENT: diminished bowel sounds, soft, tenderness. ABSENT: distended Rectal exam: PRESENT: deferred Gentrourinary exam: PRESENT: indwelling catheter - Urine is extremely cloudy and has a yellow-orange color. Extremities exam: PRESENT: pedal edema, +1 edema - At the knees Musculoskeletal exam: ABSENT: ambulatory Neurological exam: PRESENT: awake - Intermittently for brief periods (seconds), oriented to person - Response to her name, oriented to place - Appears to appreciate that she is in the hospital. ABSENT: alert Psychiatric exam: PRESENT: flat affect. ABSENT: agitated, anxious Focused psych exam: PRESENT: other - Somnolent Results Laboratory Results: 10/18/18 03:13 10/18/18 03:13 05/04/19 05/04/19 05/04/19 10:38 10:47 15:35 WBC 14.0 H RBC 3.82 Hgb 10.6 L Hct 32.4 L MCV 85 MCH 27.9 MCHC 32.8 RDW 16.5 H Plt Count 226 Seg Neutrophils % Lymphocytes % Monocytes % Eosinophils % Basophils % Absolute Neutrophils Absolute Lymphocytes Absolute Monocytes Absolute Eosinophils Absolute Basophils Sodium Potassium Chloride Carbon Dioxide Anion Gap BUN Creatinine Est GFR ( Amer) Est GFR (Non-Af Amer) Glucose Lactic Acid Calcium Magnesium Total Bilirubin AST ALT Alkaline Phosphatase Total Protein Albumin Triglycerides Cholesterol LDL Cholesterol Direct VLDL Cholesterol HDL Cholesterol Amylase 52 TSH Urine Color YELLOW Urine Appearance TURBID Urine pH 5.0 Ur Specific [place] 1.015 Urine Protein NEGATIVE Urine Glucose (UA) NEGATIVE Urine Ketones NEGATIVE Urine Blood MODERATE H Urine Nitrite NEGATIVE Ur Leukocyte Esterase MODERATE H Urine WBC (Auto) 71 Urine RBC (Auto) 2 10/17/18 10/18/18 10/18/18 16:30 03:13 03:13 WBC 13.1 H RBC 3.55 L Hgb 9.8 L Hct 30.0 L MCV 85 MCH 27.7 MCHC 32.8 RDW 16.8 H Plt Count 176 Seg Neutrophils % Not Reportable Lymphocytes % Not Reportable Monocytes % Not Reportable Eosinophils % Not Reportable Basophils % Not Reportable Absolute Neutrophils Not Reportable Absolute Lymphocytes Not Reportable Absolute Monocytes Not Reportable Absolute Eosinophils Not Reportable Absolute Basophils Not Reportable Sodium 132.5 L Potassium 5.1 H Chloride 102 Carbon Dioxide 20 L Anion Gap 11 BUN 54 H Creatinine 1.50 H Est GFR ( Amer) 44 L Est GFR (Non-Af Amer) 36 L Glucose 73 L Lactic Acid 1.9 Calcium 8.5 Magnesium 2.5 H Total Bilirubin 1.3 AST 134 H ALT 124 H Alkaline Phosphatase 358 H Total Protein 4.9 L Albumin 2.3 L Triglycerides 222 H Cholesterol 234.20 H LDL Cholesterol Direct 135 H VLDL Cholesterol 44.4 H HDL Cholesterol 20 L Amylase TSH Urine Color Urine Appearance Urine pH Ur Specific [place] Urine Protein Urine Glucose (UA) Urine Ketones Urine Blood Urine Nitrite Ur Leukocyte Esterase Urine WBC (Auto) Urine RBC (Auto) 10/18/18 03:13 WBC RBC Hgb Hct MCV MCH MCHC RDW Plt Count Seg Neutrophils % Lymphocytes % Monocytes % Eosinophils % Basophils % Absolute Neutrophils Absolute Lymphocytes Absolute Monocytes Absolute Eosinophils Absolute Basophils Sodium Potassium Chloride Carbon Dioxide Anion Gap BUN Creatinine Est GFR ( Amer) Est GFR (Non-Af Amer) Glucose Lactic Acid Calcium Magnesium Total Bilirubin AST ALT Alkaline Phosphatase Total Protein Albumin Triglycerides Cholesterol LDL Cholesterol Direct VLDL Cholesterol HDL Cholesterol Amylase TSH 0.08 L Urine Color Urine Appearance Urine pH Ur Specific [place] Urine Protein Urine Glucose (UA) Urine Ketones Urine Blood Urine Nitrite Ur Leukocyte Esterase Urine WBC (Auto) Urine RBC (Auto) 10/17/18 10/17/18 10/17/18 10:47 10:47 16:30 Creatine Kinase 120 132 CK-MB (CK-2) 0.45 Troponin I 0.027 NT-Pro-B Natriuret Pep 10/17/18 10/18/18 10/18/18 16:30 03:13 03:13 Creatine Kinase 133 CK-MB (CK-2) 0.44 0.43 Troponin I 0.025 0.017 NT-Pro-B Natriuret Pep 10/18/18 03:13 Creatine Kinase CK-MB (CK-2) Troponin I NT-Pro-B Natriuret Pep 288 Impressions: Chest X-Ray 10/17/18 14:48 IMPRESSION: NO ACUTE FINDINGS. Assessment and Plan - Diagnosis (1) Streptococcal sepsis Is this a current diagnosis for this admission?: Yes Plan: 2 sets of blood culture bottles are positive for gram-positive cocci in pairs. This could be a characteristic presentation for pneumococcus. The patient exhibited acute kidney injury, hypotension with map less than 70 and altered mental status. She had abnormal transaminases and an elevated lactic acid. She was given IV fluids. Her lactic acid normalized. She is still hypotensive but continues to receive fluids. Antibiotics were initiated at presentation. I have added vancomycin. (2) Acute renal injury due to sepsis Is this a current diagnosis for this admission?: Yes Plan: Likely due to sepsis with hypoperfusion. Continue IV fluids and continue to monitor renal function. (3) Hyperkalemia Is this a current diagnosis for this admission?: Yes Plan: The serum potassium is elevated but will dilute with IV fluids. It is a direct result of the acute kidney injury. We will continue to monitor. She is unable to safely swallow at this time and had surgery for her rectal cancer so administration of Kayexalate is difficult. The plan is to place a Dobbhoff feeding tube and this will help medication administration and nutrition. (4) Hyponatremia Is this a current diagnosis for this admission?: Yes Plan: The patient has mild hyponatremia. She has had in the past. Her brain metastases are high on the list of possible etiologies. She is receiving normal saline and this should help correct her low sodium. (5) Corneal abrasion Qualifiers: Encounter type: initial encounter Laterality: left Qualified Code(s): S05.02XA - Injury of conjunctiva and corneal abrasion without foreign body, left eye, initial encounter Is this a current diagnosis for this admission?: Yes Plan: She is already on erythromycin ophthalmic ointment. It is supposed to be applied every 6 hours scheduled and every 2 hours while awake. As noted above her left eye is taped shut (6) Hypotension Qualifiers: Hypotension type: hypotension due to hypovolemia Qualified Code(s): I95.89 - Other hypotension; E86.1 - Hypovolemia Is this a current diagnosis for this admission?: Yes Plan: Currently receiving IV fluids. She is a full code and if required we can institute pressor therapy. Her prognosis is grave. She was seen by oncology today and discussions about hospice or not well received. Her primary oncologist will be seeing her tomorrow. (7) Rectal cancer Is this a current diagnosis for this admission?: Yes Plan: The patient recently had abdominal surgery with partial gastrectomy and hepatectomy as well as AP resection of a rectal cancer. She has brain metastases. She has received several radiation treatments. She is extremely compromised and septic. She is being seen by oncology. Her prognosis is quite poor. (8) Dysphagia Qualifiers: Dysphagia type: oropharyngeal phase Qualified Code(s): R13.12 - Dysphagia, oropharyngeal phase Is this a current diagnosis for this admission?: Yes Plan: The brain metastases have caused dysfunction with the patient's swallow, left eye and hemiplegia. The reports that the patient has not had meaningful nutrition over the last 2 days. I have ordered a Dobbhoff feeding tube so that we can begin tube feeds as well as administer medications. He is worried that it may affect her swallow however her swallow is compromised and unless there is a significant change in her brain metastases this could be a chronic progressive problem. He did mention a PEG tube. I believe oncology should discuss hospice measures as well. - Time Time Spent with patient: 25-34 minutes Medications reviewed and adjusted accordingly: Yes
[2018-10-18] MEDS: ERYTHROMYCIN 0.5% OPH OINT 1 GM UNIT DOSE OS SCH ×2 (17:58→23:32)
[2018-10-18] MEDS: FLUCONAZOLE 100 MG TABLET PO SCH (18:10)
[2018-10-18] MEDS: DEXAMETHASONE SOD PHOSPHATE INJ 4 MG/1 ML VIAL IV SCH (21:27)
[2018-10-18] MEDS: COLLAGENASE CLOSTRIDIUM HIST. OINT 30 GM TOP SCH (21:30)
--- NOTE | 2018-10-18 22:42 | PDOC CONSULTATION ---
Consultation Consult Date: 10/18/18 Consult reason:: Perineal wound History of Present Illness Admission Date/PCP: 10/17/18 13:43 BHARGAVI JOSHUA MD History of Present Illness: RAY BURGESS is a 57 year old female seen in consultation at the request of the hospitalist service. This is a patient who is several months status post APR for rectal cancer. After her surgery, she was found to have metastatic disease to the brain. The patient is currently receiving directed radiation therapy for brain metastasis. Patient has a perineal wound that has been slow to heal. Wound VAC has been in place. The patient was admitted for weakness, dehydration, and failure to thrive. Currently, she denies chest pain, shortness of breath, fevers, chills, nausea, vomiting. She does report malaise, fatigue, loss of appetite. Past Medical History Cardiac Medical History: Reports: Hyperlipidema, Hypertension Denies: Atrial Fibrillation, Congestive Heart Failure, Coronary Artery D isease, Myocardial Infarction, Peripheral Vascular Disease, Heart Murmur Pulmonary Medical History: Neurological Medical History: Renal/ Medical History: Denies: End Stage Renal Disease Malignancy Medical History: Reports: Colorectal Cancer - Stage IV with brain metastasis GI Medical History: Denies: Crohn's Disease, Gastroesophageal Reflux Disease, Hiatal Hernia Musculoskeltal Medical History: Psychiatric Medical History: Hematology: Past Surgical History Past Surgical History: Reports: Tubal Ligation, Other - Abdominoperineal resection for rectal cancer with partial liver resection Denies: Appendectomy, Section, Cholecystectomy, Colostomy, Coronary Artery Bypass Graft, Gastric Bypass Surgery, Herniorrhaphy, Hysterectomy, Mastec obdulia, Pacemaker, Tonsillectomy Social History Smoking Status: Former Smoker Frequency of Alcohol Use: Rare Hx Recreational Drug Use: No Drugs: None Hx Prescription Drug Abuse: No - Advance Directive Resuscitation Status: Full Code Family History Family History: None Parental Family History Reviewed: Yes Children Family History Reviewed: Yes Sibling(s) Family History Reviewed.: Yes Medication/Allergy Home Medications: Aspirin [Ecotrin] 81 mg PO DAILY 10/17/18 Dexamethasone [Decadron 4 Mg Tablet] 8 mg PO BID 10/17/18 Fluconazole [Diflucan] 200 mg PO DAILY 10/17/18 Garlic 1 each PO DAILY 10/17/18 Lisinopril 20 mg PO DAILY 10/17/18 Lovastatin [Altoprev] 20 mg PO QHS 10/17/18 Megestrol Acetate 40 mg PO DAILY 10/17/18 Tramadol HCl [Ultram] 50 mg PO Q6HP PRN 10/17/18 Allergies/Adverse Reactions: No Known Allergies Allergy (Verified 10/17/18 09:00) Review of Systems Constitutional: PRESENT: anorexia, fatigue, weakness. ABSENT: chills, fever(s) Eyes: PRESENT: visual disturbances Ears: PRESENT: hearing changes Nose, Mouth, and Throat: PRESENT: mouth pain. ABSENT: sore throat Cardiovascular: ABSENT: chest pain Respiratory: ABSENT: cough Gastrointestinal: ABSENT: abdominal pain, bloating, coffee ground emesis Genitourinary: PRESENT: dysuria Musculoskeletal: ABSENT: back pain Integumentary: PRESENT: wounds - Perineal Neurological: ABSENT: confusion, convulsions, dizziness Psychiatric: PRESENT: anxiety, depression Endocrine: ABSENT: cold intolerance, heat intolerance Hematologic/Lymphatic: ABSENT: easy bleeding, easy bruising Physical Exam Vital Signs: Temp Pulse Resp BP Pulse Ox 97.8 F 117 H 20 92/59 L 100 10/18/18 08:00 10/18/18 08:00 10/18/18 08:00 10/18/18 08:00 10/18/18 08:00 Intake & Output 10/17/18 10/18/18 10/19/18 06:59 06:59 06:59 Intake Total 3133 100 Balance 3133 100 Weight 52.9 kg General appearance: PRESENT: cooperative, disheveled, other - Thin appearing Head exam: PRESENT: normocephalic Eye exam: PRESENT: other - Left-sided facial droop Mouth exam: PRESENT: moist, neck supple Neck exam: ABSENT: meningismus, tenderness, thyromegaly, tracheal deviation Respiratory exam: PRESENT: unlabored. ABSENT: chest wall tenderness, tachypnea Cardiovascular exam: PRESENT: RRR Pulses: PRESENT: normal radial pulses Vascular exam: PRESENT: normal capillary refill. ABSENT: pallor GI/Abdominal exam: PRESENT: soft, other - Left lower quadrant colostomy in place and productive. ABSENT: distended, tenderness Rectal exam: PRESENT: other - Perineal wound with maceration of the skin edges due to wound VAC placement. Base of the wound appears healthy with good granulation present. Extremities exam: ABSENT: clubbing Musculoskeletal exam: ABSENT: deformity Neurological exam: PRESENT: alert, awake, oriented to person, oriented to place, oriented to time, oriented to situation, other - Left-sided facial droop. Psychiatric exam: PRESENT: depressed. ABSENT: agitated Focused psych exam: ABSENT: delusional Skin exam: PRESENT: other - See rectal exam. ABSENT: cyanosis, erythema, jaundice Results Laboratory Results: 10/18/18 03:13 10/18/18 03:13 10/17/18 10/17/18 10/17/18 10:38 10:47 15:35 WBC 14.0 H RBC 3.82 Hgb 10.6 L Hct 32.4 L MCV 85 MCH 27.9 MCHC 32.8 RDW 16.5 H Plt Count 226 Seg Neutrophils % Lymphocytes % Monocytes % Eosinophils % Basophils % Absolute Neutrophils Absolute Lymphocytes Absolute Monocytes Absolute Eosinophils Absolute Basophils Sodium Potassium Chloride Carbon Dioxide Anion Gap BUN Creatinine Est GFR ( Amer) Est GFR (Non-Af Amer) Glucose Lactic Acid Calcium Magnesium Total Bilirubin AST ALT Alkaline Phosphatase Total Protein Albumin Triglycerides Cholesterol LDL Cholesterol Direct VLDL Cholesterol HDL Cholesterol Amylase 52 TSH Urine Color YELLOW Urine Appearance TURBID Urine pH 5.0 Ur Specific [place] 1.015 Urine Protein NEGATIVE Urine Glucose (UA) NEGATIVE Urine Ketones NEGATIVE Urine Blood MODERATE H Urine Nitrite NEGATIVE Ur Leukocyte Esterase MODERATE H Urine WBC (Auto) 71 Urine RBC (Auto) 2 10/17/18 10/18/18 10/18/18 16:30 03:13 03:13 WBC 13.1 H RBC 3.55 L Hgb 9.8 L Hct 30.0 L MCV 85 MCH 27.7 MCHC 32.8 RDW 16.8 H Plt Count 176 Seg Neutrophils % Not Reportable Lymphocytes % Not Reportable Monocytes % Not Reportable Eosinophils % Not Reportable Basophils % Not Reportable Absolute Neutrophils Not Reportable Absolute Lymphocytes Not Reportable Absolute Monocytes Not Reportable Absolute Eosinophils Not Reportable Absolute Basophils Not Reportable Sodium 132.5 L Potassium 5.1 H Chloride 102 Carbon Dioxide 20 L Anion Gap 11 BUN 54 H Creatinine 1.50 H Est GFR ( Amer) 44 L Est GFR (Non-Af Amer) 36 L Glucose 73 L Lactic Acid 1.9 Calcium 8.5 Magnesium 2.5 H Total Bilirubin 1.3 AST 134 H ALT 124 H Alkaline Phosphatase 358 H Total Protein 4.9 L Albumin 2.3 L Triglycerides 222 H Cholesterol 234.20 H LDL Cholesterol Direct 135 H VLDL Cholesterol 44.4 H HDL Cholesterol 20 L Amylase TSH Urine Color Urine Appearance Urine pH Ur Specific [place] Urine Protein Urine Glucose (UA) Urine Ketones Urine Blood Urine Nitrite Ur Leukocyte Esterase Urine WBC (Auto) Urine RBC (Auto) 10/18/18 03:13 WBC RBC Hgb Hct MCV MCH MCHC RDW Plt Count Seg Neutrophils % Lymphocytes % Monocytes % Eosinophils % Basophils % Absolute Neutrophils Absolute Lymphocytes Absolute Monocytes Absolute Eosinophils Absolute Basophils Sodium Potassium Chloride Carbon Dioxide Anion Gap BUN Creatinine Est GFR ( Amer) Est GFR (Non-Af Amer) Glucose Lactic Acid Calcium Magnesium Total Bilirubin AST ALT Alkaline Phosphatase Total Protein Albumin Triglycerides Cholesterol LDL Cholesterol Direct VLDL Cholesterol HDL Cholesterol Amylase TSH 0.08 L Urine Color Urine Appearance Urine pH Ur Specific [place] Urine Protein Urine Glucose (UA) Urine Ketones Urine Blood Urine Nitrite Ur Leukocyte Esterase Urine WBC (Auto) Urine RBC (Auto) 10/17/18 10/17/18 10/17/18 10:47 10:47 16:30 Creatine Kinase 120 132 CK-MB (CK-2) 0.45 Troponin I 0.027 NT-Pro-B Natriuret Pep 10/17/18 10/18/18 10/18/18 16:30 03:13 03:13 Creatine Kinase 133 CK-MB (CK-2) 0.44 0.43 Troponin I 0.025 0.017 NT-Pro-B Natriuret Pep 10/18/18 03:13 Creatine Kinase CK-MB (CK-2) Troponin I NT-Pro-B Natriuret Pep 288 Impressions: Chest X-Ray 10/17/18 14:48 IMPRESSION: NO ACUTE FINDINGS. Assessment & Plan - Diagnosis (1) Open wound of perineum Is this a current diagnosis for this admission?: Yes (2) Rectal cancer Is this a current diagnosis for this admission?: Yes - Plan Summary Plan Summary: This is a 57-year-old female with an open wound of the perineum status post abdominoperineal resection for rectal cancer. The patient has been receiving brain radiation for treatment of her metastasis. I have examined the wound and removed the wound VAC. The edges of the skin are macerated, likely from wound VAC placement. The base of the wound is healthy, without purulence. I will change the patient to Santyl ointment and dry dressings for the next several days. Possibly resume wound VAC dressings if the patient's macerated skin begins to heal. Will follow.
[2018-10-19] MEDS: PIPERACILLIN SODIUM/TAZOBACTAM 3.375 GM in NORMAL SALINE 100 ML IV SCH (06:38)
[2018-10-19] MEDS: ERYTHROMYCIN 0.5% OPH OINT 1 GM UNIT DOSE OS SCH ×2 (06:39→11:04)
[2018-10-19 08:32] LABS: HEMATOCRIT 29.1 % (36.0-47.0); HEMOGLOBIN 9.5 g/dL (12.0-15.5); MEAN CORPUSCULAR HEMOGLOBIN 27.6 pg (27.0-33.4); MEAN CORPUSCULAR HGB CONC 32.8 g/dL (32.0-36.0); MEAN CORPUSCULAR VOLUME 84 fl (80-97); PLATELET COUNT 207 10^3/uL (150-450); RED BLOOD COUNT 3.44 10^6/uL (3.72-5.28); RED CELL DISTRIBUTION WIDTH 17.1 % (11.5-14.0); WHITE BLOOD COUNT 16.5 10^3/uL (4.0-10.5)
[2018-10-19 08:56] LABS: ABSOLUTE LYMPHOCYTES# (MANUAL) 0.2 10^3/uL (0.5-4.7); ABSOLUTE NEUTROPHILS# (MANUAL) 16.3 10^3/uL (1.7-8.2); BASOPHILS % (MANUAL) 0 % (0-2); EOSINOPHILS % (MANUAL) 0 % (0-6); LYMPHOCYTES % (MANUAL) 1 % (13-45); MONOCYTES % (MANUAL) 0 % (3-13); SEGMENTED NEUTROPHILS % (MAN) 99 % (42-78); TOTAL CELLS COUNTED 100
[2018-10-19 08:58] LABS: ANISOCYTOSIS 1+; OVALOCYTES 1+; PLATELET COMMENT ADEQUATE; POIKILOCYTOSIS 1+; TOXIC GRANULATION 1+
[2018-10-19 09:20] LABS: ANION GAP 10 (5-19); BLOOD UREA NITROGEN 56 mg/dL (7-20); CALCIUM 8.3 mg/dL (8.4-10.2); CARBON DIOXIDE 20 mmol/L (22-30); CHLORIDE 108 mmol/L (98-107); GLUCOSE 118 mg/dL (75-110); POTASSIUM 4.6 mmol/L (3.6-5.0); SODIUM 137.8 mmol/L (137-145)
[2018-10-19 09:34] LABS: PREALBUMIN 3.5 mg/dL (17.6-36.0)
[2018-10-19] MEDS: ENOXAPARIN SODIUM INJ 30 MG/0.3 ML DISP.SYRIN SUBCUT SCH (10:55)
[2018-10-19] MEDS: DEXAMETHASONE SOD PHOSPHATE INJ 4 MG/1 ML VIAL IV SCH ×2 (10:55→23:09)
[2018-10-19] MEDS: FAMOTIDINE INJ/PF 20 MG/2 ML SDV IV SCH ×2 (10:55→23:09)
[2018-10-19] MEDS: DOCUSATE SODIUM 100 MG CAPSULE PO SCH ×2 (10:55→18:16)
[2018-10-19] MEDS: ASPIRIN 81 MG TABLET, ENT COATED PO SCH (10:55)
[2018-10-19] MEDS: COLLAGENASE CLOSTRIDIUM HIST. OINT 30 GM TOP SCH ×2 (10:56→23:35)
[2018-10-19] MEDS: MEGESTROL ACETATE 20 MG TABLET PO SCH (10:56)
--- NOTE | 2018-10-19 12:32 | PDOC CONSULTATION ---
Consultation Consult Date: 10/19/18 Consult reason:: Hematology/Oncology consultation was requested for patient with metastatic rectal cancer and sepsis. History of Present Illness Admission Date/PCP: 10/17/18 13:43 BHARGAVI JOSHUA MD History of Present Illness: RAY BURGESS is a 57 year old female who was diagnosed with colorectal cancer in Jan 2018. She completed concurrent chemo and radiation to the rectum and then underwent surgical resection on 08/04/2018. Sadly, she was found to have liver mets at that time and shortly after this, was found to have a new brain mass. She is currently in the middle of her radiation treatments to the brain. She was evaluated in the ED for a corneal abrasion and blood cultures were positive for Gram+cocci and patient was admitted. Today, patient and family report that she is doing much better. She is sitting up eating her breakfast. She denies any pain. She asks about having a feeding tube placed. Past Medical History Cardiac Medical History: Reports: Hyperlipidema, Hypertension Denies: Atrial Fibrillation, Congestive Heart Failure, Coronary Artery Disease, Myocardial Infarction, Peripheral Vascular Disease, Heart Murmur Pulmonary Medical History: Neurological Medical History: Renal/ Medical History: Denies: End Stage Renal Disease Malignancy Medical History: Reports: Colorectal Cancer - Stage IV with brain metastasis GI Medical History: Denies: Crohn's Disease, Gastroesophageal Reflux Disease, Hiatal Hernia Musculoskeltal Medical History: Psychiatric Medical History: Hematology: Past Surgical History Past Surgical History: Reports: Tubal Ligation, Other - Abdominoperineal resection for rectal cancer with partial liver resection Denies: Appendectomy, Section, Cholecystectomy, Colostomy, Coronary Artery Bypass Graft, Gastric Bypass Surgery, Herniorrhaphy, Hysterectomy, Mastectomy, Pacemaker, Tonsillectomy Social History Smoking Status: Former Smoker Frequency of Alcohol Use: Rare Hx Recreational Drug Use: No Drugs: None Hx Prescription Drug Abuse: No - Advance Directive Resuscitation Status: Full Code Family History Family History: None Parental Family History Reviewed: Yes - MGM with breast cancer. Father with lymphoma Children Family History Reviewed: No Sibling(s) Family History Reviewed.: Yes Medication/Allergy Home Medications: Aspirin [Ecotrin] 81 mg PO DAILY 10/17/18 Dexamethasone [Decadron 4 Mg Tablet] 8 mg PO BID 10/17/18 Fluconazole [Diflucan] 200 mg PO DAILY 10/17/18 Garlic 1 each PO DAILY 10/17/18 Lisinopril 20 mg PO DAILY 10/17/18 Lovastatin [Altoprev] 20 mg PO QHS 10/17/18 Megestrol Acetate 40 mg PO DAILY 10/17/18 Tramadol HCl [Ultram] 50 mg PO Q6HP PRN 10/17/18 Allergies/Adverse Reactions: No Known Allergies Allergy (Verified 10/17/18 09:00) Review of Systems Constitutional: PRESENT: headache(s). ABSENT: fever(s) Eyes: PRESENT: visual disturbances Cardiovascular: ABSENT: chest pain Respiratory: ABSENT: dyspnea Gastrointestinal: ABSENT: abdominal pain Genitourinary: ABSENT: hematuria Integumentary: ABSENT: pruritus Neurological: PRESENT: abnormal speech, weakness Hematologic/Lymphatic: ABSENT: lymphadenopathy Physical Exam Vital Signs: Temp Pulse Resp BP Pulse Ox 98.6 F 101 H 15 146/88 H 100 10/19/18 08:00 10/19/18 08:00 10/19/18 08:00 10/19/18 08:00 10/19/18 08:00 Intake & Output 10/18/18 10/19/18 10/20/18 06:59 06:59 06:59 Intake Total 3133 670 Output Total 1151 Balance 3133 -481 Weight 52.9 kg 49.8 kg General appearance: PRESENT: thin Head exam: PRESENT: normocephalic Eye exam: PRESENT: other - Left eye deviated medially. Mouth exam: PRESENT: dry mucosa Respiratory exam: PRESENT: clear to auscultation digna, unlabored Cardiovascular exam: PRESENT: RRR GI/Abdominal exam: PRESENT: soft. ABSENT: tenderness Extremities exam: ABSENT: pedal edema Neurological exam: PRESENT: other - Facial droop with drooling, unchanged from last week. Speek difficult due to this.. ABSENT: CN II-XII grossly intact Psychiatric exam: PRESENT: appropriate affect Skin exam: PRESENT: normal color Results Laboratory Results: 10/19/18 08:10 10/19/18 08:10 10/18/18 10/18/18 10/18/18 14:05 14:25 14:25 WBC RBC Hgb Hct MCV MCH MCHC RDW Plt Count Seg Neutrophils % Lymphocytes % Monocytes % Eosinophils % Basophils % Absolute Neutrophils Absolute Lymphocytes Absolute Monocytes Absolute Eosinophils Absolute Basophils Sodium 134.0 L Potassium 5.0 Chloride 103 Carbon Dioxide 19 L Anion Gap 12 BUN 54 H Creatinine 1.69 H Est GFR ( Amer) 38 L Est GFR (Non-Af Amer) 31 L Glucose 83 Lactic Acid 1.5 Calcium 8.6 Magnesium Total Bilirubin 1.1 AST 130 H ALT 121 H Alkaline Phosphatase 350 H Total Protein 4.9 L Albumin 2.3 L Prealbumin Urine Color YELLOW Urine Appearance CLOUDY Urine pH 5.0 Ur Specific Mclean 1.020 Urine Protein NEGATIVE Urine Glucose (UA) NEGATIVE Urine Ketones NEGATIVE Urine Blood NEGATIVE Urine Nitrite NEGATIVE Ur Leukocyte Esterase NEGATIVE Urine WBC (Auto) 4 Urine RBC (Auto) 1 10/19/18 10/19/18 08:10 08:10 WBC 16.5 H RBC 3.44 L Hgb 9.5 L Hct 29.1 L MCV 84 MCH 27.6 MCHC 32.8 RDW 17.1 H Plt Count 207 Seg Neutrophils % Not Reportable Lymphocytes % Not Reportable Monocytes % Not Reportable Eosinophils % Not Reportable Basophils % Not Reportable Absolute Neutrophils Not Reportable Absolute Lymphocytes Not Reportable Absolute Monocytes Not Reportable Absolute Eosinophils Not Reportable Absolute Basophils Not Reportable Sodium 137.8 Potassium 4.6 Chloride 108 H Carbon Dioxide 20 L Anion Gap 10 BUN 56 H Creatinine 1.63 H Est GFR ( Amer) 40 L Est GFR (Non-Af Amer) 33 L Glucose 118 H Lactic Acid Calcium 8.3 L Magnesium 2.5 H Total Bilirubin AST ALT Alkaline Phosphatase Total Protein Albumin Prealbumin 3.5 L Urine Color Urine Appearance Urine pH Ur Specific Mclean Urine Protein Urine Glucose (UA) Urine Ketones Urine Blood Urine Nitrite Ur Leukocyte Esterase Urine WBC (Auto) Urine RBC (Auto) 10/17/18 14:12 Blood Blood Culture - Final Streptococcus Pneumoniae 10/17/18 09:40 Blood Blood Culture - Final Streptococcus Pneumoniae 10/17/18 10/17/18 10/17/18 10:47 10:47 16:30 Creatine Kinase 120 132 CK-MB (CK-2) 0.45 Troponin I 0.027 NT-Pro-B Natriuret Pep 10/17/18 10/18/18 10/18/18 16:30 03:13 03:13 Creatine Kinase 133 CK-MB (CK-2) 0.44 0.43 Troponin I 0.025 0.017 NT-Pro-B Natriuret Pep 10/18/18 03:13 Creatine Kinase CK-MB (CK-2) Troponin I NT-Pro-B Natriuret Pep 288 Impressions: Chest X-Ray 10/17/18 14:48 IMPRESSION: NO ACUTE FINDINGS. Status: Image reviewed by me Assessment & Plan - Diagnosis (1) Brain metastases Is this a current diagnosis for this admission?: Yes Plan: Patient is in the middle of radiation for this. She would like to continue these treatments if possible. I will try to arrange. She should continue dexamethasone, at least 4 mg daily. Currently, this is IV. May change to PO once swallowing a bit better. (2) Rectal cancer Is this a current diagnosis for this admission?: Yes Plan: We discussed further treatment plans. I have explained that she is not currently strong enough for chemo and still has an open surgical wound. She would like to continue radiation, so is not appropriate for Hospice at this time. (3) Streptococcal sepsis Is this a current diagnosis for this admission?: Yes Plan: Continue IV antibiotics for this. She appears to be responding. Her mental status and appetite have greatly improved. (4) Corneal abrasion, left Qualifiers: Qualified Code(s): S05.02XA - Injury of conjunctiva and corneal abrasion without foreign body, left eye, initial encounter Is this a current diagnosis for this admission?: Yes Plan: Eye should be kept patched and taped shut. Consider referral to ophthalmology. - Plan Summary Plan Summary: We discussed PEG tube. Patient and family do not wish to pursue this currently. We also discussed DNR and code status. Patient understands and wishes to remain full code. I will continue to follow. All questions were answered. Patient was discussed with hospitalist and with Dr. Velasquez.
[2018-10-19] MEDS: NORMAL SALINE 1000 ML 1,000 ML IV PRN (13:09)
[2018-10-19] MEDS ORDERED: VANCOMYCIN HCL 750 MG in DEXTROSE 5%-WATER 250 ML IV SCH (14:00)
[2018-10-19] MEDS ORDERED: ERYTHROMYCIN 0.5% OPH OINTMENT 3.5 GM TUBE OS PRN (15:38)
--- NOTE | 2018-10-19 17:09 | PDOC PROGRESS REPORT ---
Subjective Progress Note for:: 10/19/18 Subjective:: This is a very pleasant but unfortunate 57 years old female patient whose past medical history of hypertension, hyperlipidemia tobacco dependence, and stage IV rectal CA with liver and brain metastases and currently receiving whole brain radiation. She presented to ER with chief complaint of corneal abrasion. There attending consulted insurance loss assessor for the corneal abrasion who recommended topical ophthalmic erythromycin and patching the involvement e ye. Blood culture which was done 3 days ago also returned positive for gram- positive cocci. This morning microbiology left notifies me that 4 bottles of blood culture and culture from her eye discharge turned positive for Streptococcus pneumonia which is pansensitive. Patient has been on Zosyn and vancomycin. As I switched this indwelling to ceftriaxone. Reason For Visit: ACUTE KIDNEY INJURY Physical Exam Vital Signs: Temp Pulse Resp BP Pulse Ox 97.3 F 99 16 112/67 100 10/19/18 12:00 10/19/18 14:00 10/19/18 12:00 10/19/18 12:00 10/19/18 12:00 Intake & Output 10/18/18 10/19/18 10/20/18 06:59 06:59 06:59 Intake Total 3133 1670 Output Total 1151 Balance 3133 519 Weight 52.9 kg 49.8 kg General appearance: PRESENT: no acute distress, thin Head exam: PRESENT: atraumatic Eye exam: PRESENT: conjunctival injection - Left eye, other Neck exam: ABSENT: carotid bruit, JVD, lymphadenopathy, thyromegaly Respiratory exam: PRESENT: clear to auscultation digna. ABSENT: rales, rhonchi, wheezes Cardiovascular exam: PRESENT: RRR. ABSENT: diastolic murmur, rubs, systolic murmur GI/Abdominal exam: PRESENT: other - Perineal wound Neurological exam: PRESENT: alert, awake, oriented to time, oriented to situation Results Laboratory Results: 10/19/18 08:10 10/19/18 08:10 10/19/18 10/19/18 08:10 08:10 WBC 16.5 H RBC 3.44 L Hgb 9.5 L Hct 29.1 L MCV 84 MCH 27.6 MCHC 32.8 RDW 17.1 H Plt Count 207 Seg Neutrophils % Not Reportable Lymphocytes % Not Reportable Monocytes % Not Reportable Eosinophils % Not Reportable Basophils % Not Reportable Absolute Neutrophils Not Reportable Absolute Lymphocytes Not Reportable Absolute Monocytes Not Reportable Absolute Eosinophils Not Reportable Absolute Basophils Not Reportable Sodium 137.8 Potassium 4.6 Chloride 108 H Carbon Dioxide 20 L Anion Gap 10 BUN 56 H Creatinine 1.63 H Est GFR ( Amer) 40 L Est GFR (Non-Af Amer) 33 L Glucose 118 H Calcium 8.3 L Magnesium 2.5 H Prealbumin 3.5 L 10/17/18 14:12 Blood Blood Culture - Final Streptococcus Pneumoniae 10/17/18 09:40 Blood Blood Culture - Final Streptococcus Pneumoniae 10/17/18 10/17/18 10/17/18 10:47 10:47 16:30 Creatine Kinase 120 132 CK-MB (CK-2) 0.45 Troponin I 0.027 NT-Pro-B Natriuret Pep 10/17/18 10/18/18 10/18/18 16:30 03:13 03:13 Creatine Kinase 133 CK-MB (CK-2) 0.44 0.43 Troponin I 0.025 0.017 NT-Pro-B Natriuret Pep 10/18/18 03:13 Creatine Kinase CK-MB (CK-2) Troponin I NT-Pro-B Natriuret Pep 288 Impressions: Chest X-Ray 10/17/18 14:48 IMPRESSION: NO ACUTE FINDINGS. Assessment and Plan - Diagnosis (1) Septic shock Is this a current diagnosis for this admission?: Yes Plan: Evidenced by leukocytosis tachycardia, hypotension, acute kidney injury and b lood culture positive for strep pneumoniae. Patient switched from vancomycin and Zosyn to ceftriaxone since the organism is pansensitive. (2) Acute kidney injury Is this a current diagnosis for this admission?: Yes Plan: Cautiously hydrate her. (3) Colorectal cancer, stage IV Is this a current diagnosis for this admission?: Yes Plan: With metastasis to the liver and brain. Currently patient receiving whole brain radiation. (4) Hyponatremia Is this a current diagnosis for this admission?: Yes Plan: Resolved (5) Hyperkalemia Is this a current diagnosis for this admission?: Yes Plan: Resolved (6) Hypertension Qualifiers: Hypertension type: essential hypertension Qualified Code(s): I10 - Essential (primary) hypertension Is this a current diagnosis for this admission?: Yes Plan: Continue home medication (7) Hyperlipidemia Qualifiers: Hyperlipidemia type: unspecified Qualified Code(s): E78.5 - Hyperlipidemia, unspecified Is this a current diagnosis for this admission?: Yes Plan: Continue home medication (8) Corneal abrasion Qualifiers: Laterality: left Is this a current diagnosis for this admission?: Yes Plan: Topical erythromycin and patching exam will be day as recommended by insurance loss assessor. (9) Tobacco dependence Is this a current diagnosis for this admission?: Yes Plan: Patient counseled and encouraged to quit smoking. (10) CODE STATUS Is this a current diagnosis for this admission?: Yes Plan: Currently patient is full code. Dr. Monroy has discussed at length the option of hospice with her and the patient herself and they opted for full code but opted out of PEG placement.
[2018-10-19] MEDS: FLUCONAZOLE 100 MG TABLET PO SCH (18:15)
[2018-10-19] MEDS: ERYTHROMYCIN 0.5% OPH OINTMENT 3.5 GM TUBE OS SCH ×2 (18:17→23:10)
[2018-10-19] MEDS: CEFTRIAXONE 2 GM/D5W RTU 2 GM/50 ML RTUPB IV SCH (18:17)
[2018-10-19] MEDS: TRAMADOL HCL 50 MG TABLET PO PRN (23:59)
[2018-10-20] MEDS: NORMAL SALINE 1000 ML 1,000 ML IV PRN ×3 (00:59→18:31)
[2018-10-20] MEDS: CEFTRIAXONE 2 GM/D5W RTU 2 GM/50 ML RTUPB IV SCH ×2 (06:46→18:08)
[2018-10-20] MEDS: ERYTHROMYCIN 0.5% OPH OINTMENT 3.5 GM TUBE OS SCH ×4 (06:51→23:09)
--- NOTE | 2018-10-20 08:00 | PDOC PROGRESS REPORT ---
Subjective Progress Note for:: 10/19/18 Subjective:: 57 y/o F with metastatic rectal cancer. She reports feeling better today. She is awake and conversive. She ate full liquids today. She denies CP, SOB, N/V, F/C, abdominal pain. She does report fatigue and malaise. Reason For Visit: ACUTE KIDNEY INJURY Physical Exam Vital Signs: Temp Pulse Resp BP Pulse Ox 97.3 F 99 16 112/67 100 10/19/18 12:00 10/19/18 14:00 10/19/18 12:00 10/19/18 12:00 10/19/18 12:00 Intake & Output 10/18/18 10/19/18 10/20/18 06:59 06:59 06:59 Intake Total 3133 1670 Output Total 1151 Balance 3133 519 Weight 52.9 kg 49.8 kg General appearance: PRESENT: cooperative Head exam: PRESENT: atraumatic Eye exam: PRESENT: other - left eye taped shut Mouth exam: PRESENT: moist, neck supple Neck exam: ABSENT: meningismus, tenderness, thyromegaly, tracheal deviation Respiratory exam: PRESENT: clear to auscultation digna, unlabored. ABSENT: chest wall tenderness, tachypnea, wheezes Cardiovascular exam: PRESENT: RRR Vascular exam: PRESENT: normal capillary refill. ABSENT: pallor GI/Abdominal exam: PRESENT: soft, other - colostomy pink and productive. ABSENT: distended, tenderness Rectal exam: PRESENT: other - perineal wound stable, without signs of infection Neurological exam: PRESENT: alert, awake Psychiatric exam: ABSENT: agitated, anxious Skin exam: ABSENT: cyanosis, erythema, jaundice Results Laboratory Results: 10/19/18 08:10 10/19/18 08:10 10/19/18 10/19/18 08:10 08:10 WBC 16.5 H RBC 3.44 L Hgb 9.5 L Hct 29.1 L MCV 84 MCH 27.6 MCHC 32.8 RDW 17.1 H Plt Count 207 Seg Neutrophils % Not Reportable Lymphocytes % Not Reportable Monocytes % Not Reportable Eosinophils % Not Reportable Basophils % Not Reportable Absolute Neutrophils Not Reportable Absolute Lymphocytes Not Reportable Absolute Monocytes Not Reportable Absolute Eosinophils Not Reportable Absolute Basophils Not Reportable Sodium 137.8 Potassium 4.6 Chloride 108 H Carbon Dioxide 20 L Anion Gap 10 BUN 56 H Creatinine 1.63 H Est GFR ( Amer) 40 L Est GFR (Non-Af Amer) 33 L Glucose 118 H Calcium 8.3 L Magnesium 2.5 H Prealbumin 3.5 L 10/17/18 14:12 Blood Blood Culture - Final Streptococcus Pneumoniae 10/17/18 09:40 Blood Blood Culture - Final Streptococcus Pneumoniae 10/17/18 10/17/18 10/17/18 10:47 10:47 16:30 Creatine Kinase 120 132 CK-MB (CK-2) 0.45 Troponin I 0.027 NT-Pro-B Natriuret Pep 10/17/18 10/18/18 10/18/18 16:30 03:13 03:13 Creatine Kinase 133 CK-MB (CK-2) 0.44 0.43 Troponin I 0.025 0.017 NT-Pro-B Natriuret Pep 10/18/18 03:13 Creatine Kinase CK-MB (CK-2) Troponin I NT-Pro-B Natriuret Pep 288 Impressions: Chest X-Ray 10/17/18 14:48 IMPRESSION: NO ACUTE FINDINGS. Assessment & Plan - Diagnosis (1) Open wound of perineum Is this a current diagnosis for this admission?: Yes (2) Rectal cancer Is this a current diagnosis for this admission?: Yes - Plan Summary Plan Summary: 57 y/o F with an open wound of the perineum. Cont with Santyl dressings. Cont medical management. May replace wound VAC at discharge.
--- NOTE | 2018-10-20 08:40 | PDOC PROGRESS REPORT ---
Subjective Progress Note for:: 10/20/18 Subjective:: Patient is "grumpy" this morning. Tried to eat breakfast, but does not like the taste. She was not able to go for radiation yesterday, but plans are to resume radiation today. ROS: No constipation. Ostomy working. No abdominal pain. No dyspnea or cough. Reason For Visit: ACUTE KIDNEY INJURY Physical Exam Vital Signs: Temp Pulse Resp BP Pulse Ox 97.7 F 107 H 19 113/65 100 10/20/18 08:00 10/20/18 08:00 10/20/18 08:00 10/20/18 08:00 10/20/18 08:00 Intake & Output 10/19/18 10/20/18 10/21/18 06:59 06:59 06:59 Intake Total 1670 1740 50 Output Total 1151 1850 Balance 519 -110 50 Weight 49.8 kg 51.2 kg General appearance: PRESENT: thin Head exam: PRESENT: normocephalic Eye exam: PRESENT: other - Left eye has patch in place. Mouth exam: PRESENT: other - Continued drooling due to facial droop. Respiratory exam: PRESENT: clear to auscultation digna, unlabored Cardiovascular exam: PRESENT: RRR GI/Abdominal exam: PRESENT: soft, other - Ostomy bag.. ABSENT: tenderness Extremities exam: ABSENT: pedal edema Neurological exam: PRESENT: alert, awake Psychiatric exam: PRESENT: appropriate affect Skin exam: PRESENT: normal color Results Laboratory Results: 10/19/18 08:10 10/19/18 08:10 10/19/18 08:10 Sodium 137.8 Potassium 4.6 Chloride 108 H Carbon Dioxide 20 L Anion Gap 10 BUN 56 H Creatinine 1.63 H Est GFR ( Amer) 40 L Est GFR (Non-Af Amer) 33 L Glucose 118 H Calcium 8.3 L Magnesium 2.5 H Prealbumin 3.5 L 10/17/18 14:12 Blood Blood Culture - Final Streptococcus Pneumoniae 10/17/18 09:40 Blood Blood Culture - Final Streptococcus Pneumoniae 10/17/18 10/17/18 10/17/18 10:47 10:47 16:30 Creatine Kinase 120 132 CK-MB (CK-2) 0.45 Troponin I 0.027 NT-Pro-B Natriuret Pep 10/17/18 10/18/18 10/18/18 16:30 03:13 03:13 Creatine Kinase 133 CK-MB (CK-2) 0.44 0.43 Troponin I 0.025 0.017 NT-Pro-B Natriuret Pep 10/18/18 03:13 Creatine Kinase CK-MB (CK-2) Troponin I NT-Pro-B Natriuret Pep 288 Impressions: Chest X-Ray 10/17/18 14:48 IMPRESSION: NO ACUTE FINDINGS. Assessment & Plan - Diagnosis (1) Brain metastases Is this a current diagnosis for this admission?: Yes Plan: Continue steroids. May change to PO today or tomorrow. Would continue 4 mg PO BID. Resume radiation today. (2) Rectal cancer Is this a current diagnosis for this admission?: Yes Plan: This is metastatic. I have explained to the patient that she is not strong enough for any systemic treatment. All treatment will be palliative. However, patient continues to want to fight and continue treatment as much as possible. (3) Streptococcal sepsis Is this a current diagnosis for this admission?: Yes Plan: Continue antibiotics. She has greatly improved over the last 48 hours due to this. (4) Corneal abrasion, left Qualifiers: Qualified Code(s): S05.02XA - Injury of conjunctiva and corneal abrasion without foreign body, left eye, initial encounter Is this a current diagnosis for this admission?: Yes - Plan Summary Plan Summary: Unsure if patient will be strong enough to go home at discharge. Although I believe she is a great candidate for Hospice, patient does not seem to want to consider this currently. I will continue to work with her. Until discharge, continue aggressive physical therapy and nutritional support to see if she may regain any strength.
--- NOTE | 2018-10-20 09:32 | PDOC PROGRESS REPORT ---
Subjective Progress Note for:: 10/20/18 Subjective:: 57 y/o F with metastatic rectal cancer. She reports feeling better today. She is awake and conversive. She ate portions of a regular diet today. She denies CP, SOB, N/V, F/C, abdominal pain. She does report fatigue and malaise. Reason For Visit: ACUTE KIDNEY INJURY Physical Exam Vital Signs: Temp Pulse Resp BP Pulse Ox 97.7 F 107 H 19 113/65 100 10/20/18 08:00 10/20/18 08:00 10/20/18 08:00 10/20/18 08:00 10/20/18 08:00 Intake & Output 10/19/18 10/20/18 10/21/18 06:59 06:59 06:59 Intake Total 1670 1740 50 Output Total 1151 1850 Balance 519 -110 50 Weight 49.8 kg 51.2 kg Exam: General appearance: PRESENT: cooperative Head exam: PRESENT: atraumatic Eye exam: PRESENT: other - left eye taped shut Mouth exam: PRESENT: moist, neck supple Neck exam: ABSENT: meningismus, tenderness, thyromegaly, tracheal deviation Respiratory exam: PRESENT: clear to auscultation digna, unlabored. ABSENT: chest wall tenderness, tachypnea, wheezes Cardiovascular exam: PRESENT: RRR Vascular exam: PRESENT: normal capillary refill. ABSENT: pallor GI/Abdominal exam: PRESENT: soft, other - colostomy pink and productive. ABSENT: distended, tenderness Rectal exam: PRESENT: other - perineal wound stable, without signs of infection, granulation present in the base. Neurological exam: PRESENT: alert, awake Psychiatric exam: ABSENT: agitated, anxious Skin exam: ABSENT: cyanosis, erythema, jaundice Results Laboratory Results: 10/19/18 08:10 10/19/18 08:10 10/19/18 08:10 Sodium 137.8 Potassium 4.6 Chloride 108 H Carbon Dioxide 20 L Anion Gap 10 BUN 56 H Creatinine 1.63 H Est GFR ( Amer) 40 L Est GFR (Non-Af Amer) 33 L Glucose 118 H Calcium 8.3 L Magnesium 2.5 H Prealbumin 3.5 L 10/17/18 14:12 Blood Blood Culture - Final Streptococcus Pneumoniae 10/17/18 09:40 Blood Blood Culture - Final Streptococcus Pneumoniae 10/17/18 10/17/1810/17/19 10:47 10:47 16:30 Creatine Kinase 120 132 CK-MB (CK-2) 0.45 Troponin I 0.027 NT-Pro-B Natriuret Pep 10/17/18 10/18/18 10/18/18 16:30 03:13 03:13 Creatine Kinase 133 CK-MB (CK-2) 0.44 0.43 Troponin I 0.025 0.017 NT-Pro-B Natriuret Pep 10/18/18 03:13 Creatine Kinase CK-MB (CK-2) Troponin I NT-Pro-B Natriuret Pep 288 Impressions: Chest X-Ray 10/17/18 14:48 IMPRESSION: NO ACUTE FINDINGS. Assessment & Plan - Diagnosis (1) Open wound of perineum Is this a current diagnosis for this admission?: Yes (2) Rectal cancer Is this a current diagnosis for this admission?: Yes (3) Bacteremia Is this a current diagnosis for this admission?: Yes - Plan Summary Plan Summary: 57 y/o F with an open wound of the perineum. Cont with Santyl dressings for now. Cont medical management. Pt and to decide on Wound VAC continuation vs dressing changes at discharge. Pt with bacteremia (Strep pneumoniae). This is likely due to an upper respiratory/oropharyngeal/occular infection. At this time it is felt unlikely related to the pt's mediport. However if her becteremia persists, she may require removal of her port with an alternate IV site temporarily. Repeat blood culture through port today. Consult social media executive to help arrange DME.
[2018-10-20] MEDS: FAMOTIDINE INJ/PF 20 MG/2 ML SDV IV SCH ×2 (10:22→22:53)
[2018-10-20] MEDS: DEXAMETHASONE SOD PHOSPHATE INJ 4 MG/1 ML VIAL IV SCH ×2 (10:23→22:53)
[2018-10-20] MEDS: ASPIRIN 81 MG TABLET, ENT COATED PO SCH (10:23)
[2018-10-20] MEDS: ENOXAPARIN SODIUM INJ 30 MG/0.3 ML DISP.SYRIN SUBCUT SCH (10:23)
[2018-10-20] MEDS: TRAMADOL HCL 50 MG TABLET PO PRN (10:24)
[2018-10-20] MEDS: DOCUSATE SODIUM 100 MG CAPSULE PO SCH ×2 (10:33→18:08)
[2018-10-20] MEDS: COLLAGENASE CLOSTRIDIUM HIST. OINT 30 GM TOP SCH ×2 (10:33→22:53)
--- NOTE | 2018-10-20 15:13 | PDOC PROGRESS REPORT ---
Subjective Progress Note for:: 10/20/18 Subjective:: I seen patient propped up in bed. Shortness of present pain has been subsiding. Patient scheduled for whole brain irradiation today. Reason For Visit: ACUTE KIDNEY INJURY Physical Exam Vital Signs: Temp Pulse Resp BP Pulse Ox 97.8 F 111 H 17 109/72 99 10/20/18 12:00 10/20/18 12:00 10/20/18 12:00 10/20/18 12:00 10/20/18 12:00 Intake & Output 10/19/18 10/20/18 10/21/18 06:59 06:59 06:59 Intake Total 1670 1740 1050 Output Total 1151 1850 Balance 519 -110 1050 Weight 49.8 kg 51.2 kg General appearance: PRESENT: no acute distress Head exam: PRESENT: atraumatic Eye exam: PRESENT: conjunctiva pink, other - Corneal cloudiness. Neck exam: ABSENT: carotid bruit, JVD, lymphadenopathy, thyromegaly Respiratory exam: PRESENT: clear to auscultation digna. ABSENT: rales, rhonchi, wheezes GI/Abdominal exam: PRESENT: normal bowel sounds, soft. ABSENT: distended, guarding, mass, organolmegaly, rebound, tenderness Extremities exam: PRESENT: full ROM. ABSENT: calf tenderness, clubbing, pedal edema Neurological exam: PRESENT: alert, awake, oriented to time, oriented to situation Results Laboratory Results: 10/19/18 08:10 10/19/18 08:10 10/17/18 15:35 Clean Catch Midstream Urine Culture - Final Streptococcus Pneumoniae Mixed Urogenital Domi 10/17/18 14:12 Blood Blood Culture - Final Streptococcus Pneumoniae 10/17/18 10/17/18 10/17/18 10:47 10:47 16:30 Creatine Kinase 120 132 CK-MB (CK-2) 0.45 Troponin I 0.027 NT-Pro-B Natriuret Pep 10/17/18 10/18/18 10/18/18 16:30 03:13 03:13 Creatine Kinase 133 CK-MB (CK-2) 0.44 0.43 Troponin I 0.025 0.017 NT-Pro-B Natriuret Pep 10/18/18 03:13 Creatine Kinase CK-MB (CK-2) Troponin I NT-Pro-B Natriuret Pep 288 Impressions: Chest X-Ray 10/17/18 14:48 IMPRESSION: NO ACUTE FINDINGS. Assessment and Plan - Diagnosis (1) Septic shock Is this a current diagnosis for this admission?: Yes Plan: Evidenced by leukocytosis tachycardia, hypotension, acute kidney injury and blood culture positive for strep pneumoniae. Patient switched from vancomycin and Zosyn to ceftriaxone since the organism is pansensitive. (2) Acute kidney injury Is this a current diagnosis for this admission?: Yes Plan: Cautiously hydrate her. (3) Colorectal cancer, stage IV Is this a current diagnosis for this admission?: Yes Plan: With metastasis to the liver and brain. Currently patient receiving whole brain radiation. (4) Hyponatremia Is this a current diagnosis for this admission?: Yes Plan: Resolved (5) Hyperkalemia Is this a current diagnosis for this admission?: Yes Plan: Resolved (6) Hypertension Qualifiers: Hypertension type: essential hypertension Qualified Code(s): I10 - Essential (primary) hypertension Is this a current diagnosis for this admission?: Yes Plan: Continue home medication (7) Hyperlipidemia Qualifiers: Hyperlipidemia type: unspecified Qualified Code(s): E78.5 - Hyperlipidemia, unspecified Is this a current diagnosis for this admission?: Yes Plan: Continue home medication (8) Corneal abrasion Qualifiers: Laterality: left Is this a current diagnosis for this admission?: Yes Plan: Topical erythromycin and patching exam will be day as recommended by sales department manager. (9) Tobacco dependence Is this a current diagnosis for this admission?: Yes Plan: Patient counseled and encouraged to quit smoking. (10) CODE STATUS Is this a current diagnosis for this admission?: Yes
[2018-10-20] MEDS: FLUCONAZOLE 100 MG TABLET PO SCH (18:09)
[2018-10-21] MEDS: NORMAL SALINE 1000 ML 1,000 ML IV PRN (02:30)
[2018-10-21] MEDS: CEFTRIAXONE 2 GM/D5W RTU 2 GM/50 ML RTUPB IV SCH ×2 (06:46→17:16)
[2018-10-21] MEDS: ERYTHROMYCIN 0.5% OPH OINTMENT 3.5 GM TUBE OS SCH ×4 (06:47→23:39)
--- NOTE | 2018-10-21 08:54 | PDOC PROGRESS REPORT ---
Subjective Progress Note for:: 10/21/18 Subjective:: Patient sleepy and remains a bit confused, but still tries to talk and answer questions. states that she did receive radiation yesterday. Patient states that she wants to go home. Reason For Visit: ACUTE KIDNEY INJURY Physical Exam Vital Signs: Temp Pulse Resp BP Pulse Ox 97.6 F 100 16 138/82 H 100 10/20/18 23:46 10/21/18 07:00 10/20/18 23:46 10/20/18 23:46 10/20/18 23:46 Intake & Output 10/20/18 10/21/18 10/22/18 06:59 06:59 06:59 Intake Total 1740 3602 50 Output Total 1850 2000 Balance -110 1602 50 Weight 51.2 kg 51.2 kg General appearance: PRESENT: thin Head exam: PRESENT: normocephalic Eye exam: PRESENT: other - Left eye unchanged. Remains patched. EOM are NOT intact.. ABSENT: EOMI Neck exam: ABSENT: tenderness Respiratory exam: PRESENT: clear to auscultation digna, unlabored Cardiovascular exam: PRESENT: RRR GI/Abdominal exam: PRESENT: soft. ABSENT: tenderness Extremities exam: ABSENT: pedal edema Neurological exam: PRESENT: other - No change from prior exam. Cranial nerves damaged by mass. Skin exam: PRESENT: normal color Results Laboratory Results: 10/19/18 08:10 10/19/18 08:10 10/17/18 15:35 Clean Catch Midstream Urine Culture - Final Streptococcus Pneumoniae Mixed Urogenital Domi 10/17/18 10/17/18 10/17/18 10:47 10:47 16:30 Creatine Kinase 120 132 CK-MB (CK-2) 0.45 Troponin I 0.027 NT-Pro-B Natriuret Pep 10/17/18 10/18/18 10/18/18 16:30 03:13 03:13 Creatine Kinase 133 CK-MB (CK-2) 0.44 0.43 Troponin I 0.025 0.017 NT-Pro-B Natriuret Pep 10/18/18 03:13 Creatine Kinase CK-MB (CK-2) Troponin I NT-Pro-B Natriuret Pep 288 Impressions: Chest X-Ray 10/17/18 14:48 IMPRESSION: NO ACUTE FINDINGS. Assessment & Plan - Diagnosis (1) Brain metastases Is this a current diagnosis for this admission?: Yes Plan: Continue steroids and radiation therapy. (2) Rectal cancer Is this a current diagnosis for this admission?: Yes (3) Streptococcal sepsis Is this a current diagnosis for this admission?: Yes Plan: Remains on antibiotic. Repeat Blood cultures are still pending, but are NGTD. (4) Corneal abrasion, left Qualifiers: Qualified Code(s): S05.02XA - Injury of conjunctiva and corneal abrasion without foreign body, left eye, initial encounter Is this a current diagnosis for this admission?: Yes - Plan Summary Plan Summary: I did discuss going home with Hospice services again today. They were more receptive to this plan. She would still like to finish brain radiation if possible. Dr. Velasquez following for rectal wound care. Due to the infection, continued wounds, and performance status, I have explained that we will not be able to start ay systemic therapy. She is very appropriate for Hospice and if she is able to improve, then further treatment may be considered at a later time.
--- NOTE | 2018-10-21 14:02 | PDOC PROGRESS REPORT ---
Subjective Subjective:: 57 y/o F with metastatic rectal cancer. She reports feeling better today. She is awake and conversive. She ate portions of a regular diet today. She denies CP, SOB, N/V, F/C, abdominal pain. She does report fatigue and malaise. She is at times forgetful. Reason For Visit: ACUTE KIDNEY INJURY Physical Exam Vital Signs: Temp Pulse Resp BP Pulse Ox 97.5 F 110 H 16 122/85 100 10/21/18 12:29 10/21/18 12:29 10/21/18 12:29 10/21/18 12:29 10/21/18 12:29 Intake & Output 10/20/18 10/21/18 10/22/18 06:59 06:59 06:59 Intake Total 1740 3602 250 Output Total 1850 2000 700 Balance -110 1602 -450 Weight 51.2 kg 51.2 kg Exam: General appearance: PRESENT: cooperative Head exam: PRESENT: atraumatic Eye exam: PRESENT: other - left eye taped shut Mouth exam: PRESENT: moist, neck supple Neck exam: ABSENT: meningismus, tenderness, thyromegaly, tracheal deviation Respiratory exam: PRESENT: clear to auscultation digna, unlabored. ABSENT: chest wall tenderness, tachypnea, wheezes Cardiovascular exam: PRESENT: RRR Vascular exam: PRESENT: normal capillary refill. ABSENT: pallor GI/Abdominal exam: PRESENT: soft, other - colostomy pink and productive. ABSENT: distended, tenderness Rectal exam: PRESENT: other - perineal wound stable, without signs of infection, granulation present in the base. Neurological exam: PRESENT: alert, awake Psychiatric exam: ABSENT: agitated, anxious Skin exam: ABSENT: cyanosis, erythema, jaundice Results Laboratory Results: 10/19/18 08:10 10/19/18 08:10 10/17/18 15:35 Clean Catch Midstream Urine Culture - Final Streptococcus Pneumoniae Mixed Urogenital Domi 10/17/18 10/17/18 10/17/18 10:47 10:47 16:30 Creatine Kinase 120 132 CK-MB (CK-2) 0.45 Troponin I 0.027 NT-Pro-B Natriuret Pep 10/17/18 10/18/18 10/18/18 16:30 03:13 03:13 Creatine Kinase 133 CK-MB (CK-2) 0.44 0.43 Troponin I 0.025 0.017 NT-Pro-B Natriuret Pep 10/18/18 03:13 Creatine Kinase CK-MB (CK-2) Troponin I NT-Pro-B Natriuret Pep 288 Impressions: Chest X-Ray 10/17/18 14:48 IMPRESSION: NO ACUTE FINDINGS. Assessment & Plan - Diagnosis (1) Open wound of perineum Is this a current diagnosis for this admission?: Yes (2) Rectal cancer Is this a current diagnosis for this admission?: Yes (3) Bacteremia Is this a current diagnosis for this admission?: Yes - Plan Summary Plan Summary: 57 y/o F with an open wound of the perineum. Cont with Santyl dressings for now. Cont medical management. Pt and to decide on Wound VAC continuation vs dressing changes at discharge. Pt with bacteremia (Strep pneumoniae). This is likely due to an upper respiratory/oropharyngeal/occular infection or possibly UTI. At this time it is felt unlikely related to the pt's mediport. However if her becteremia persists, she may require removal of her port with an alternate IV site temporarily. Repeat blood culture through port are still pending. environmental services project manager to help arrange DME.
[2018-10-21] MEDS ORDERED: HYDROCOD/ACETAMIN 7.5-325 MG/15 ML ORAL SOLN UDCUP PO PRN (14:03)
--- NOTE | 2018-10-21 15:00 | PDOC PROGRESS REPORT ---
Subjective Progress Note for:: 10/21/18 Subjective:: I seen patient propped up in bed. She is awake alert and oriented. Patient is today more conversant. She reports feeling better. When I saw her she was drinking protein supplements. She does not have any nausea or vomiting. Reason For Visit: ACUTE KIDNEY INJURY Physical Exam Vital Signs: Temp Pulse Resp BP Pulse Ox 97.5 F 110 H 16 122/85 100 10/21/18 12:29 10/21/18 12:29 10/21/18 12:29 10/21/18 12:29 10/21/18 12:29 Intake & Output 10/20/18 10/21/18 10/22/18 06:59 06:59 06:59 Intake Total 1740 3602 250 Output Total 1850 2000 700 Balance -110 1602 -450 Weight 51.2 kg 51.2 kg General appearance: PRESENT: no acute distress, thin Neck exam: ABSENT: carotid bruit, JVD, lymphadenopathy, thyromegaly Respiratory exam: PRESENT: clear to auscultation digna. ABSENT: rales, rhonchi, wheezes Cardiovascular exam: PRESENT: RRR. ABSENT: diastolic murmur, rubs, systolic murmur GI/Abdominal exam: PRESENT: normal bowel sounds, soft. ABSENT: distended, guarding, mass, organolmegaly, rebound, tenderness Neurological exam: PRESENT: alert, awake, oriented to time, oriented to situa tion Results Laboratory Results: 10/19/18 08:10 10/19/18 08:10 10/17/18 15:35 Clean Catch Midstream Urine Culture - Final Streptococcus Pneumoniae Mixed Urogenital Domi 10/17/18 10/17/18 10/17/18 10:47 10:47 16:30 Creatine Kinase 120 132 CK-MB (CK-2) 0.45 Troponin I 0.027 NT-Pro-B Natriuret Pep 10/17/18 10/18/18 10/18/18 16:30 03:13 03:13 Creatine Kinase 133 CK-MB (CK-2) 0.44 0.43 Troponin I 0.025 0.017 NT-Pro-B Natriuret Pep 10/18/18 03:13 Creatine Kinase CK-MB (CK-2) Troponin I NT-Pro-B Natriuret Pep 288 Impressions: Chest X-Ray 10/17/18 14:48 IMPRESSION: NO ACUTE FINDINGS. Assessment and Plan - Diagnosis (1) Septic shock Is this a current diagnosis for this admission?: Yes Plan: Evidenced by leukocytosis tachycardia, hypotension, acute kidney injury and blood culture positive for strep pneumoniae. Patient switched from vancomycin and Zosyn to ceftriaxone since the organism is pansensitive. (2) Acute kidney injury Is this a current diagnosis for this admission?: Yes Plan: Cautiously hydrate her. (3) Colorectal cancer, stage IV Is this a current diagnosis for this admission?: Yes Plan: With metastasis to the liver and brain. Currently patient receiving whole brain radiation. (4) Hyponatremia Is this a current diagnosis for this admission?: Yes Plan: Resolved (5) Hyperkalemia Is this a current diagnosis for this admission?: Yes Plan: Resolved (6) Hypertension Qualifiers: Hypertension type: essential hypertension Qualified Code(s): I10 - Essential (primary) hypertension Is this a current diagnosis for this admission?: Yes Plan: Continue home medication (7) Hyperlipidemia Qualifiers: Hyperlipidemia type: unspecified Qualified Code(s): E78.5 - Hyperlipidemia, unspecified Is this a current diagnosis for this admission?: Yes Plan: Continue home medication (8) Corneal abrasion Qualifiers: Laterality: left Is this a current diagnosis for this admission?: Yes Plan: Topical erythromycin and patching exam will be day as recommended by reed polisher. (9) Tobacco dependence Is this a current diagnosis for this admission?: Yes Plan: Patient counseled and encouraged to quit smoking. (10) CODE STATUS Is this a current diagnosis for this admission?: Yes Plan: Currently patient is full code. Dr. Monroy has discussed at length the option of hospice with her and the patient herself and they opted for full code but opted out of PEG placement.
[2018-10-21] MEDS: ENOXAPARIN SODIUM INJ 30 MG/0.3 ML DISP.SYRIN SUBCUT SCH (16:41)
[2018-10-21] MEDS: ASPIRIN 81 MG TABLET, ENT COATED PO SCH (16:42)
[2018-10-21] MEDS: DOCUSATE SODIUM 100 MG CAPSULE PO SCH ×2 (16:42→17:09)
[2018-10-21] MEDS: FAMOTIDINE INJ/PF 20 MG/2 ML SDV IV SCH ×2 (16:42→22:37)
[2018-10-21] MEDS: COLLAGENASE CLOSTRIDIUM HIST. OINT 30 GM TOP SCH ×2 (16:43→22:38)
[2018-10-21] MEDS: DEXAMETHASONE SOD PHOSPHATE INJ 4 MG/1 ML VIAL IV SCH ×2 (16:49→22:37)
[2018-10-21] MEDS: FLUCONAZOLE 100 MG TABLET PO SCH (17:14)
[2018-10-21] MEDS: MORPHINE SULFATE 10 MG/ML INJ IV PRN (22:38)
[2018-10-22] MEDS: CEFTRIAXONE 2 GM/D5W RTU 2 GM/50 ML RTUPB IV SCH ×2 (05:47→17:42)
[2018-10-22] MEDS: ERYTHROMYCIN 0.5% OPH OINTMENT 3.5 GM TUBE OS SCH ×3 (05:47→17:43)
--- NOTE | 2018-10-22 08:03 | PDOC PROGRESS REPORT ---
Subjective Progress Note for:: 10/22/18 Subjective:: 57 y/o F with metastatic rectal cancer. She reports feeling better today. She is awake and conversive. She ate portions of a regular diet today. She denies CP, SOB, N/V, F/C, abdominal pain. She does report fatigue and malaise. She is at times forgetful. Reason For Visit: ACUTE KIDNEY INJURY Physical Exam Vital Signs: Temp Pulse Resp BP Pulse Ox 97.4 F 100 16 118/88 H 100 10/21/18 23:39 10/22/18 02:00 10/21/18 23:39 10/21/18 23:39 10/21/18 23:39 Intake & Output 10/21/18 10/22/18 10/23/18 06:59 06:59 06:59 Intake Total 3602 1190 50 Output Total 19990 Balance 1602 -860 50 Weight 51.2 kg 51.2 kg Exam: General appearance: PRESENT: cooperative Head exam: PRESENT: atraumatic Eye exam: PRESENT: other - left eye taped shut Mouth exam: PRESENT: moist, neck supple Neck exam: ABSENT: meningismus, tenderness, thyromegaly, tracheal deviation Respiratory exam: PRESENT: clear to auscultation digna, unlabored. ABSENT: chest wall tenderness, tachypnea, wheezes Cardiovascular exam: PRESENT: RRR Vascular exam: PRESENT: normal capillary refill. ABSENT: pallor GI/Abdominal exam: PRESENT: soft, other - colostomy pink and productive. ABSENT: distended, tenderness Rectal exam: PRESENT: other - perineal wound stable, without signs of infection, granulation present in the base. Neurological exam: PRESENT: alert, awake Psychiatric exam: ABSENT: agitated, anxious Skin exam: ABSENT: cyanosis, erythema, jaundice Results Laboratory Results: 10/19/18 08:10 10/19/18 08:10 10/17/18 10/17/18 10/17/18 10:47 10:47 16:30 Creatine Kinase 120 132 CK-MB (CK-2) 0.45 Troponin I 0.027 NT-Pro-B Natriuret Pep 10/17/18 10/18/18 10/18/18 16:30 03:13 03:13 Creatine Kinase 133 CK-MB (CK-2) 0.44 0.43 Troponin I 0.025 0.017 NT-Pro-B Natriuret Pep 10/18/18 03:13 Creatine Kinase CK-MB (CK-2) Troponin I NT-Pro-B Natriuret Pep 288 Impressions: Chest X-Ray 10/17/18 14:48 IMPRESSION: NO ACUTE FINDINGS. Assessment & Plan - Diagnosis (1) Open wound of perineum Is this a current diagnosis for this admission?: Yes (2) Rectal cancer Is this a current diagnosis for this admission?: Yes (3) Bacteremia Is this a current diagnosis for this admission?: Yes - Plan Summary Plan Summary: 57 y/o F with an open wound of the perineum. Cont with Santyl dressings for now. Cont medical management. Pt and to decide on Wound VAC continuation vs dressing changes at discharge. Pt with bacteremia (Strep pneumoniae). This is likely due to an upper respiratory/oropharyngeal/occular infection or possibly UTI. At this time it is felt unlikely related to the pt's mediport. However if her becteremia persists, she may require removal of her port with an alternate IV site temporarily. Repeat blood culture through port are still pending. field services analyst to help arrange DME.
[2018-10-22] MEDS ORDERED: DEXAMETHASONE 4 MG TABLET PO SCH (09:15)
--- NOTE | 2018-10-22 09:20 | PDOC PROGRESS REPORT ---
Subjective Progress Note for:: 10/22/18 Subjective:: Patient states she is having memory problems. She did receive radiation yesterday. She is able to eat, but does not like choice of food. ROS: No dyspnea. No pain. Reason For Visit: ACUTE KIDNEY INJURY Physical Exam Vital Signs: Temp Pulse Resp BP Pulse Ox 97.4 F 115 H 20 115/79 100 10/22/18 08:00 10/22/18 08:00 10/22/18 08:00 10/22/18 08:00 10/22/18 08:00 Intake & Output 10/21/18 10/22/18 10/23/18 06:59 06:59 06:59 Intake Total 3602 1190 50 Output Total 1999 2049 Balance 1602 -860 50 Weight 51.2 kg 51.2 kg General appearance: PRESENT: no acute distress, thin, well-developed Head exam: PRESENT: normocephalic Respiratory exam: PRESENT: unlabored GI/Abdominal exam: PRESENT: soft. ABSENT: tenderness Neurological exam: PRESENT: other - No changed to facial droop and eye deviation. Psychiatric exam: PRESENT: appropriate affect Skin exam: PRESENT: normal color Results Laboratory Results: 10/19/18 08:10 10/19/18 08:10 10/17/18 10/17/18 10/17/18 10:47 10:47 16:30 Creatine Kinase 120 132 CK-MB (CK-2) 0.45 Troponin I 0.027 NT-Pro-B Natriuret Pep 10/17/18 10/18/18 10/18/18 16:30 03:13 03:13 Creatine Kinase 133 CK-MB (CK-2) 0.44 0.43 Troponin I 0.025 0.017 NT-Pro-B Natriuret Pep 10/18/18 03:13 Creatine Kinase CK-MB (CK-2) Troponin I NT-Pro-B Natriuret Pep 288 Impressions: Chest X-Ray 10/17/18 14:48 IMPRESSION: NO ACUTE FINDINGS. Assessment & Plan - Diagnosis (1) Brain metastases Is this a current diagnosis for this admission?: Yes Plan: SHe will complete her brain radiation tomorrow. Plans are to send her home with Hospice services after this. I will change Dexamethasone to PO. (2) Rectal cancer Is this a current diagnosis for this admission?: Yes Plan: Although she is not currently a candidate for further aggressive treatment, patient and family would like to consider this option if she improves over the next few weeks. She understands that she may still receive some physical therapy and wound care on Hospice. She may also stop Hospice in the future, if she improves. (3) Streptococcal sepsis Is this a current diagnosis for this admission?: Yes Plan: She remains on IV antibiotics. Further blood cultures are NGTD. Will change to PO ABX on discharge. (4) Corneal abrasion, left Qualifiers: Qualified Code(s): S05.02XA - Injury of conjunctiva and corneal abrasion without foreign body, left eye, initial encounter Is this a current diagnosis for this admission?: Yes
[2018-10-22] MEDS: COLLAGENASE CLOSTRIDIUM HIST. OINT 30 GM TOP SCH ×2 (09:58→22:47)
[2018-10-22] MEDS: ENOXAPARIN SODIUM INJ 30 MG/0.3 ML DISP.SYRIN SUBCUT SCH (10:19)
[2018-10-22] MEDS: DOCUSATE SODIUM 100 MG CAPSULE PO SCH ×2 (10:28→17:29)
[2018-10-22] MEDS: FAMOTIDINE 20 MG TABLET PO SCH ×2 (10:29→22:47)
--- NOTE | 2018-10-22 14:56 | PDOC PROGRESS REPORT ---
Subjective Progress Note for:: 10/22/18 Subjective:: Patient seen lying back and she is sleeping. Her reports patient has right lower extremity swelling. I explained to him that the swelling could be due to blood clots or encroachment of lymph nodes on the lymph basis since the swelling is unilateral. Bilateral venous Dopplers negative for DVT. Reason For Visit: ACUTE KIDNEY INJURY Physical Exam Vital Signs: Temp Pulse Resp BP Pulse Ox 97.5 F 113 H 22 H 123/85 99 10/22/18 11:24 10/22/18 11:24 10/22/18 11:24 10/22/18 11:24 10/22/18 11:24 Intake & Output 10/21/18 10/22/18 10/23/18 06:59 06:59 06:59 Intake Total 3602 1190 50 Output Total 1999 2049 Balance 1602 -860 50 Weight 51.2 kg 51.2 kg General appearance: PRESENT: no acute distress, thin Respiratory exam: PRESENT: clear to auscultation digna. ABSENT: rales, rhonchi, wheezes Cardiovascular exam: PRESENT: RRR. ABSENT: diastolic murmur, rubs, systolic murmur Extremities exam: PRESENT: other - Unilateral right lower extremity swelling. Results Laboratory Results: 10/19/18 08:10 10/19/18 08:10 10/17/18 10/17/18 10/17/18 10:47 10:47 16:30 Creatine Kinase 120 132 CK-MB (CK-2) 0.45 Troponin I 0.027 NT-Pro-B Natriuret Pep 10/17/18 10/18/18 10/18/18 16:30 03:13 03:13 Creatine Kinase 133 CK-MB (CK-2) 0.44 0.43 Troponin I 0.025 0.017 NT-Pro-B Natriuret Pep 10/18/18 03:13 Creatine Kinase CK-MB (CK-2) Troponin I NT-Pro-B Natriuret Pep 288 Impressions: Chest X-Ray 10/17/18 14:48 IMPRESSION: NO ACUTE FINDINGS. Assessment and Plan - Diagnosis (1) Swelling of right lower extremity Is this a current diagnosis for this admission?: Yes Plan: Etiology unclear at this point. Possible lymphoid encroachment of lymphatic vessel. Venous Doppler is negative for DVT. (2) Septic shock Is this a current diagnosis for this admission?: Yes Plan: Evidenced by leukocytosis tachycardia, hypotension, acute kidney injury and blood culture positive for strep pneumoniae. Patient switched from vancomycin and Zosyn to ceftriaxone since the organism is pansensitive. (3) Acute kidney injury Is this a current diagnosis for this admission?: Yes Plan: Cautiously hydrate her. (4) Colorectal cancer, stage IV Is this a current diagnosis for this admission?: Yes Plan: With metastasis to the liver and brain. Currently patient receiving whole brain radiation. (5) Hyponatremia Is this a current diagnosis for this admission?: Yes Plan: Resolved (6) Hyperkalemia Is this a current diagnosis for this admission?: Yes Plan: Resolved (7) Hypertension Qualifiers: Hypertension type: essential hypertension Qualified Code(s): I10 - Essential (primary) hypertension Is this a current diagnosis for this admission?: Yes Plan: Continue home medication (8) Hyperlipidemia Qualifiers: Hyperlipidemia type: unspecified Qualified Code(s): E78.5 - Hyperlipidemia, unspecified Is this a current diagnosis for this admission?: Yes Plan: Continue home medication (9) Corneal abrasion Qualifiers: Laterality: left Is this a current diagnosis for this admission?: Yes Plan: Topical erythromycin and patching exam will be day as recommended by cyber defense incident responder. (10) Tobacco dependence Is this a current diagnosis for this admission?: Yes Plan: Patient counseled and encouraged to quit smoking. (11) CODE STATUS Is this a current diagnosis for this admission?: Yes Plan: Currently patient is full code. Dr. Monroy has discussed at length the option of hospice with her and the patient herself and they opted for full code but opted out of PEG placement.
[2018-10-22] MEDS: FLUCONAZOLE 100 MG TABLET PO SCH (17:54)
[2018-10-22] MEDS: FLUCONAZOLE 100 MG in CONTAINER,EMPTY 1 EACH IV SCH (20:13)
[2018-10-23] MEDS: ERYTHROMYCIN 0.5% OPH OINTMENT 3.5 GM TUBE OS SCH ×5 (00:28→23:05)
[2018-10-23] MEDS: CEFTRIAXONE 2 GM/D5W RTU 2 GM/50 ML RTUPB IV SCH ×2 (06:46→17:00)
[2018-10-23] MEDS: FAMOTIDINE 20 MG TABLET PO SCH ×2 (10:15→21:15)
[2018-10-23] MEDS: DOCUSATE SODIUM 100 MG CAPSULE PO SCH ×2 (10:15→17:02)
[2018-10-23] MEDS: COLLAGENASE CLOSTRIDIUM HIST. OINT 30 GM TOP SCH ×2 (10:16→21:15)
[2018-10-23] MEDS: ENOXAPARIN SODIUM INJ 30 MG/0.3 ML DISP.SYRIN SUBCUT SCH (10:21)
[2018-10-23 10:50] LABS: HEMATOCRIT 32.4 % (36.0-47.0); HEMOGLOBIN 10.4 g/dL (12.0-15.5); MEAN CORPUSCULAR HEMOGLOBIN 27.5 pg (27.0-33.4); MEAN CORPUSCULAR HGB CONC 32.3 g/dL (32.0-36.0); MEAN CORPUSCULAR VOLUME 85 fl (80-97); PLATELET COUNT 243 10^3/uL (150-450); RED BLOOD COUNT 3.79 10^6/uL (3.72-5.28); WHITE BLOOD COUNT 11.4 10^3/uL (4.0-10.5)
[2018-10-23 11:13] LABS: ALANINE AMINOTRANSFERASE 274 U/L (9-52); ALBUMIN 2.3 g/dL (3.5-5.0); ALKALINE PHOSPHATASE 455 U/L (38-126); ANION GAP 9 (5-19); ASPARTATE AMINO TRANSFERASE 297 U/L (14-36); BILIRUBIN,DIRECT 0.6 mg/dL (0.0-0.4); BILIRUBIN,TOTAL 0.6 mg/dL (0.2-1.3); BLOOD UREA NITROGEN 40 mg/dL (7-20); CALCIUM 8.9 mg/dL (8.4-10.2); CARBON DIOXIDE 16 mmol/L (22-30); CHLORIDE 112 mmol/L (98-107); GLUCOSE 102 mg/dL (75-110); POTASSIUM 4.5 mmol/L (3.6-5.0); SODIUM 136.6 mmol/L (137-145); TOTAL PROTEIN 5.2 g/dL (6.3-8.2)
[2018-10-23 11:26] LABS: ABSOLUTE LYMPHOCYTES# (MANUAL) 0.1 10^3/uL (0.5-4.7); ABSOLUTE MONOCYTES # (MANUAL) 0.5 10^3/uL (0.1-1.4); ABSOLUTE NEUTROPHILS# (MANUAL) 10.8 10^3/uL (1.7-8.2); BAND NEUTROPHILS % (MANUAL) 1 % (3-5); BASOPHILS % (MANUAL) 0 % (0-2); EOSINOPHILS % (MANUAL) 0 % (0-6); LYMPHOCYTES % (MANUAL) 1 % (13-45); MONOCYTES % (MANUAL) 4 % (3-13); SEGMENTED NEUTROPHILS % (MAN) 94 % (42-78); TOTAL CELLS COUNTED 100; TOXIC GRANULATION SLIGHT
[2018-10-23 11:27] LABS: ANISOCYTOSIS 1+; HYPOCHROMASIA SLIGHT; OVALOCYTES SLIGHT; PLATELET COMMENT ADEQUATE; PLATELET LARGE PRESENT; POLYCHROMASIA SLIGHT
--- NOTE | 2018-10-23 13:04 | XCELERA REPORT ---
[address] [facility] [address] Lower Extremity Venous Evaluation Procedure: Color flow and duplex imaging bilaterally of the veins of the lower extremities as well as the Common Femoral veins. Right Sided Venous Evaluation Normal vessel filling wall to wall, compression and augmentation as well as Colour flow down to the infrageniculate veins. Left Sided Venous Evaluation Normal vessel filling wall to wall, compression and augmentation as well as Colour flow down to the infrageniculate veins. Interpretation Summary No duplex evidence of DVT or obstruction in the bilateral lower extremities. Name: RAY BURGESS Age: 57 yrs Gender: Female : [id number] Patient Status: Inpatient Patient Location: [address] [place] [address] Study Date: 10/22/2018 01:37 PM Reason For Study: dvt Ordering Physician: MICKEY HILLS Performed By: Janessa Portillo : MICKEY HILLS > Kalen Gilbert
[2018-10-23] MEDS: MORPHINE SULFATE 10 MG/ML INJ IV PRN ×2 (13:28→20:56)
--- NOTE | 2018-10-23 14:22 | PDOC PROGRESS REPORT ---
Subjective Progress Note for:: 10/23/18 Subjective:: Patient remains talkative today. She is greatly concerned about the swelling in her legs. This started yesterday. She refused her physical therapy yesterday and also refused her radiation therapy yesterday. Reason For Visit: ACUTE KIDNEY INJURY Physical Exam Vital Signs: Temp Pulse Resp BP Pulse Ox 98.3 F 107 H 15 114/75 100 10/23/18 07:46 10/23/18 07:46 10/23/18 07:46 10/23/18 07:46 10/23/18 07:46 Intake & Output 10/22/18 10/23/18 10/24/18 06:59 06:59 06:59 Intake Total 1190 1110 50 Output Total 2050 1100 Balance -860 10 50 Weight 51.2 kg 51.2 kg General appearance: PRESENT: well-developed, well-nourished Eye exam: PRESENT: other - No change from previous. Respiratory exam: PRESENT: clear to auscultation digna, unlabored Cardiovascular exam: PRESENT: RRR Extremities exam: PRESENT: other - 3+ edema throughout both lower extremities. Musculoskeletal exam: ABSENT: ambulatory Neurological exam: PRESENT: alert, awake Psychiatric exam: PRESENT: appropriate affect Results Laboratory Results: 10/23/18 10:37 10/23/18 10:37 10/23/18 10/23/18 10:37 10:37 WBC 11.4 H RBC 3.79 Hgb 10.4 L Hct 32.4 L MCV 85 MCH 27.5 MCHC 32.3 RDW 17.0 H Plt Count 243 Seg Neutrophils % Not Reportable Lymphocytes % Not Reportable Monocytes % Not Reportable Eosinophils % Not Reportable Basophils % Not Reportable Absolute Neutrophils Not Reportable Absolute Lymphocytes Not Reportable Absolute Monocytes Not Reportable Absolute Eosinophils Not Reportable Absolute Basophils Not Reportable Sodium 136.6 L Potassium 4.5 Chloride 112 H Carbon Dioxide 16 L Anion Gap 9 BUN 40 H Creatinine 1.08 Est GFR ( Amer) > 60 Est GFR (Non-Af Amer) 53 L Glucose 102 Calcium 8.9 Total Bilirubin 0.6 AST 297 H ALT 274 H Alkaline Phosphatase 455 H Total Protein 5.2 L Albumin 2.3 L 10/17/18 10/17/18 10/17/18 10:47 10:47 16:30 Creatine Kinase 120 132 CK-MB (CK-2) 0.45 Troponin I 0.027 NT-Pro-B Natriuret Pep 10/17/18 10/18/18 10/18/18 16:30 03:13 03:13 Creatine Kinase 133 CK-MB (CK-2) 0.44 0.43 Troponin I 0.025 0.017 NT-Pro-B Natriuret Pep 10/18/18 03:13 Creatine Kinase CK-MB (CK-2) Troponin I NT-Pro-B Natriuret Pep 288 Impressions: Chest X-Ray 10/17/18 14:48 IMPRESSION: NO ACUTE FINDINGS. Assessment & Plan - Diagnosis (1) Brain metastases Is this a current diagnosis for this admission?: Yes Plan: She has 2 more radiation treatments until she will complete all of her planned treatment. (2) Rectal cancer Is this a current diagnosis for this admission?: Yes Plan: She is not strong enough currently for chemo or other treatment. Her LFTs are slowly rising, which concerns me. We discussed the fact today that she may not become strong enough for any treatment. (3) Streptococcal sepsis Is this a current diagnosis for this admission?: Yes Plan: Resolved. Most recent Blood cultures have been negative. (4) Corneal abrasion, left Qualifiers: Qualified Code(s): S05.02XA - Injury of conjunctiva and corneal abrasion without foreign body, left eye, initial encounter Is this a current diagnosis for this admission?: Yes - Plan Summary Plan Summary: We discussed the fact that the swelling in her legs is most likely due to protein malnutrition. USs were negative bilaterally. She has declined a feeding tube. She has not been able to walk for a week. I have explained that everything now is up to her body. She needs to be stronger for any further treatment and if she is unable to eat and her performance status continues to decline, then we will not be able to treat the cancer. However, we are still hoping the brain mets respond to treatment and she improves.
--- NOTE | 2018-10-23 15:57 | PDOC PROGRESS REPORT ---
Subjective Progress Note for:: 10/23/18 Subjective:: Patient is quietly sleeping propped up in bed. She refused brain radiation therapy for the second time today. Her agreed to put her under hospice care. She is potential discharge for tomorrow. Reason For Visit: ACUTE KIDNEY INJURY Physical Exam Vital Signs: Temp Pulse Resp BP Pulse Ox 98.3 F 107 H 15 114/75 100 10/23/18 07:46 10/23/18 07:46 10/23/18 07:46 10/23/18 07:46 10/23/18 07:46 Intake & Output 10/22/18 10/23/18 10/24/18 06:59 06:59 06:59 Intake Total 1190 1110 50 Output Total 2050 1100 Balance -860 10 50 Weight 51.2 kg 51.2 kg General appearance: PRESENT: no acute distress Respiratory exam: PRESENT: clear to auscultation digna. ABSENT: rales, rhonchi, wheezes Results Laboratory Results: 10/23/18 10:37 10/23/18 10:37 10/23/18 10/23/18 10:37 10:37 WBC 11.4 H RBC 3.79 Hgb 10.4 L Hct 32.4 L MCV 85 MCH 27.5 MCHC 32.3 RDW 17.0 H Plt Count 243 Seg Neutrophils % Not Reportable Lymphocytes % Not Reportable Monocytes % Not Reportable Eosinophils % Not Reportable Basophils % Not Reportable Absolute Neutrophils Not Reportable Absolute Lymphocytes Not Reportable Absolute Monocytes Not Reportable Absolute Eosinophils Not Reportable Absolute Basophils Not Reportable Sodium 136.6 L Potassium 4.5 Chloride 112 H Carbon Dioxide 16 L Anion Gap 9 BUN 40 H Creatinine 1.08 Est GFR ( Amer) > 60 Est GFR (Non-Af Amer) 53 L Glucose 102 Calcium 8.9 Total Bilirubin 0.6 AST 297 H ALT 274 H Alkaline Phosphatase 455 H Total Protein 5.2 L Albumin 2.3 L 10/17/18 10/17/18 10/17/18 10:47 10:47 16:30 Creatine Kinase 120 132 CK-MB (CK-2) 0.45 Troponin I 0.027 NT-Pro-B Natriuret Pep 10/17/18 10/18/18 10/18/18 16:30 03:13 03:13 Creatine Kinase 133 CK-MB (CK-2) 0.44 0.43 Troponin I 0.025 0.017 NT-Pro-B Natriuret Pep 10/18/18 03:13 Creatine Kinase CK-MB (CK-2) Troponin I NT-Pro-B Natriuret Pep 288 Impressions: Chest X-Ray 10/17/18 14:48 IMPRESSION: NO ACUTE FINDINGS. Assessment and Plan - Diagnosis (1) Swelling of right lower extremity Is this a current diagnosis for this admission?: Yes Plan: Etiology unclear at this point. Possible lymphoid encroachment of lymphatic vessel. Venous Doppler is negative for DVT. (2) Septic shock Is this a current diagnosis for this admission?: Yes Plan: Evidenced by leukocytosis tachycardia, hypotension, acute kidney injury and blood culture positive for strep pneumoniae. Patient switched from vancomycin and Zosyn to ceftriaxone since the organism is pansensitive. (3) Acute kidney injury Is this a current diagnosis for this admission?: Yes Plan: Cautiously hydrate her. (4) Colorectal cancer, stage IV Is this a current diagnosis for this admission?: Yes Plan: With metastasis to the liver and brain. Currently patient receiving whole brain radiation. (5) Hyponatremia Is this a current diagnosis for this admission?: Yes Plan: Resolved (6) Hyperkalemia Is this a current diagnosis for this admission?: Yes Plan: Resolved (7) Hypertension Qualifiers: Hypertension type: essential hypertension Qualified Code(s): I10 - Essential (primary) hypertension Is this a current diagnosis for this admission?: Yes Plan: Continue home medication (8) Hyperlipidemia Qualifiers: Hyperlipidemia type: unspecified Qualified Code(s): E78.5 - Hyperlipidemia, unspecified Is this a current diagnosis for this admission?: Yes Plan: Continue home medication (9) Corneal abrasion Qualifiers: Laterality: left Is this a current diagnosis for this admission?: Yes Plan: Topical erythromycin and patching exam will be day as recommended by vice president marketing & development. (10) Tobacco dependence Is this a current diagnosis for this admission?: Yes Plan: Patient counseled and encouraged to quit smoking. (11) CODE STATUS Is this a current diagnosis for this admission?: Yes Plan: Currently patient is full code. Dr. Monroy has discussed at length the option of hospice with her and the patient herself and they opted for full code but opted out of PEG placement.
[2018-10-23] MEDS: FLUCONAZOLE 100 MG in CONTAINER,EMPTY 1 EACH IV SCH (17:01)
--- NOTE | 2018-10-23 17:22 | PDOC PROGRESS REPORT ---
Subjective Subjective:: 57 y/o F with metastatic rectal cancer. She reports feeling better today. She is sleeping comfortably at the time of my visit. Nursing staff denies any CP, SOB, N/V, F/C, abdominal pain. She does continue to experience fatigue and malaise. She is at times forgetful. Reason For Visit: ACUTE KIDNEY INJURY Physical Exam Vital Signs: Temp Pulse Resp BP Pulse Ox 97.4 F 116 H 14 115/74 100 10/23/18 16:00 10/23/18 16:00 10/23/18 16:00 10/23/18 16:00 10/23/18 16:00 Intake & Output 10/22/18 10/23/18 10/24/18 06:59 06:59 06:59 Intake Total 1190 1110 50 Output Total 2050 1100 Balance -860 10 50 Weight 51.2 kg 51.2 kg Exam: General appearance: PRESENT: cooperative Head exam: PRESENT: atraumatic Eye exam: PRESENT: other - left eye taped shut Mouth exam: PRESENT: moist, neck supple Neck exam: ABSENT: meningismus, tenderness, thyromegaly, tracheal deviation Respiratory exam: PRESENT: clear to auscultation digna, unlabored. ABSENT: chest wall tenderness, tachypnea, wheezes Cardiovascular exam: PRESENT: RRR Vascular exam: PRESENT: normal capillary refill. ABSENT: pallor GI/Abdominal exam: PRESENT: soft, other - colostomy pink and productive. ABSENT: distended, tenderness Rectal exam: PRESENT: other - perineal wound stable, without signs of infection, granulation present in the base. Neurological exam: PRESENT: alert, awake Psychiatric exam: ABSENT: agitated, anxious Skin exam: ABSENT: cyanosis, erythema, jaundice Results Laboratory Results: 10/23/18 10:37 10/23/18 10:37 10/23/18 10/23/18 10:37 10:37 WBC 11.4 H RBC 3.79 Hgb 10.4 L Hct 32.4 L MCV 85 MCH 27.5 MCHC 32.3 RDW 17.0 H Plt Count 243 Seg Neutrophils % Not Reportable Lymphocytes % Not Reportable Monocytes % Not Reportable Eosinophils % Not Reportable Basophils % Not Reportable Absolute Neutrophils Not Reportable Absolute Lymphocytes Not Reportable Absolute Monocytes Not Reportable Absolute Eosinophils Not Reportable Absolute Basophils Not Reportable Sodium 136.6 L Potassium 4.5 Chloride 112 H Carbon Dioxide 16 L Anion Gap 9 BUN 40 H Creatinine 1.08 Est GFR ( Amer) > 60 Est GFR (Non-Af Amer) 53 L Glucose 102 Calcium 8.9 Total Bilirubin 0.6 AST 297 H ALT 274 H Alkaline Phosphatase 455 H Total Protein 5.2 L Albumin 2.3 L 10/17/18 10/17/18 10/17/18 10:47 10:47 16:30 Creatine Kinase 120 132 CK-MB (CK-2) 0.45 Troponin I 0.027 NT-Pro-B Natriuret Pep 10/17/18 10/18/18 10/18/18 16:30 03:13 03:13 Creatine Kinase 133 CK-MB (CK-2) 0.44 0.43 Troponin I 0.025 0.017 NT-Pro-B Natriuret Pep 10/18/18 03:13 Creatine Kinase CK-MB (CK-2) Troponin I NT-Pro-B Natriuret Pep 288 Impressions: Chest X-Ray 10/17/18 14:48 IMPRESSION: NO ACUTE FINDINGS. Assessment & Plan - Diagnosis (1) Open wound of perineum Is this a current diagnosis for this admission?: Yes (2) Rectal cancer Is this a current diagnosis for this admission?: Yes (3) Bacteremia Is this a current diagnosis for this admission?: Yes - Plan Summary Plan Summary: 57 y/o F with an open wound of the perineum. Cont with Santyl dressings for now. Cont medical management. Pt and to decide on Wound VAC continuation vs dressing changes at discharge. Pt with bacteremia (Strep pneumoniae). This is likely due to an upper respiratory/oropharyngeal/occular infection or possibly UTI. At this time it is felt unlikely related to the pt's mediport. However if her becteremia persists, she may require removal of her port with an alternate IV site temporarily. Repeat blood culture through port is no growth at 72 hours. No plans for mediport removal at this time. volunteer services manager to help arrange DME.
[2018-10-24] MEDS: CEFTRIAXONE 2 GM/D5W RTU 2 GM/50 ML RTUPB IV SCH (05:20)
[2018-10-24] MEDS: ERYTHROMYCIN 0.5% OPH OINTMENT 3.5 GM TUBE OS SCH ×2 (05:20→14:18)
[2018-10-24] MEDS: COLLAGENASE CLOSTRIDIUM HIST. OINT 30 GM TOP SCH (10:30)
[2018-10-24] MEDS: ENOXAPARIN SODIUM INJ 30 MG/0.3 ML DISP.SYRIN SUBCUT SCH (10:31)
[2018-10-24] MEDS: DOCUSATE SODIUM 100 MG CAPSULE PO SCH (10:32)
[2018-10-24] MEDS: FAMOTIDINE 20 MG TABLET PO SCH (10:32)
[2018-10-24 11:23] VITALS: BP 109/80
--- NOTE | 2018-10-24 11:46 | PDOC PROGRESS REPORT ---
Subjective Progress Note for:: 10/24/18 Subjective:: 57 y/o F with metastatic rectal cancer. She reports feeling better today. She is awake and alert at the time of my visit. No CP, SOB, N/V, F/C, abdominal pain. She does continue to experience fatigue and malaise. She is at times forgetful. Her reports poor oral intake. Reason For Visit: ACUTE KIDNEY INJURY Physical Exam Vital Signs: Temp Pulse Resp BP Pulse Ox 98.0 F 117 H 16 109/80 100 10/24/18 11:22 10/24/18 11:22 10/24/18 11:22 10/24/18 11:22 10/24/18 11:22 Intake & Output 10/23/18 10/24/18 10/25/18 06:59 06:59 06:59 Intake Total 1110 820 Output Total 1100 905 Balance 10 -85 Weight 51.2 kg Exam: General appearance: PRESENT: cooperative Head exam: PRESENT: atraumatic Eye exam: PRESENT: other - left eye taped shut Mouth exam: PRESENT: moist, neck supple Neck exam: ABSENT: meningismus, tenderness, thyromegaly, tracheal deviation Respiratory exam: PRESENT: clear to auscultation digna, unlabored. ABSENT: chest wall tenderness, tachypnea, wheezes Cardiovascular exam: PRESENT: RRR Vascular exam: PRESENT: normal capillary refill. ABSENT: pallor GI/Abdominal exam: PRESENT: soft, other - colostomy pink and productive. ABSENT: distended, tenderness Rectal exam: PRESENT: other - perineal wound stable, without signs of infection, granulation present in the base. Neurological exam: PRESENT: alert, awake Psychiatric exam: ABSENT: agitated, anxious Skin exam: ABSENT: cyanosis, erythema, jaundice Results Laboratory Results: 10/23/18 10:37 10/23/18 10:37 10/17/18 10/17/18 10/17/18 10:47 10:47 16:30 Creatine Kinase 120 132 CK-MB (CK-2) 0.45 Troponin I 0.027 NT-Pro-B Natriuret Pep 10/17/18 10/18/18 10/18/18 16:30 03:13 03:13 Creatine Kinase 133 CK-MB (CK-2) 0.44 0.43 Troponin I 0.025 0.017 NT-Pro-B Natriuret Pep 10/18/18 03:13 Creatine Kinase CK-MB (CK-2) Troponin I NT-Pro-B Natriuret Pep 288 Impressions: Chest X-Ray 10/17/18 14:48 IMPRESSION: NO ACUTE FINDINGS. Assessment & Plan - Diagnosis (1) Open wound of perineum Is this a current diagnosis for this admission?: Yes (2) Rectal cancer Is this a current diagnosis for this admission?: Yes (3) Bacteremia Is this a current diagnosis for this admission?: Yes - Plan Summary Plan Summary: 57 y/o F with an open wound of the perineum. Cont with Santyl dressings qDay. Pt's prefers dressing changes to wound VAC at this time. Discontinue wound VAC. Pt with bacteremia (Strep pneumoniae). This is likely due to an upper respiratory/oropharyngeal/occular infection or possibly UTI. At this time it is felt unlikely related to the pt's mediport. However if her becteremia persists, she may require removal of her port with an alternate IV site temporarily. Repeat blood culture through port is no growth at 72 hours. No plans for medipo rt removal at this time. DME arranged.
[2018-10-24] MEDS: MORPHINE SULFATE 10 MG/ML INJ IV PRN (12:59)
--- NOTE | 2018-10-24 15:17 | PDOC DISCHARGE SUMMARY ---
General - Admit/Disc Date/PCP Admission Date/Primary Care Provider: 10/17/18 13:43 BHARGAVI JOSHUA MD Discharge Date: 10/24/18 - Discharge Diagnosis (1) Swelling of right lower extremity Is this a current diagnosis for this admission?: Yes (2) Septic shock Is this a current diagnosis for this admission?: Yes (3) Acute kidney injury Is this a current diagnosis for this admission?: Yes (4) Colorectal cancer, stage IV Is this a current diagnosis for this admission?: Yes (5) Hyponatremia Is this a current diagnosis for this admission?: Yes (6) Hyperkalemia Is this a current diagnosis for this admission?: Yes (7) Hypertension Is this a current diagnosis for this admission?: Yes (8) Hyperlipidemia Is this a current diagnosis for this admission?: Yes (9) Corneal abrasion Is this a current diagnosis for this admission?: Yes (10) Tobacco dependence Is this a current diagnosis for this admission?: Yes (11) CODE STATUS Is this a current diagnosis for this admission?: Yes - Additional Information Resuscitation Status: Full Code Home Medications: Aspirin [Ecotrin] 81 mg PO DAILY 10/17/18 Dexamethasone [Decadron 4 mg Tablet] 8 mg PO BID 10/17/18 Fluconazole [Diflucan] 200 mg PO DAILY 10/17/18 Garlic 1 each PO DAILY 10/17/18 Lisinopril 20 mg PO DAILY 10/17/18 Lovastatin [Altoprev] 20 mg PO QHS 10/17/18 Megestrol Acetate 40 mg PO DAILY 10/17/18 Tramadol HCl [Ultram] 50 mg PO Q6HP PRN 10/17/18 History of Present Illness History of Present Illness: RAY BURGESS is a 57 year old female active cancer status post removal of rectum with rectal pouch, metastasis to the brain, radiation therapy 3 days ago, came to the emergency room yesterday with corneal abrasion. The ER physician talked to the card scraper recommendation is erythromycin eyedrops and eye closure at that time patient was advised to stay in the hospital because she looks dehydrated even after giving 1 L of fluid but the patient chooses to go home and she was called this morning to come back to the emergency room because blood cultures are positive for gram-positive cocci. is given the history that patient is not eating well for the last 2 weeks. Because of the medicine the brain causing the weakness of the left side of the face difficulty in swallowing only thinks she able to take his liquids. And is on megestrol for appetite but patient has difficulty in eating solid food. Thinking about PEG tube placement. Hospital Course Hospital Course: This is a very pleasant but unfortunate 57 years old female patient whose past medical history of hypertension, hyperlipidemia tobacco dependence, and stage IV rectal CA with liver and brain metastases and currently receiving whole brain radiation. She presented to ER with chief complaint of corneal abrasion. There attending consulted card scraper for the corneal abrasion who recommended topical ophthalmic erythromycin and patching the involvement eye. Blood culture which was done 3 days ago also returned positive for gram- positive cocci which is later identified as strep pneumoniae and it is pansensitive. At this juncture her vancomycin and Zosyn switched to ceftriaxone. The last 2 days patient feels weak and she declined to have 2 sessions of radiation to her brain. Initially her resists is a option of hospice but as her condition deteriorated he opted for hospice care. Patient is going to be discharged to the for home hospice. Physical Exam Vital Signs: Temp Pulse Resp BP Pulse Ox 97.8 F 116 H 16 108/77 96 10/24/18 07:49 10/24/18 07:49 10/24/18 07:49 10/24/18 07:49 10/24/18 07:49 Intake & Output 10/23/18 10/24/18 10/25/18 06:59 06:59 06:59 Intake Total 1110 820 Output Total 1100 905 Balance 10 -85 Weight 51.2 kg General appearance: PRESENT: no acute distress, thin Eye exam: PRESENT: conjunctival injection Respiratory exam: PRESENT: clear to auscultation digna. ABSENT: rales, rhonchi, wheezes Cardiovascular exam: PRESENT: RRR. ABSENT: diastolic murmur, rubs, systolic murmur Neurological exam: PRESENT: alert, awake Results Laboratory Results: 10/23/18 10:37 10/23/18 10:37 10/23/18 10/23/18 10:37 10:37 WBC 11.4 H RBC 3.79 Hgb 10.4 L Hct 32.4 L MCV 85 MCH 27.5 MCHC 32.3 RDW 17.0 H Plt Count 243 Seg Neutrophils % Not Reportable Lymphocytes % Not Reportable Monocytes % Not Reportable Eosinophils % Not Reportable Basophils % Not Reportable Absolute Neutrophils Not Reportable Absolute Lymphocytes Not Reportable Absolute Monocytes Not Reportable Absolute Eosinophils Not Reportable Absolute Basophils Not Reportable Sodium 136.6 L Potassium 4.5 Chloride 112 H Carbon Dioxide 16 L Anion Gap 9 BUN 40 H Creatinine 1.08 Est GFR ( Amer) > 60 Est GFR (Non-Af Amer) 53 L Glucose 102 Calcium 8.9 Total Bilirubin 0.6 AST 297 H ALT 274 H Alkaline Phosphatase 455 H Total Protein 5.2 L Albumin 2.3 L 10/17/18 10/17/18 10/17/18 10:47 10:47 16:30 Creatine Kinase 120 132 CK-MB (CK-2) 0.45 Troponin I 0.027 NT-Pro-B Natriuret Pep 10/17/18 10/18/18 10/18/18 16:30 03:13 03:13 Creatine Kinase 133 CK-MB (CK-2) 0.44 0.43 Troponin I 0.025 0.017 NT-Pro-B Natriuret Pep 10/18/18 03:13 Creatine Kinase CK-MB (CK-2) Troponin I NT-Pro-B Natriuret Pep 288 Impressions: Chest X-Ray 10/17/18 14:48 IMPRESSION: NO ACUTE FINDINGS. Qualifiers - * PATIENT BEING DISCHARGED WITH ANY OF THE FOLLOWING DIAGNOSIS: No Acute Heart Failure Is this a Heart Failure Patient?: No
== END 2018-10-24 13:25 | disposition hospice, home (50) | DRG 871 ==
LOC: ER 08:58 → EH 13:43 → 4N 16:23
PROVIDERS: ADMIT Internal Medicine; ATTEND Internal Medicine
DX: A40.9 Streptococcal sepsis, unspecified (principal); R65.21 Severe sepsis with septic shock; N17.9 Acute kidney failure, unspecified; C20 Malignant neoplasm of rectum; C79.31 Secondary malignant neoplasm of brain; E87.1 Hypo-osmolality and hyponatremia; E46 Unspecified protein-calorie malnutrition; Z68.1 Body mass index [BMI] 19.9 or less, adult; E86.1 Hypovolemia; E78.00 Pure hypercholesterolemia, unspecified; I10 Essential (primary) hypertension; S05.02XA Injury of conjunctiva and corneal abrasion without foreign body, left eye, initial encounter; E87.5 Hyperkalemia; R00.0 Tachycardia, unspecified; G89.3 Neoplasm related pain (acute) (chronic); R13.12 Dysphagia, oropharyngeal phase; Z51.5 Encounter for palliative care
CPT/HCPCS: 36415; 71045; 80048; 80053; 80061; 81001; 82150; 82550; 82553; 83036; 83605; 83735; 83880; 84134; 84443; 84484; 85025; 87040; 87077; 87086; 87088; 87186; 93005; 93010; 93970; 96360; 96361; 99284; J0696; J1100; J1450; J1642; J1650; J2060; J2270; J2543; J3370; J3490; J7030; J7050; J7060; S0028